=== PATIENT | male | born 1990 | race Caucasian/White ===

== ENCOUNTER → 2016-10-31 | Outpatient (CLI) | payer BC ==
--- NOTE | 2016-10-31 17:02 | US ---
EXAMINATION TYPE: US venous doppler duplex LE RT DATE OF EXAM: 10/31/2016 4:52 PM COMPARISON: NONE CLINICAL HISTORY: Right calf pain, no injury or trauma. Findings: There is normal compressibility and spontaneous flow. No DVT as visualized. IMPRESSION: 1. No evidence of DVT
== END | disposition home or self-care (01) ==
LOC: RADUSWWP 16:30
PROVIDERS: ATTEND Family Medicine
DX: M79.661 Pain in right lower leg (principal)

== ENCOUNTER 2017-04-30 13:42 | Emergency (ER) | payer BC ==
[2017-04-30] MEDS ORDERED: SODIUM CHLORIDE 0.9% 1,000 ML IV STA (13:53)
[2017-04-30] MEDS ORDERED: ACETAMINOPHEN TAB 500 MG TAB PO STA (13:54)
--- NOTE | 2017-04-30 13:56 | ED ---
General Adult HPI - General Stated complaint: Seizure Time Seen by Provider: 04/30/17 13:45 Source: RN notes reviewed - History of Present Illness Initial comments: This is a 26-year-old male who [place] was feeling mildly nauseous and very lightheaded and eventually sat down and according to family sees for approximately 3 minutes. Patient eventually came around and is now back to his baseline. Patient states she's very thirsty and does have a headache. Patient states she has not had any recent fever or chills. Patient denies any recent nausea vomiting or diarrhea. Patient states he was not drinking he did not have any illegal drugs that he was taking. Patient denies any difficulty breathing or shortness of breath patient denies any chest pain or palpitations. Patient denies any areas of numbness or weakness. Patient denies any previous history of seizures. Patient states he is on Adderall has been for years - Related Data Home Medications Medication Instructions Recorded Confirmed Dextroamphetamine/Amphetamine 30 mg PO QAM 04/30/17 04/30/17 [Adderall Xr] Ibuprofen [Motrin] 800 mg PO Q8H PRN 04/30/17 04/30/17 OXcarbazepine [Trileptal] 300 mg PO DAILY 04/30/17 04/30/17 Sertraline [Zoloft] 50 mg PO DAILY 04/30/17 04/30/17 Previous Rx's Medication Instructions Recorded Cephalexin [Keflex] 500 mg PO Q6HR #28 cap 04/30/17 Allergies Allergy/AdvReac Type Severity Reaction Status Date / Time No Known Allergies Allergy Verified 04/30/17 14:57 Review of Systems ROS Statement: Those systems with pertinent positive or pertinent negative responses have been documented in the HPI. ROS Other: All systems not noted in ROS Statement are negative. General Exam - General Exam Comments Initial Comments: GENERAL: Patient is well-developed and well-nourished. Patient is nontoxic and well- hydrated and is in mild distress. ENT: Neck is soft and supple. No significant lymphadenopathy is noted. Oropharynx is clear. Moist mucous membranes. Neck has full range of motion without eliciting any pain. EYES: The sclera were anicteric and conjunctiva were pink and moist. Extraocular movements were intact and pupils were equal round and reactive to light. Eyelids were unremarkable. PULMONARY: Unlabored respirations. Good breath sounds bilaterally. No audible rales rhonchi or wheezing was noted. CARDIOVASCULAR: There is a regular rate and rhythm without any murmurs gallops or rubs. Femoral pulses are equal bilaterally ABDOMEN: Soft and nontender with normal bowel sounds. No palpable organomegaly was noted. There is no palpable pulsatile mass. SKIN: Skin is clear with no lesions or rashes and otherwise unremarkable. NEUROLOGIC: Patient is alert and oriented x3. Cranial nerves II through XII are grossly intact. Motor and sensory are also intact. Normal speech, volume and content. Symmetrical smile. MUSCULOSKELETAL: Normal extremities with adequate strength and full range of motion. No lower extremity swelling or edema. No calf tenderness. LYMPHATICS: No significant lymphadenopathy is noted PSYCHIATRIC: Normal psychiatric evaluation. Normal interpersonal interactions appears functionally intact in deals appropriately with others. No signs of depression. No signs of anxiety. Course Vital Signs 04/30/17 04/30/17 13:55 14:45 Temperature 98.1 F Pulse Rate 98 95 Respiratory 18 18 Rate Blood Pressure 146/96 137/83 O2 Sat by Pulse 99 100 Oximetry Medical Decision Making - Medical Decision Making EKG shows normal sinus rhythm at 92 bpm NH interval is 134 QRS is 94 QT interval 390 QTC is 482. Patient's EKG shows no ST segment elevation or depression or T-wave inversion noted CT of the brain shows no acute abnormality. Chest x-ray shows no acute abnormality. - Lab Data Result diagrams: 04/30/17 13:54 04/30/17 14:51 Lab Results 04/30/17 04/30/17 04/30/17 Range/Units 13:54 14:16 14:51 WBC 7.1 (3.8-10.6) k/uL RBC 5.25 (4.30-5.90) m/uL Hgb 16.8 (13.0-17.5) gm/dL Hct 47.7 (39.0-53.0) % MCV 90.7 D (80.0-100.0) fL MCH 31.9 (25.0-35.0) pg MCHC 35.2 (31.0-37.0) g/dL RDW 12.7 (11.5-15.5) % Plt Count 130 L (150-450) k/uL Neutrophils % 72 % Lymphocytes % 16 % Monocytes % 6 % Eosinophils % 3 % Basophils % 0 % Neutrophils # 5.1 (1.3-7.7) k/uL Lymphocytes # 1.1 (1.0-4.8) k/uL Monocytes # 0.5 (0-1.0) k/uL Eosinophils # 0.2 (0-0.7) k/uL Basophils # 0.0 (0-0.2) k/uL PT 9.7 (9.0-12.0) sec INR 0.9 (<1.1) APTT 22.9 (22.0-30.0) sec Sodium (137-145) mmol/L Potassium (3.5-5.1) mmol/L Chloride (98-107) mmol/L Carbon Dioxide (22-30) mmol/L Anion Gap mmol/L BUN (9-20) mg/dL Creatinine (0.66-1.25) mg/dL Est GFR (MDRD) Af Amer (>60 ml/min/1.73 sqM) Est GFR (MDRD) Non-Af (>60 ml/min/1.73 sqM) Glucose (74-99) mg/dL Calcium (8.4-10.2) mg/dL Magnesium (1.6-2.3) mg/dL Total Bilirubin (0.2-1.3) mg/dL AST (17-59) U/L ALT (21-72) U/L Alkaline Phosphatase (38-126) U/L Total Creatine Kinase (55-170) U/L CK-MB (CK-2) (0.0-2.4) ng/mL CK-MB (CK-2) Rel Index Troponin I (0.000-0.034) ng/mL Total Protein (6.3-8.2) g/dL Albumin (3.5-5.0) g/dL Urine Opiates Screen Not Detected (NotDetected) Ur Oxycodone Screen Not Detected (NotDetected) Urine Methadone Screen Not Detected (NotDetected) Ur Propoxyphene Screen Not Detected (NotDetected) Ur Barbiturates Screen Not Detected (NotDetected) U Tricyclic Antidepress Not Detected (NotDetected) Ur Phencyclidine Scrn Not Detected (NotDetected) Ur Amphetamines Screen Detected H (NotDetected) U Methamphetamines Scrn Not Detected (NotDetected) U Benzodiazepines Scrn Not Detected (NotDetected) Urine Cocaine Screen Not Detected (NotDetected) U Marijuana (THC) Screen Detected H (NotDetected) 04/30/17 04/30/17 Range/Units 14:51 14:51 WBC (3.8-10.6) k/uL RBC (4.30-5.90) m/uL Hgb (13.0-17.5) gm/dL Hct (39.0-53.0) % MCV (80.0-100.0) fL MCH (25.0-35.0) pg MCHC (31.0-37.0) g/dL RDW (11.5-15.5) % Plt Count (150-450) k/uL Neutrophils % % Lymphocytes % % Monocytes % % Eosinophils % % Basophils % % Neutrophils # (1.3-7.7) k/uL Lymphocytes # (1.0-4.8) k/uL Monocytes # (0-1.0) k/uL Eosinophils # (0-0.7) k/uL Basophils # (0-0.2) k/uL PT (9.0-12.0) sec INR (<1.1) APTT (22.0-30.0) sec Sodium 140 (137-145) mmol/L Potassium 3.9 (3.5-5.1) mmol/L Chloride 110 H (98-107) mmol/L Carbon Dioxide 22 (22-30) mmol/L Anion Gap 8 mmol/L BUN 10 (9-20) mg/dL Creatinine 0.69 (0.66-1.25) mg/dL Est GFR (MDRD) Af Amer >60 (>60 ml/min/1.73 sqM) Est GFR (MDRD) Non-Af >60 (>60 ml/min/1.73 sqM) Glucose 104 H (74-99) mg/dL Calcium 8.7 (8.4-10.2) mg/dL Magnesium 2.4 H (1.6-2.3) mg/dL Total Bilirubin 0.7 (0.2-1.3) mg/dL AST 42 (17-59) U/L ALT 55 (21-72) U/L Alkaline Phosphatase 82 (38-126) U/L Total Creatine Kinase 167 (55-170) U/L CK-MB (CK-2) 0.9 (0.0-2.4) ng/mL CK-MB (CK-2) Rel Index 0.5 Troponin I <0.012 (0.000-0.034) ng/mL Total Protein 6.9 (6.3-8.2) g/dL Albumin 4.4 (3.5-5.0) g/dL Urine Opiates Screen (NotDetected) Ur Oxycodone Screen (NotDetected) Urine Methadone Screen (NotDetected) Ur Propoxyphene Screen (NotDetected) Ur Barbiturates Screen (NotDetected) U Tricyclic Antidepress (NotDetected) Ur Phencyclidine Scrn (NotDetected) Ur Amphetamines Screen (NotDetected) U Methamphetamines Scrn (NotDetected) U Benzodiazepines Scrn (NotDetected) Urine Cocaine Screen (NotDetected) U Marijuana (THC) Screen (NotDetected) Disposition Clinical Impression: New onset seizure, Abscess of left ear canal Disposition: HOME SELF-CARE Condition: Good Instructions: New-Onset Seizure in Adults (ED) Additional Instructions: Patient cannot drive until cleared by neurologist. Patient follow-up with a neurologist as soon as possible. Prescriptions: Cephalexin [Keflex] 500 mg PO Q6HR #28 cap Referrals: Danis Thomason MD [Primary Care Provider] - 1-2 days
[2017-04-30 13:58] VITALS: RESP 18
[2017-04-30 14:10] LABS: Basophils % (A) 0 %; CH 31.2; CHCM 34.4; Eosinophils # (A) 0.2 k/uL (0-0.7); Eosinophils % (A) 3 %; HCT 47.7 % (39.0-53.0); HDW 2.28; HGB 16.8 gm/dL (13.0-17.5); Luc # (Auto) 0.16; Luc % (Auto) 2; Lymphocytes # (A) 1.1 k/uL (1.0-4.8); Lymphocytes % (A) 16 %; MCH 31.9 pg (25.0-35.0); MCHC 35.2 g/dL (31.0-37.0); Mean Platelet Volume 8.2; Monocytes # (A) 0.5 k/uL (0-1.0); Monocytes % (A) 6 %; Neutrophils # (A) 5.1 k/uL (1.3-7.7); Neutrophils % (A) 72 %; RBC 5.25 m/uL (4.30-5.90); RDW 12.7 % (11.5-15.5); WBC 7.1 k/uL (3.8-10.6); WBC (Perox) 7.13
[2017-04-30 14:20] LABS: MCV 90.7 fL (80.0-100.0)
--- NOTE | 2017-04-30 14:36 | CT ---
EXAMINATION TYPE: CT brain wo con DATE OF EXAM: 04/30/2017 COMPARISON: NONE HISTORY: New onset seizure today CT DLP: 1012.7 mGycm. Automated Exposure Control for Dose Reduction was Utilized. TECHNIQUE: CT scan of the head is performed without contrast. FINDINGS: Ventricles of normal size. There is no mass effect nor midline shift. There is no sign of i ntracranial hemorrhage. The calvarium is intact. There is mucosal thickening in the ethmoid and front al sinuses. CONCLUSION: Negative CT scan of the brain. Ethmoid and frontal sinusitis.
--- NOTE | 2017-04-30 14:40 | XR ---
EXAMINATION TYPE: XR chest 2V DATE OF EXAM: 04/30/2017 COMPARISON: NONE HISTORY: Seizure. Chest pain TECHNIQUE: Frontal and lateral views of the chest are obtained. FINDINGS: Heart and mediastinum are normal. Lungs are clear. Diaphragm is normal. There are chest le ads. Point thorax appears normal. IMPRESSION: Normal chest
[2017-04-30 15:10] LABS: INR 0.9 (<1.1); Partial Thromboplastin Time 22.9 sec (22.0-30.0); Prothrombin Time 9.7 sec (9.0-12.0)
[2017-04-30 15:12] LABS: ALT 55 U/L (21-72); AST 42 U/L (17-59); Alkaline Phosphatase 82 U/L (38-126); Anion Gap 8 mmol/L; Blood Urea Nitrogen 10 mg/dL (9-20); Calcium 8.7 mg/dL (8.4-10.2); Carbon Dioxide 22 mmol/L (22-30); Chloride 110 mmol/L (98-107); Glucose 104 mg/dL (74-99); Magnesium 2.4 mg/dL (1.6-2.3); Non-African American GFR(MDRD) >60 (>60 ml/min/1.73 sqM); Potassium 3.9 mmol/L (3.5-5.1); Sodium 140 mmol/L (137-145); Total Bilirubin 0.7 mg/dL (0.2-1.3); Total Protein 6.9 g/dL (6.3-8.2)
[2017-04-30 15:24] LABS: Creatine Kinase 167 U/L (55-170)
[2017-04-30 15:37] LABS: Creatine Kinase MB 0.9 ng/mL (0.0-2.4); Troponin I <0.012 ng/mL (0.000-0.034)
[2017-04-30 16:03] VITALS: BP 126/82; PULSE 83; TEMP 98.4
== END 2017-04-30 16:03 | disposition home or self-care (01) ==
LOC: EC 13:42
DX: R56.9 Unspecified convulsions (principal); H60.02 Abscess of left external ear; R51 Headache; R11.0 Nausea; R42 Dizziness and giddiness; Z79.899 Other long term (current) drug therapy
CPT/HCPCS: 36415; 70450; 71020; 80053; 80306; 82550; 82553; 83735; 84484; 85025; 85610; 85730; 93005; 96360; 99285

== ENCOUNTER → 2017-06-20 | Outpatient (CLI) | payer BC ==
--- NOTE | 2017-06-20 12:35 | MR ---
EXAMINATION TYPE: MR brain wo/w con DATE OF EXAM: 06/20/2017 COMPARISON: NONE HISTORY: Seizure, Horners Syndrome TECHNIQUE: Multiplanar, multisequence images of the brain and brainstem is performed without and with IV contras t, utilizing 15 mL intravenous MultiHance . FINDINGS: Diffusion weighted images demonstrate no evidence of a recent infarct or other diffusion ab normality. There is no extra-axial fluid collection or significant white matter signal abnormality. Changes of chronic sinusitis are noted. Midline structures demonstrate normal morphology. The craniocervical junction appears within normal limits. Post contrast images demonstrate no abnormal enhancement. The dural venous sinuses appear pa tent. The visualized sinuses are clear and the globes are intact. IMPRESSION: 1. Chronic sinusitis with no evidence of intracranial mass.
== END ==
LOC: RADMRIMAIN 11:02
PROVIDERS: ATTEND Psychiatry & Neurology Neurology
DX: G90.2 Horner's syndrome (principal); R56.9 Unspecified convulsions
CPT/HCPCS: 70553; A9577

== ENCOUNTER 2018-04-23 12:43 | Observation (INO) | payer BC, OTHER ==
--- NOTE | 2018-04-23 13:23 | ED ---
Fall HPI <Jerson Barth - Last Filed: 04/23/18 14:55> - General Source: patient, RN notes reviewed Mode of arrival: ambulatory <Aracely Silva - Last Filed: 04/23/18 17:56> - General Chief Complaint: Fall Stated Complaint: Fall-Rib Pain Time Seen by Provider: 04/23/18 12:50 - History of Present Illness Initial Comments: This is a 27-year-old male who presents to the emergency department with chief complaint of fall injury. Patient states that last evening at approximately 6 or 7 PM he fell down 6 steps. He states that he landed on his left side. He states that he instantly he had a lot of left-sided rib pain but thought that he could ride it out. He states that today he has developed some difficulty breathing and pain with deep breathing. He states that he has also felt nauseous. Denies fevers or chills, chest pain, abdominal pain, vomiting, dizziness or headache. He denies any other injuries or trauma. (Aracely Silva) - Related Data Home Medications Medication Instructions Recorded Confirmed Ibuprofen [Advil] 600 mg PO Q6HR PRN 04/23/18 04/23/18 Allergies Allergy/AdvReac Type Severity Reaction Status Date / Time No Known Allergies Allergy Verified 04/23/18 13:11 Review of Systems ROS Other: All systems not noted in ROS Statement are negative. <Jerson Barth - Last Filed: 04/23/18 14:55> ROS Other: All systems not noted in ROS Statement are negative. <Aracely Silva - Last Filed: 04/23/18 17:56> ROS Statement: Those systems with pertinent positive or pertinent negative responses have been documented in the HPI. Past Medical History Past Medical History: No Reported History History of Any Multi-Drug Resistant Organisms: None Reported Past Surgical History: No Surgical Hx Reported Past Psychological History: No Psychological Hx Reported Smoking Status: Current every day smoker Past Alcohol Use History: Occasional Past Drug Use History: Marijuana <Aracely Silva - Last Filed: 04/23/18 17:56> General Exam <Jerson Barth - Last Filed: 04/23/18 14:55> Limitations: no limitations (Initial vital signs: Temperature 98.6, pulse 102, respirations 20, blood pressure 155/85, pulse ox 96% on room air) <Aracely Silva - Last Filed: 04/23/18 17:56> - General Exam Comments Initial Comments: General: Awake and alert, well-developed; in no apparent distress. Patient is pale, diaphoretic and shaking. HEENT: Head atraumatic, normocephalic. Pupils are equal, round and reactive to light. Extraocular movements intact. Oropharynx moist without erythema or exudate. Neck: Supple. Normal ROM. Cardiovascular: Regular rate and rhythm. No murmurs, rubs or gallops. Chest symmetrical. Respiratory: Shallow breathing. Decreased breath sounds left lung. Right is clear to auscultation. No wheezes or rales. There is subcutaneous emphysema palpated left posterior thoracic region. Abdomen: Soft, non-tender, non-distended. No rigidity, rebound or guarding. Normal bowel sounds in all 4 quadrants. Ecchymosis noted to the left flank. Musculoskeletal: Normal ROM, no tenderness bilateral upper and lower extremities. Skin: [place], warm and dry without rashes. Neurological: Alert and oriented x3. CN II-XII grossly intact. Speech is fluent and answers are appropriate. No focal neuro deficits. Psychiatric: Normal mood and affect. No overt signs of depression or anxiety noted. (Aracely Silva) Course <Jerson Barth B - Last Filed: 04/23/18 14:55> <Aracely Silva - Last Filed: 04/23/18 17:56> Vital Signs 04/23/18 04/23/18 04/23/18 12:50 13:17 13:19 Temperature 98.6 F Pulse Rate 102 H 110 H Respiratory 20 28 H 26 H Rate Blood Pressure 155/85 162/108 O2 Sat by Pulse 96 97 Oximetry 04/23/18 04/23/18 04/23/18 14:02 14:36 16:27 Temperature Pulse Rate 100 114 H 95 Respiratory 22 20 18 Rate Blood Pressure 145/104 155/99 156/98 O2 Sat by Pulse 99 99 99 Oximetry - Reevaluation(s) Reevaluation #1: Spoke with Dr. Law, radiologist. He reports flail chest with rib fractures 9 through 12. 25% pneumothorax with small hemothorax left lung. No solid visceral organ damage. I also spoke with Dr. Kahn prior to this about patient' s chest x-ray. He reported an approximately 10% pneumothorax. 04/23/18 14:05 (Aracely Silva) Medical Decision Making - Lab Data Result diagrams: 04/23/18 13:56 04/23/18 13:56 <Jerson Barth - Last Filed: 04/23/18 14:55> - Lab Data Result diagrams: 04/23/18 13:56 04/23/18 13:56 - Radiology Data Radiology results: report reviewed, image reviewed <Aracely Silva - Last Filed: 04/23/18 17:56> - Medical Decision Making This is a 27-year-old male who presents to the emergency department with chief complaint of left rib pain following a fall yesterday. Patient reported difficulty breathing and pain with breathing. On physical examination, subcutaneous emphysema was palpated to the left posterior chest wall, easily movable left posterior rib, suspicious for flail chest. Decreased breath sounds left lung. Ecchymosis noted to the left flank. This case was discussed with both attending physicians, Dr. Barth and Dr. Alejandro. After radiology studies have resulted, case was signed over to Dr. Barth. Patient admitted to the hospital for further evaluation and treatment. Patient in no acute distress. (Aracely Silva) - Lab Data Lab Results 04/23/18 04/23/18 Range/Units 13:56 13:56 WBC 11.7 H (3.8-10.6) k/uL RBC 4.81 (4.30-5.90) m/uL Hgb 15.5 (13.0-17.5) gm/dL Hct 45.1 (39.0-53.0) % MCV 93.7 (80.0-100.0) fL MCH 32.1 (25.0-35.0) pg MCHC 34.3 (31.0-37.0) g/dL RDW 13.1 (11.5-15.5) % Plt Count 217 (150-450) k/uL Neutrophils % 84 % Lymphocytes % 8 % Monocytes % 7 % Eosinophils % 0 % Basophils % 0 % Neutrophils # 9.8 H (1.3-7.7) k/uL Lymphocytes # 0.9 L (1.0-4.8) k/uL Monocytes # 0.8 (0-1.0) k/uL Eosinophils # 0.0 (0-0.7) k/uL Basophils # 0.0 (0-0.2) k/uL Sodium 135 L (137-145) mmol/L Potassium 4.8 (3.5-5.1) mmol/L Chloride 94 L (98-107) mmol/L Carbon Dioxide 15 L (22-30) mmol/L Anion Gap 26 mmol/L BUN 13 (9-20) mg/dL Creatinine 0.71 (0.66-1.25) mg/dL Est GFR (CKD-EPI)AfAm >90 (>60 ml/min/1.73 sqM) Est GFR (CKD-EPI)NonAf >90 (>60 ml/min/1.73 sqM) Glucose 114 H (74-99) mg/dL Calcium 9.4 (8.4-10.2) mg/dL Total Bilirubin 0.9 (0.2-1.3) mg/dL AST 90 H (17-59) U/L ALT 110 H (21-72) U/L Alkaline Phosphatase 78 (38-126) U/L Total Protein 7.5 (6.3-8.2) g/dL Albumin 5.1 H (3.5-5.0) g/dL - Radiology Data Chest CT impression: Small left apical pneumothorax estimated 10%. Patchy bibasilar atelectasis and/or infiltrates. No definitive displaced rib fractures. Consider CT follow-up. (Aracely Silva) Disposition Is patient prescribed a controlled substance at d/c from ED?: No <Jerson Barth - Last Filed: 04/23/18 14:55> <Aracely Silva - Last Filed: 04/23/18 17:56> Clinical Impression: Fall, Multiple rib fractures, Pneumothorax, left Disposition: ADMITTED IP TO THIS HOSP Condition: Good
--- NOTE | 2018-04-23 13:35 | XR ---
EXAMINATION TYPE: XR chest 1V portable DATE OF EXAM: 04/23/2018 COMPARISON: Chest x-ray April 30, 2017 HISTORY: Left-sided pain after fall injury last night. TECHNIQUE: Single AP portable frontal upright view of the chest is obtained. FINDINGS: There is bibasilar opacity consistent with atelectasis and/or infiltrate. There is small l eft-sided pneumothorax estimated 10%. The cardiac silhouette size is within normal limits. The osse ous structures are intact on plain films. IMPRESSION: Small left apical pneumothorax estimated 10%. Patchy bibasilar atelectasis and/or infilt rates. No definitive displaced rib fractures. Consider CT follow-up. Critical results of pneumothorax called to emergency room physician social service assistant via telephone at time o f dictation.
[2018-04-23] MEDS: MORPHINE SULFATE 2 MG/ML SYRINGE IVP STA ×2 (14:01→14:30)
--- NOTE | 2018-04-23 14:04 | CT ---
EXAMINATION TYPE: CT ChestAbdPelvis w con DATE OF EXAM: 04/23/2018 COMPARISON: NONE HISTORY: Fall-Rib pain CT DLP: 868.30 mGycm CONTRAST: CT scan of the chest, abdomen and pelvis is performed with Oral Contrast and with IV Contrast, patien t injected with 100 ml mL of Isovue 300. CT Chest: LUNGS: Left-sided pneumothorax identified estimated at 25%. Left basilar pneumothorax with the left l ower lobe atelectasis or pulmonary contusion. Atelectasis right lower lobe anteriorly. Left-sided sub cutaneous emphysema. MEDIASTINUM: Thoracic aorta is of normal caliber. The heart is not enlarged. No evidence for media stinal mass or adenopathy. No mediastinal shift. HILAR STRUCTURES: No evidence for mass. No hilar adenopathy is appreciated. OTHER: Left sided segmental rib fractures of the 9 through 11. Fracture of left rib 12. Flail chest n ot excluded. CONTRAST CT ABDOMEN AND PELVIS FINDINGS: LIVER/GB: There is evidence of hepatic steatosis. No calcified gallstones. No space occupying hepat ic lesion. Biliary tree is of normal caliber. Fatty liver noted. PANCREAS: No inflammation. No distinct mass. SPLEEN: No splenic enlargement. No lesion seen. ADRENALS: No nodule. No thickening. KIDNEYS/BLADDER: No hydronephrosis. No nephrolithiasis. No disctinct renal mass. BOWEL: Normal appendix. Normal bowel caliber. No inflammation. GENITAL ORGANS: No gross abnormality. LYMPH NODES: No greater than 1cm abdominal or pelvic lymph nodes are appreciated. AORTA: No significant abnormality. OSSEOUS STRUCTURES: No significant abnormality is seen. OTHER: No significant additional abnormality is seen. IMPRESSION: 1. Left-sided pneumothorax identified estimated at 25%. Left basilar pneumothorax with the left lower lobe atelectasis or pulmonary contusion. 2. Multiple left-sided rib fractures with segmental components. Findings suspicious for flail chest.
[2018-04-23] MEDS ORDERED: LORazepam 2 MG/ML INJ IV STA (14:31)
[2018-04-23] MEDS ORDERED: KETOROLAC 30 MG/ML 1 ML VIAL IVP STA (14:31)
[2018-04-23 14:35] LABS: Basophils % (A) 0 %; Eosinophils % (A) 0 %; HCT 45.1 % (39.0-53.0); HGB 15.5 gm/dL (13.0-17.5); Lymphocytes # (A) 0.9 k/uL (1.0-4.8); Lymphocytes % (A) 8 %; MCH 32.1 pg (25.0-35.0); MCHC 34.3 g/dL (31.0-37.0); MCV 93.7 fL (80.0-100.0); Mean Platelet Volume 7.6; Monocytes # (A) 0.8 k/uL (0-1.0); Monocytes % (A) 7 %; Neutrophils # (A) 9.8 k/uL (1.3-7.7); Neutrophils % (A) 84 %; Platelet Count 217 k/uL (150-450); RBC 4.81 m/uL (4.30-5.90); RDW 13.1 % (11.5-15.5); WBC 11.7 k/uL (3.8-10.6)
[2018-04-23 14:49] LABS: ALT 110 U/L (21-72); AST 90 U/L (17-59); Albumin 5.1 g/dL (3.5-5.0); Alkaline Phosphatase 78 U/L (38-126); Anion Gap 26 mmol/L; Blood Urea Nitrogen 13 mg/dL (9-20); Calcium 9.4 mg/dL (8.4-10.2); Carbon Dioxide 15 mmol/L (22-30); Chloride 94 mmol/L (98-107); Glucose 114 mg/dL (74-99); Potassium 4.8 mmol/L (3.5-5.1); Sodium 135 mmol/L (137-145); Total Bilirubin 0.9 mg/dL (0.2-1.3); Total Protein 7.5 g/dL (6.3-8.2)
[2018-04-23] MEDS ORDERED: SODIUM CHLORIDE 0.9% 1,000 ML IV ONE (14:56)
--- NOTE | 2018-04-23 15:06 | P.GSCN ---
<Regla Genao - Last Filed: 04/23/18 14:54> History of Present Illness Consult date: 04/23/18 Reason for Consult: Left pneumothorax, possible flail chest Requesting physician: Jerson Barth History of present illness: This is a 27-year-old gentleman who does not follow with a primary care physician on an outpatient basis. He has no significant previous medical history other than current pack-a-day smoker, occasional marijuana use, occasional alcohol use. Apparently he fell down 6 stairs last night after tripping over issue and immediately felt some left-sided chest pain but felt he could wait it out. This morning he woke up had increased pain and difficulty in breathing and felt he needed to come into the emergency room for evaluation. Chest x-ray completed in the emergency room demonstrated small left apical pneumothorax approximately 10%. Left-sided pneumothorax was identified on chest CT as well as rib fractures 9 through 11 and 12, flail chest could not be excluded. For this reason Dr. Guerra from cardiothoracic surgery was consulted for surgical recommendations. Review of Systems Review of systems was completed and was negative except as noted. - Cardiovascular Reports chest pain, Reports shortness of breath - Respiratory Reports pain Past Medical History Past Medical History: No Reported History Additional Past Medical History / Comment(s): Patient reports one seizure with no treatment or known cause History of Any Multi-Drug Resistant Organisms: None Reported Past Surgical History: No Surgical Hx Reported Past Psychological History: No Psychological Hx Reported Smoking Status: Current every day smoker Past Alcohol Use History: Occasional Past Drug Use History: Marijuana Medications and Allergies Home Medications Medication Instructions Recorded Confirmed Type Ibuprofen [Advil] 600 mg PO Q6HR PRN 04/23/18 04/23/18 History HYDROcodone/APAP 10-325MG [[place] 1 tab PO Q4HR PRN #30 tab 04/24/18 Rx 10-325] Ibuprofen 800 mg PO Q8HR #45 tablet 04/24/18 Rx Methocarbamol [Robaxin-750] 750 mg PO TID #30 tablet 04/24/18 Rx Allergies Allergy/AdvReac Type Severity Reaction Status Date / Time No Known Allergies Allergy Verified 04/23/18 13:11 Surgical - Exam Vital Signs Temp Pulse Resp BP Pulse Ox 98.6 F 102 H 20 155/85 96 04/23/18 12:50 04/23/18 12:50 04/23/18 12:50 04/23/18 12:50 04/23/18 12:50 - General well developed, well nourished, no distress - Eyes PERRL, normal ocular movement - ENT no hearing loss - Neck no masses, no bruits, trachea midline - Respiratory Lungs sounds diminished on the left. Respirations even, nonlabored. Currently on 2 L nasal cannula with oxygen saturation 99%. No paradoxical movement of the chest wall. - Cardiovascular S1, S2 present. Tachycardic but regular rate and rhythm, sinus tach on telemetry. Palpable peripheral pulses bilaterally. No edema present. No calf pain or tenderness noted. - Abdomen Abdomen: soft, non tender, bowel sounds - Genitourinary Deferred - Rectum Deferred - Integumentary no rash, no growths, no abnormal pigmentation - Neurologic normal coordination, normal sensation - Psychiatric oriented to time, oriented to person, oriented to place, speech is normal, memory intact Results - Labs 04/23/18 13:56 04/23/18 13:56 Abnormal Lab Results - Last 24 Hours (Table) 04/23/18 04/23/18 Range/Units 13:56 13:56 WBC 11.7 H (3.8-10.6) k/uL Neutrophils # 9.8 H (1.3-7.7) k/uL Lymphocytes # 0.9 L (1.0-4.8) k/uL Sodium 135 L (137-145) mmol/L Chloride 94 L (98-107) mmol/L Carbon Dioxide 15 L (22-30) mmol/L Glucose 114 H (74-99) mg/dL AST 90 H (17-59) U/L ALT 110 H (21-72) U/L Albumin 5.1 H (3.5-5.0) g/dL Diabetes panel 04/23/18 Range/Units 13:56 Sodium 135 L (137-145) mmol/L Potassium 4.8 (3.5-5.1) mmol/L Chloride 94 L (98-107) mmol/L Carbon Dioxide 15 L (22-30) mmol/L BUN 13 (9-20) mg/dL Creatinine 0.71 (0.66-1.25) mg/dL Glucose 114 H (74-99) mg/dL Calcium 9.4 (8.4-10.2) mg/dL AST 90 H (17-59) U/L ALT 110 H (21-72) U/L Alkaline Phosphatase 78 (38-126) U/L Total Protein 7.5 (6.3-8.2) g/dL Albumin 5.1 H (3.5-5.0) g/dL Calcium panel 04/23/18 Range/Units 13:56 Calcium 9.4 (8.4-10.2) mg/dL Albumin 5.1 H (3.5-5.0) g/dL Pituitary panel 04/23/18 Range/Units 13:56 Sodium 135 L (137-145) mmol/L Potassium 4.8 (3.5-5.1) mmol/L Chloride 94 L (98-107) mmol/L Carbon Dioxide 15 L (22-30) mmol/L BUN 13 (9-20) mg/dL Creatinine 0.71 (0.66-1.25) mg/dL Glucose 114 H (74-99) mg/dL Calcium 9.4 (8.4-10.2) mg/dL Adrenal panel 04/23/18 Range/Units 13:56 Sodium 135 L (137-145) mmol/L Potassium 4.8 (3.5-5.1) mmol/L Chloride 94 L (98-107) mmol/L Carbon Dioxide 15 L (22-30) mmol/L BUN 13 (9-20) mg/dL Creatinine 0.71 (0.66-1.25) mg/dL Glucose 114 H (74-99) mg/dL Calcium 9.4 (8.4-10.2) mg/dL Total Bilirubin 0.9 (0.2-1.3) mg/dL AST 90 H (17-59) U/L ALT 110 H (21-72) U/L Alkaline Phosphatase 78 (38-126) U/L Total Protein 7.5 (6.3-8.2) g/dL Albumin 5.1 H (3.5-5.0) g/dL - Imaging Chest x-ray: report reviewed, image reviewed CT scan - chest: report reviewed, image reviewed Assessment and Plan (1) Pneumothorax Status: Acute Code(s): J93.9 - PNEUMOTHORAX, UNSPECIFIED SNOMED Code(s): 16975635 (2) Rib fractures Status: Acute Code(s): S22.39XA - FRACTURE OF ONE RIB, UNSP SIDE, INIT FOR CLOS FX SNOMED Code(s): 26848027 (3) Tobacco dependence Status: Chronic Code(s): F17.200 - NICOTINE DEPENDENCE, UNSPECIFIED, UNCOMPLICATED SNOMED Code(s): 49310513 (4) Marijuana use Status: Chronic Code(s): F12.90 - CANNABIS USE, UNSPECIFIED, UNCOMPLICATED SNOMED Code(s): 069591708 (5) Fall from standing Status: Acute Code(s): W19.XXXA - UNSPECIFIED FALL, INITIAL ENCOUNTER SNOMED Code(s): 9847752 Plan: The patient was seen and examined in the emergency room. He is in no significant distress. Case discussed in detail with Dr. Guerra, he reviewed chest x-ray in CT films. At this time our recommendation is to place patient on oxygen via high flow nasal cannula, encourage incentive spirometry use, chest x-ray in the morning, pain control, and no surgical intervention at this point. We will check his x-ray results tomorrow morning and make further treatment recommendations at that time. Thank you for this consult. We look forward to working with you in the care of the patient. Time with Patient: Greater than 30 <Meet Guerra R - Last Filed: 04/25/18 12:04> Surgical - Exam Vital Signs Temp Pulse Resp BP Pulse Ox 98.6 F 102 H 20 155/85 96 04/23/18 12:50 04/23/18 12:50 04/23/18 12:50 04/23/18 12:50 04/23/18 12:50 Results - Labs 04/23/18 13:56 04/23/18 13:56 Assessment and Plan Assessment: Patient was seen and examined. Radiologic studies were reviewed. Case was discussed with nurse practitioner. I agree with the nurse practitioner assessment and evaluation as documented. Patient has a small pneumothorax which should be able to be managed conservatively. There is no significant fluid in the pleural space. There are 4 minimally to nondisplaced posterior rib fractures ribs and 08/07/2012. These also could be successfully and safely managed conservatively. We will keep the patient overnight and reevaluate chest x-ray in the morning.
[2018-04-23] MEDS ORDERED: METHOCARBAMOL 750 MG TAB PO PRN (16:37)
[2018-04-23] MEDS: MORPHINE SULFATE 2 MG/ML SYRINGE IVP PRN ×2 (16:49→22:19)
[2018-04-23] MEDS: KETOROLAC 30 MG/ML 1 ML VIAL IVP SCH ×2 (17:02→23:41)
--- NOTE | 2018-04-23 17:05 | P.GSHP ---
History of Present Illness H&P Date: 04/23/18 This is a 27-year-old male who fell down 6 stairs after tripping on a shoe last night. He was complaining of some back and chest pain last night however he thought that it would get better on its own when he woke up this morning the pain was still there and continued throughout the day so he presented to the emergency department. In the emergency department he was found have multiple rib fractures on the left side with a 25% pneumothorax on computed tomography scan. Patient denies any abdominal pain he denies hitting his head he denies any loss of consciousness. He has no significant past medical history. Past surgical history of a hydrocele and right shoulder surgery Past Medical History Past Medical History: No Reported History Additional Past Medical History / Comment(s): Patient reports one seizure with no treatment or known cause History of Any Multi-Drug Resistant Organisms: None Reported Past Surgical History: No Surgical Hx Reported Past Psychological History: No Psychological Hx Reported Smoking Status: Current every day smoker Past Alcohol Use History: Occasional Past Drug Use History: Marijuana Medications and Allergies Home Medications Medication Instructions Recorded Confirmed Type Ibuprofen [Advil] 600 mg PO Q6HR PRN 04/23/18 04/23/18 History Allergies Allergy/AdvReac Type Severity Reaction Status Date / Time No Known Allergies Allergy Verified 04/23/18 13:11 Surgical - Exam Osteopathic Statement: *. No significant issues noted on an osteopathic structural exam other than those noted in the History and Physical/Consult. Vital Signs Temp Pulse Resp BP Pulse Ox 98.6 F 102 H 20 155/85 96 04/23/18 12:50 04/23/18 12:50 04/23/18 12:50 04/23/18 12:50 04/23/18 12:50 Results - Labs 04/23/18 13:56 04/23/18 13:56 Abnormal Lab Results - Last 24 Hours (Table) 04/23/18 04/23/18 Range/Units 13:56 13:56 WBC 11.7 H (3.8-10.6) k/uL Neutrophils # 9.8 H (1.3-7.7) k/uL Lymphocytes # 0.9 L (1.0-4.8) k/uL Sodium 135 L (137-145) mmol/L Chloride 94 L (98-107) mmol/L Carbon Dioxide 15 L (22-30) mmol/L Glucose 114 H (74-99) mg/dL AST 90 H (17-59) U/L ALT 110 H (21-72) U/L Albumin 5.1 H (3.5-5.0) g/dL Diabetes panel 04/23/18 Range/Units 13:56 Sodium 135 L (137-145) mmol/L Potassium 4.8 (3.5-5.1) mmol/L Chloride 94 L (98-107) mmol/L Carbon Dioxide 15 L (22-30) mmol/L BUN 13 (9-20) mg/dL Creatinine 0.71 (0.66-1.25) mg/dL Glucose 114 H (74-99) mg/dL Calcium 9.4 (8.4-10.2) mg/dL AST 90 H (17-59) U/L ALT 110 H (21-72) U/L Alkaline Phosphatase 78 (38-126) U/L Total Protein 7.5 (6.3-8.2) g/dL Albumin 5.1 H (3.5-5.0) g/dL Calcium panel 04/23/18 Range/Units 13:56 Calcium 9.4 (8.4-10.2) mg/dL Albumin 5.1 H (3.5-5.0) g/dL Pituitary panel 04/23/18 Range/Units 13:56 Sodium 135 L (137-145) mmol/L Potassium 4.8 (3.5-5.1) mmol/L Chloride 94 L (98-107) mmol/L Carbon Dioxide 15 L (22-30) mmol/L BUN 13 (9-20) mg/dL Creatinine 0.71 (0.66-1.25) mg/dL Glucose 114 H (74-99) mg/dL Calcium 9.4 (8.4-10.2) mg/dL Adrenal panel 04/23/18 Range/Units 13:56 Sodium 135 L (137-145) mmol/L Potassium 4.8 (3.5-5.1) mmol/L Chloride 94 L (98-107) mmol/L Carbon Dioxide 15 L (22-30) mmol/L BUN 13 (9-20) mg/dL Creatinine 0.71 (0.66-1.25) mg/dL Glucose 114 H (74-99) mg/dL Calcium 9.4 (8.4-10.2) mg/dL Total Bilirubin 0.9 (0.2-1.3) mg/dL AST 90 H (17-59) U/L ALT 110 H (21-72) U/L Alkaline Phosphatase 78 (38-126) U/L Total Protein 7.5 (6.3-8.2) g/dL Albumin 5.1 H (3.5-5.0) g/dL Assessment and Plan Assessment: Multiple rib fx and pneumothorax s/p fall down 6 stairs Plan: Patient was seen by thoracic surgery in the emergency department. They did not recommend thora-Vent or chest tube placement at this time. Patient was started on oxygen via nasal cannula and will have a repeat chest x-ray in the morning. He'll be started on morphine, [place], Robaxin, and Toradol for pain control. The importance of incentive spirometry and deep breathing was discussed with the patient who stated he understood and would comply.
[2018-04-23 19:16] VITALS: RESP 18
[2018-04-23] MEDS: HYDROcodone/APAP 5-325MG 1 EACH TAB PO PRN (19:52)
[2018-04-23] MEDS ORDERED: ONDANSETRON 4 MG/2 ML VIAL IVP PRN (19:59)
[2018-04-24] MEDS: MORPHINE SULFATE 2 MG/ML SYRINGE IVP PRN ×3 (02:13→09:20)
[2018-04-24] MEDS: HYDROcodone/APAP 5-325MG 1 EACH TAB PO PRN ×2 (04:15→11:28)
[2018-04-24] MEDS: KETOROLAC 30 MG/ML 1 ML VIAL IVP SCH ×2 (05:57→11:29)
[2018-04-24 06:03] VITALS: BP 156/107; PULSE 83; TEMP 98
--- NOTE | 2018-04-24 07:42 | XR ---
EXAMINATION TYPE: XR chest 2V DATE OF EXAM: 04/24/2018 COMPARISON: 04/23/2018 HISTORY: Chest pain TECHNIQUE: Frontal and lateral views of the chest are obtained. FINDINGS: Left-sided pneumothorax is noted estimated at between 20 and 15%. Left basilar atelectasis or contusion with small hemothorax. The cardiac silhouette size is within normal limits. Left-sided rib fractures described on CT of the chest. IMPRESSION: 1. Left-sided pneumothorax is noted estimated at between 20 and 15%. Left basilar atelectasis or contusion with small hemothorax.
--- NOTE | 2018-04-24 10:17 | P.PN ---
Subjective Progress Note Date: 04/24/18 Principal diagnosis: Left pneumothorax. Previous medical history of tobacco dependence, occasional marijuana use, occasional alcohol use. Patient currently sitting up in bed in no acute distress. States pain is controlled on current medications. Denies shortness of breath. No new complaints. Objective - Vital Signs Vital signs: Vital Signs Temp 98.0 F 04/24/18 06:03 Pulse 83 04/24/18 06:03 Resp 18 04/24/18 06:03 BP 156/107 04/24/18 06:03 Pulse Ox 99 04/24/18 06:03 Intake & Output 04/23/18 04/24/18 04/24/18 18:59 06:59 18:59 Weight 83.915 kg Other: Voiding Method Toilet Urinal # Voids 0 1 - Constitutional General appearance: Present: cooperative, no acute distress - Respiratory Details: Lungs sounds diminished bilaterally, left greater than right. Respirations even , nonlabored. Currently on 8 L high flow nasal cannula with oxygen saturation 99%. - Cardiovascular Details: S1, S2 present. Regular rate and rhythm. Palpable peripheral pulses bilaterally. No edema present. No calf pain or tenderness noted. - Gastrointestinal Gastrointestinal Comment(s): Abdomen soft, nontender, nondistended. Active bowel sounds 4 quadrants. Tolerating diet - Genitourinary Genitourinary Comment(s): Voiding clear, yellow urine. - Integumentary Integumentary Comment(s): Skin is warm and dry with evidence of good perfusion. - Neurologic Neurologic: Present: CNII-XII intact - Musculoskeletal Musculoskeletal: Present: gait normal, strength equal bilaterally - Psychiatric Psychiatric: Present: A&O x's 3, appropriate affect, intact judgment & insight - Allied health notes Allied health notes reviewed: nursing - Labs CBC & Chem 7: 04/23/18 13:56 04/23/18 13:56 Labs: Abnormal Lab Results - Last 24 Hours (Table) 04/23/18 04/23/18 Range/Units 13:56 13:56 WBC 11.7 H (3.8-10.6) k/uL Neutrophils # 9.8 H (1.3-7.7) k/uL Lymphocytes # 0.9 L (1.0-4.8) k/uL Sodium 135 L (137-145) mmol/L Chloride 94 L (98-107) mmol/L Carbon Dioxide 15 L (22-30) mmol/L Glucose 114 H (74-99) mg/dL AST 90 H (17-59) U/L ALT 110 H (21-72) U/L Albumin 5.1 H (3.5-5.0) g/dL - Imaging and Cardiology Chest x-ray: report reviewed, image reviewed Assessment and Plan (1) Pneumothorax Current Visit: Yes Status: Acute Code(s): J93.9 - PNEUMOTHORAX, UNSPECIFIED SNOMED Code(s): 84343177 (2) Rib fractures Current Visit: Yes Status: Acute Code(s): S22.39XA - FRACTURE OF ONE RIB, UNSP SIDE, INIT FOR CLOS FX SNOMED Code(s): 77093465 (3) Tobacco dependence Current Visit: Yes Status: Chronic Code(s): F17.200 - NICOTINE DEPENDENCE, UNSPECIFIED, UNCOMPLICATED SNOMED Code(s): 65543412 (4) Marijuana use Current Visit: Yes Status: Chronic Code(s): F12.90 - CANNABIS USE, UNSPECIFIED, UNCOMPLICATED SNOMED Code(s): 599137057 (5) Fall from standing Current Visit: Yes Status: Acute Code(s): W19.XXXA - UNSPECIFIED FALL, INITIAL ENCOUNTER SNOMED Code(s): 2368120 Plan: 1. No surgical intervention warranted at this time. Patient may be discharged to home from our standpoint with follow-up appointments and x-ray in one week. 2. Encourage smoking cessation. 3. Encourage incentive spirometry use. 4. Pain management per primary care service. 5. Follow up appointment made, prescription for chest x-ray placed on patient' s chart. Time with Patient: Greater than 30
--- NOTE | 2018-04-24 11:40 | P.PN ---
Subjective Progress Note Date: 04/24/18 Patient doing well, pain better controlled today Objective - Vital Signs Vital signs: Vital Signs Temp 98.0 F 04/24/18 06:03 Pulse 83 04/24/18 06:03 Resp 18 04/24/18 08:00 BP 156/107 04/24/18 06:03 Pulse Ox 99 04/24/18 06:03 Intake & Output 04/23/18 04/24/18 04/24/18 18:59 06:59 18:59 Output Total 500 Balance -500 Weight 83.915 kg Output: Urine 500 Other: Voiding Method Toilet Urinal # Voids 0 1 - Constitutional General appearance: Present: cooperative - Respiratory Details: nonlabored - Cardiovascular Rhythm: regular - Labs CBC & Chem 7: 04/23/18 13:56 04/23/18 13:56 Labs: Abnormal Lab Results - Last 24 Hours (Table) 04/23/18 04/23/18 Range/Units 13:56 13:56 WBC 11.7 H (3.8-10.6) k/uL Neutrophils # 9.8 H (1.3-7.7) k/uL Lymphocytes # 0.9 L (1.0-4.8) k/uL Sodium 135 L (137-145) mmol/L Chloride 94 L (98-107) mmol/L Carbon Dioxide 15 L (22-30) mmol/L Glucose 114 H (74-99) mg/dL AST 90 H (17-59) U/L ALT 110 H (21-72) U/L Albumin 5.1 H (3.5-5.0) g/dL Assessment and Plan Assessment: Multiple rib fx and pneumothorax s/p fall down 6 stairs Plan: Pneumothorax stable and patient cleared for DC per CT surg. He will follow up with CT surg and is scheduled for outpatient CXR. instructed to return to ED if he has SOB or worsening Chest pain
--- NOTE | 2018-04-28 11:45 | CDI ---
Outpatient Documentation Clarification Form Date: 04-28-18 CDS/Habilitation Worker Name: FIFI ASKEW Phone: If you have question, contact Kinza Garcia, [facility] at [phone] M-F 8:30 am to 6pm. Patient Name: BRINA RAYGOZA Admit Date: 04-23-18 Discharge Date: 04-24-18 ATTENTION: The Clinical Documentation Specialists (CDI) and [facility] Coding Staff appreciate your assistance in clarifying documentation. Please respond to the clarification below the line at the bottom and electronically sign. The CDI & [facility] Coding staff will review the response and follow-up if needed. Please note: Queries are made part of the Legal Health Record. If you have any questions, please contact the author of this message via ITS or call the [facility]. Dr. Tyson, Please confirm if patient ruled in for "flail chest". Please add below the line: -"Flail Chest" or -'suspected flail chest" Thank you for your time, Fifi Askew no clinical sign of flail chest MTDD
== END 2018-04-24 13:08 | disposition home or self-care (01) ==
LOC: EC 12:43 → 4MS4W 14:56
PROVIDERS: ADMIT Student in an Organized Health Care Education/Training Program; ATTEND Student in an Organized Health Care Education/Training Program
DX: S27.0XXA Traumatic pneumothorax, initial encounter (principal); S22.42XA Multiple fractures of ribs, left side, initial encounter for closed fracture; T79.7XXA Traumatic subcutaneous emphysema, initial encounter; W10.9XXA Fall (on) (from) unspecified stairs and steps, initial encounter; F17.210 Nicotine dependence, cigarettes, uncomplicated; Z79.1 Long term (current) use of non-steroidal anti-inflammatories (NSAID); Z79.899 Other long term (current) drug therapy
CPT/HCPCS: 99285; 96374 ×2; 96376 ×4; 96375 ×4; 96361 ×5; 36415; 80053; 85025; 71045; 71046; 71260; 74177; G0378 ×2; J2060; J2405; J1885 ×2; J2270 ×2; Q9967

== ENCOUNTER → 2018-05-08 | Outpatient (CLI) | payer SELFPAY ==
--- NOTE | 2018-05-08 10:28 | XR ---
EXAMINATION TYPE: XR chest 2V DATE OF EXAM: 05/08/2018 COMPARISON: Chest x-ray April 24, [address] chest abdomen and pelvis April 23, 2018. HISTORY: Fall injury with left-sided rib fractures and pneumothorax TECHNIQUE: Frontal and lateral views of the chest are obtained. FINDINGS: There is persistent small left apical pneumothorax diminished in size from prior. There is persistent small left pleural fluid collection and associated left basilar atelectasis. Right lung i s clear on current study with resolution of basilar atelectasis no mediastinal shift is present. The cardiac silhouette size is within normal limits. Left-sided rib fractures are less well seen on plain films versus CT. IMPRESSION: Persistent but improving small left apical pneumothorax. Interval resolution of right ba silar atelectasis. Persistent stable small left pleural fluid collection and associated left basilar atelectasis.
== END | disposition home or self-care (01) ==
LOC: RADXRMAIN 10:01
PROVIDERS: ATTEND Nurse Practitioner Acute Care
DX: J93.9 Pneumothorax, unspecified (principal); J98.11 Atelectasis; J90 Pleural effusion, not elsewhere classified
CPT/HCPCS: 71046

== ENCOUNTER 2018-06-02 14:13 | Inpatient (IN) | payer OTHER ==
[2018-06-02] MEDS ORDERED: LIDOCAINE 1% INJ 10MG/ML (20 ML MDV) SQ ONE (14:45)
[2018-06-02] MEDS ORDERED: KETOROLAC 30 MG/ML 1 ML VIAL IVP STA (14:48)
--- NOTE | 2018-06-02 14:55 | ED ---
General Adult HPI - General Chief complaint: Shortness of Breath Stated complaint: collapsed lung/rib pain Time Seen by Provider: 06/02/18 14:37 Source: patient, RN notes reviewed, old records reviewed Mode of arrival: ambulatory Limitations: no limitations - History of Present Illness Initial comments: 27-year-old male presents with chief complaint of left-sided chest pain and dyspnea. Patient is a very poor historian and appears clinically intoxicated. Best I can determine patient had a pneumothorax within the past several months and states he has recurrent pneumothorax and was scheduled for chest tube placement as an outpatient. He describes sharp left-sided chest pain worse with deep inspiration. Denies any recent trauma. - Related Data Home Medications Medication Instructions Recorded Confirmed No Known Home Medications 06/02/18 06/02/18 Allergies Allergy/AdvReac Type Severity Reaction Status Date / Time No Known Allergies Allergy Verified 06/02/18 15:48 Review of Systems ROS Statement: Those systems with pertinent positive or pertinent negative responses have been documented in the HPI. ROS Other: All systems not noted in ROS Statement are negative. Past Medical History Past Medical History: No Reported History Additional Past Medical History / Comment(s): Patient reports one seizure with no treatment or known cause History of Any Multi-Drug Resistant Organisms: None Reported Past Surgical History: No Surgical Hx Reported Additional Past Surgical History / Comment(s): hydrocele, rt shoulder sx, inguinal hernia repair as infant(not sure which side) Past Anesthesia/Blood Transfusion Reactions: No Reported Reaction Past Psychological History: No Psychological Hx Reported Smoking Status: Current every day smoker Past Alcohol Use History: Occasional Past Drug Use History: Marijuana - Past Family History Mother Family Medical History: No Reported History Father Family Medical History: Cancer, Prostate Disorder Additional Family Medical History / Comment(s): prostate cancer General Exam Limitations: no limitations General appearance: alert, in no apparent distress Head exam: Present: atraumatic, normocephalic Eye exam: Present: normal appearance, PERRL ENT exam: Present: normal exam Neck exam: Present: normal inspection. Absent: tenderness, meningismus Respiratory exam: Present: decreased breath sounds (Decreased breath sounds on the left). Absent: respiratory distress Cardiovascular Exam: Present: normal rhythm, tachycardia GI/Abdominal exam: Present: soft. Absent: distended, tenderness, guarding Extremities exam: Present: normal inspection, normal capillary refill. Absent: pedal edema Back exam: Present: normal inspection, full ROM Neurological exam: Present: alert, oriented X3, CN II-XII intact. Absent: motor sensory deficit Psychiatric exam: Present: normal affect, normal mood Skin exam: Present: warm, dry, intact. Absent: cyanosis, diaphoretic Course Vital Signs 06/02/18 06/02/18 14:31 15:25 Temperature 97.8 F Pulse Rate 109 H 97 Respiratory 24 16 Rate Blood Pressure 139/91 133/98 O2 Sat by Pulse 97 95 Oximetry EKG Findings - EKG Comments: EKG Findings:: EKG: Sinus tachycardia, rate of 103, ID interval 126, QRS duration 90, QTC 484 no signs of acute ischemia Procedures - Chest Tube Insertion Consent Obtained: verbal consent Time Out Performed: Yes Side of Procedure: right Indication: Pneumothorax Placed on monitor/pulse oximetry: Yes Site Prep: Chloroprep Local Anesthesia: Lidocaine 1% Insertion Site: Other (Second intercostal space, mid axillary line) Scalpel: #11 Open into Pleural Space Using: Hemostats Tube Size (Georgian): Other (Thoravent) Returns: Air Sutured in Place: No Attached to Suction: No Repeat X-ray Results: Lung Inflated Patient Tolerated Procedure: well Medical Decision Making - Medical Decision Making 27-year-old male presenting with suspected collapsed lung. Exam patient is poor air entry on the left. Stat 1 view chest is obtained, shows of pneumothorax, this is interpreted as proximally 35%. No effusion or suspicion for hemorrhage. Chest tube was placed with near complete inflation of lung. Patient is a very poor historian and clinically intoxicated. His alcohol level was quite high. I'm certain the patient cannot understand the care for his chest tube. He is stating that he is ready to go swimming. He is somewhat incoherent. He will be placed in observation, awaiting sobriety. Cardiothoracic surgery who may have a relationship with this patient as he was scheduled on an outpatient setting will be placed on consult. Patient noted to internal medicine. - Lab Data Result diagrams: 06/02/18 14:49 06/02/18 14:49 Lab Results 06/02/18 06/02/18 06/02/18 Range/Units 14:49 14:49 14:49 WBC 7.5 (3.8-10.6) k/uL RBC 5.17 (4.30-5.90) m/uL Hgb 16.1 (13.0-17.5) gm/dL Hct 46.6 (39.0-53.0) % MCV 90.3 (80.0-100.0) fL MCH 31.1 (25.0-35.0) pg MCHC 34.5 (31.0-37.0) g/dL RDW 13.2 (11.5-15.5) % Plt Count 291 (150-450) k/uL Neutrophils % 45 % Lymphocytes % 40 % Monocytes % 5 % Eosinophils % 6 % Basophils % 1 % Neutrophils # 3.3 (1.3-7.7) k/uL Lymphocytes # 3.0 (1.0-4.8) k/uL Monocytes # 0.4 (0-1.0) k/uL Eosinophils # 0.5 (0-0.7) k/uL Basophils # 0.0 (0-0.2) k/uL PT 9.9 (9.0-12.0) sec INR 1.0 (<1.2) APTT 22.4 (22.0-30.0) sec Sodium 145 (137-145) mmol/L Potassium 4.5 (3.5-5.1) mmol/L Chloride 107 (98-107) mmol/L Carbon Dioxide 21 L (22-30) mmol/L Anion Gap 17 mmol/L BUN 9 (9-20) mg/dL Creatinine 0.75 (0.66-1.25) mg/dL Est GFR (CKD-EPI)AfAm >90 (>60 ml/min/1.73 sqM) Est GFR (CKD-EPI)NonAf >90 (>60 ml/min/1.73 sqM) Glucose 98 (74-99) mg/dL Calcium 9.6 (8.4-10.2) mg/dL Total Bilirubin 0.6 (0.2-1.3) mg/dL AST 54 (17-59) U/L ALT 49 (21-72) U/L Alkaline Phosphatase 87 (38-126) U/L Total Protein 7.6 (6.3-8.2) g/dL Albumin 5.0 (3.5-5.0) g/dL Serum Alcohol 373 mg/dL Disposition Clinical Impression: Pneumothorax, left Disposition: ADMITTED IP TO THIS HOSP Condition: Stable Is patient prescribed a controlled substance at d/c from ED?: No Referrals: Sarah Guadarrama MD [Primary Care Provider] - 1-2 days Decision to Admit Reason: Admit from EC Decision Date: 06/02/18 Decision Time: 16:16
[2018-06-02 14:59] LABS: Basophils % (A) 1 %; Eosinophils # (A) 0.5 k/uL (0-0.7); Eosinophils % (A) 6 %; HCT 46.6 % (39.0-53.0); HGB 16.1 gm/dL (13.0-17.5); Lymphocytes % (A) 40 %; MCH 31.1 pg (25.0-35.0); MCHC 34.5 g/dL (31.0-37.0); MCV 90.3 fL (80.0-100.0); Mean Platelet Volume 7.2; Monocytes # (A) 0.4 k/uL (0-1.0); Monocytes % (A) 5 %; Neutrophils # (A) 3.3 k/uL (1.3-7.7); Neutrophils % (A) 45 %; Platelet Count 291 k/uL (150-450); RBC 5.17 m/uL (4.30-5.90); RDW 13.2 % (11.5-15.5); WBC 7.5 k/uL (3.8-10.6)
--- NOTE | 2018-06-02 14:59 | XR ---
EXAMINATION TYPE: XR chest 1V portable DATE OF EXAM: 06/02/2018 Comparison: 05/08/2018 Clinical History: 27-year-old male with shortness of breath and chest pain Findings: Heart normal size. Aorta within normal limits. There is enlarging left apical pneumothorax as compare d to prior exam. This now extends to the peripheral left base. The apical component measures up to 4. 0 cm versus 1.5 cm, previously. The mid lateral component is new measuring 1 cm and the lateral basil ar component is also new at 4 mm. Some hazy left basilar density probably represents atelectasis. Impression: Enlarging left-sided pneumothorax, now moderate in size extending down to the left base estimated at 35%.
[2018-06-02 15:09] LABS: ALT 49 U/L (21-72); AST 54 U/L (17-59); Alkaline Phosphatase 87 U/L (38-126); Anion Gap 17 mmol/L; Blood Urea Nitrogen 9 mg/dL (9-20); Calcium 9.6 mg/dL (8.4-10.2); Carbon Dioxide 21 mmol/L (22-30); Chloride 107 mmol/L (98-107); Glucose 98 mg/dL (74-99); Potassium 4.5 mmol/L (3.5-5.1); Sodium 145 mmol/L (137-145); Total Bilirubin 0.6 mg/dL (0.2-1.3); Total Protein 7.6 g/dL (6.3-8.2)
[2018-06-02] MEDS ORDERED: MORPHINE SULFATE 4 MG/ML SYRINGE IVP STA (15:16)
[2018-06-02] MEDS ORDERED: SODIUM CHLORIDE 0.9% 1,000 ML IV ONE (15:17)
[2018-06-02 15:18] LABS: Alcohol 373 mg/dL
[2018-06-02 15:20] LABS: Partial Thromboplastin Time 22.4 sec (22.0-30.0); Prothrombin Time 9.9 sec (9.0-12.0)
--- NOTE | 2018-06-02 16:03 | XR ---
EXAMINATION TYPE: XR chest 2V DATE OF EXAM: 06/02/2018 COMPARISON: Prior chest x-ray 06/02/2018 HISTORY: Status post chest tube placement TECHNIQUE: Frontal and lateral views of the chest are obtained. FINDINGS: Interval placement of a pleural drainage catheter on the left courses laterally. There is i nterval reduction in patient's pneumothorax. Some minimal atelectatic change is present. No evident p leural effusion. IMPRESSION: Interval chest tube placement and near complete resolution of left pneumothorax.
[2018-06-02] MEDS ORDERED: NALOXONE 0.4 MG/ML 1 ML VIAL IV PRN (16:10)
[2018-06-02] MEDS ORDERED: ACETAMINOPHEN TAB 325 MG TAB PO PRN (16:10)
--- NOTE | 2018-06-02 16:57 | P.HPIM ---
History of Present Illness Chief Complaint: Shortness of breath 27 yo male no significant PMHx admitted for management of left sided pneumothorax. Current history is limited as the patient is intoxicated. Approximately 2-3 weeks ago he sustained a fall. Not sure if he was drunk then. Denied any LOC at that time. In ED diagnosed with pneumothorax and after given option of chest tube or watchful waiting he opted to proceed without CP. Over the last few days he developed SOB and left sided CP with pleuritic features. Since it was worsening he came back to ED. CXR showed left sided pneumothorac about 35%. ED physician placed chest tube. Repeat CXR showed near complete resolution of pnumothorax. Pt states pain and SOB better. His NINFA was 373. He is awake but not providing much history about alcohol intake. Review of Systems Constitutional: Denies anorexia, Denies chills, Denies chronic pain, Denies fatigue, Denies fever, Denies lethargy Ears, nose, mouth and throat: Denies dysphagia, Denies headache Cardiovascular: Reports chest pain, Reports dyspnea on exertion, Reports shortness of breath, Denies edema, Denies lightheadedness, Denies orthopnea, Denies palpitations Gastrointestinal: Denies abdominal pain, Denies bloating, Denies change in bowel habits, Denies diarrhea, Denies heartburn, Denies jaundice Genitourinary: Denies discharge, Denies dysuria, Denies flank pain Musculoskeletal: Denies arm numbness/tingling, Denies frequent falls, Denies gait dysfunction, Denies hot joints, Denies leg numbness/tingling, Denies limitation of motion, Denies low back pain, Denies shooting arm pain, Denies shooting leg pain Integumentary: Denies pruritus, Denies rash, Denies sores, Denies unusual bruising Neurological: Denies balance difficulties, Denies burning pain, Denies confusion , Denies double vision, Denies head injury, Denies headaches, Denies syncope Psychiatric: Denies anxiety, Denies depression Endocrine: Denies cold intolerance, Denies heat intolerance Past Medical History Past Medical History: No Reported History Additional Past Medical History / Comment(s): Patient reports one seizure with no treatment or known cause History of Any Multi-Drug Resistant Organisms: None Reported Past Surgical History: No Surgical Hx Reported Additional Past Surgical History / Comment(s): hydrocele, rt shoulder sx, inguinal hernia repair as infant(not sure which side) Past Anesthesia/Blood Transfusion Reactions: No Reported Reaction Past Psychological History: No Psychological Hx Reported Smoking Status: Current every day smoker Past Alcohol Use History: Occasional Past Drug Use History: Marijuana - Past Family History Mother Family Medical History: No Reported History Father Family Medical History: Cancer, Prostate Disorder Additional Family Medical History / Comment(s): prostate cancer Medications and Allergies Home Medications Medication Instructions Recorded Confirmed Type No Known Home Medications 06/02/18 06/02/18 History Allergies Allergy/AdvReac Type Severity Reaction Status Date / Time No Known Allergies Allergy Verified 06/02/18 15:48 Physical Exam Vitals: Vital Signs Temp Pulse Resp BP Pulse Ox 06/02/18 16:00 86 16 136/91 98 06/02/18 15:25 97 16 133/98 95 06/02/18 14:31 97.8 F 109 H 24 139/91 97 Intake and Output 06/02/18 06/02/18 06/02/18 06:59 14:59 22:59 Other: Weight 81.647 kg - Constitutional General appearance: average body habitus, cooperative, no acute distress - EENT Eyes: anicteric sclerae, EOMI, PERRLA, normal appearance - Neck Neck: no lymphadenopathy, normal ROM, no rigidity, no stridor, no thyromegaly - Respiratory Respiratory: bilateral: CTA, negative: diminished, dullness, rales, rhonchi, wheezing - Cardiovascular Rhythm: regular Heart sounds: normal: S1, S2 - Gastrointestinal General gastrointestinal: no distended, normal bowel sounds, no organomegaly, no rigid, soft, no tenderness - Integumentary Integumentary: no cyanotic, normal - Neurologic Neurologic: CNII-XII intact - Psychiatric Psychiatric: A&O x's 3 Results CBC & Chem 7: 06/02/18 14:49 06/02/18 14:49 Labs: Abnormal Lab Results - Last 24 Hours (Table) 06/02/18 Range/Units 14:49 Carbon Dioxide 21 L (22-30) mmol/L Chest x-ray: image reviewed Thrombosis Risk Factor Assmnt - DVT/VTE Prophylaxis DVT/VTE Prophylaxis: Mechanical Prophylaxis ordered Assessment and Plan Plan: 1. Left sided pnumothorax s/p chest tube pain ontrol CTS consult 2. Acute alcohol intoxication denies alcohol abuse rehydrate monitor and discharge planning when clinically sober
[2018-06-02] MEDS: HYDROcodone/APAP 5-325MG 1 EACH TAB PO PRN ×2 (18:37→22:34)
[2018-06-02] MEDS: IBUPROFEN 400 MG TAB PO PRN (20:15)
[2018-06-03] MEDS: HYDROcodone/APAP 5-325MG 1 EACH TAB PO PRN ×5 (04:51→22:45)
[2018-06-03] MEDS: ONDANSETRON 4 MG/2 ML VIAL IVP PRN ×2 (08:58→18:43)
[2018-06-03] MEDS: IBUPROFEN 400 MG TAB PO PRN (11:40)
--- NOTE | 2018-06-03 12:45 | P.GSCN ---
History of Present Illness Consult date: 06/03/18 Reason for Consult: Left-sided pneumothorax, status post thoravent placement, management. Requesting physician: Herve Morris History of present illness: This is an 27-year-old gentleman well-known to our service. He follows on an outpatient basis with Dr. Guadarrama. He has a previous medical history of pack a day tobacco dependence, marijuana use, and alcohol use. We saw him back in March when he presented to [facility] emergency room with complaints of shortness of breath and left-sided chest pain, which was increased with deep inspiration after a fall down the stairs. At that time he was diagnosed with a 20% left-sided pneumothorax and left-sided rib fractures. He was stable and conservative treatment was prescribed including high flow oxygen but no chest tube placement. He was discharged to home. He returned to see Dr. Guerra on May 08 as scheduled in the office with a pre-visit chest x-ray demonstrating continued resolution but not yet complete resolution of his left-sided pneumothorax, approximately 10%. At that time he was requesting more pain medication and was given prescription strength Motrin. He was to follow with Dr. Guerra in the office again with a previsit chest x-ray last , May 29 but the patient did not show. When asked why he was not at his office visit he stated he did not feel well. He presented to [facility] emergency room yesterday with complaints of increased shortness of breath and left-sided chest pain. This time he was inebriated with an alcohol level 373. Chest x-ray was completed which did demonstrate left-sided pneumothorax increased from his previous visit, thoravent was placed by the emergency room physicians with almost complete resolution of his left-sided pneumothorax. Consult was placed for Dr. Guerra for management of the thoravent and continued left-sided pneumothorax. Review of Systems Review of systems was completed and was negative except as noted. - Respiratory Reports dyspnea, Reports pain, Reports pain on inspiration Past Medical History Past Medical History: No Reported History Additional Past Medical History / Comment(s): Patient reports one seizure with no treatment or known cause, 04-23-2018 fx ribs 9-12 on let/pneumo -no chest tube required at time of admit. History of Any Multi-Drug Resistant Organisms: None Reported Past Surgical History: No Surgical Hx Reported Additional Past Surgical History / Comment(s): chest tube placed 06-02-18 for pneumothorax. hydrocele, rt shoulder sx, inguinal hernia repair as infant(not sure which side) Past Anesthesia/Blood Transfusion Reactions: No Reported Reaction Past Psychological History: No Psychological Hx Reported Smoking Status: Current every day smoker Past Alcohol Use History: Occasional Past Drug Use History: Marijuana - Past Family History Mother Family Medical History: No Reported History Father Family Medical History: Cancer, Prostate Disorder Additional Family Medical History / Comment(s): prostate cancer Medications and Allergies Home Medications Medication Instructions Recorded Confirmed Type No Known Home Medications 06/02/18 06/02/18 History Allergies Allergy/AdvReac Type Severity Reaction Status Date / Time No Known Allergies Allergy Verified 06/02/18 15:48 Surgical - Exam Vital Signs Temp Pulse Resp BP Pulse Ox 97.8 F 109 H 24 139/91 97 06/02/18 14:31 06/02/18 14:31 06/02/18 14:31 06/02/18 14:31 06/02/18 14:31 - General well developed, well nourished, no distress, moderate pain - Eyes PERRL, normal ocular movement - ENT no hearing loss - Neck no masses, no bruits, trachea midline - Respiratory Lungs sounds diminished bilaterally. Respirations even, nonlabored. Currently on room air infection saturation 96%. Left-sided thoravent present, there is upper fluctuation of the right diaphragm with coughing but no fluctuation or movement of the internal membrane. - Cardiovascular S1, S2 present. Regular rate and rhythm. Palpable peripheral pulses bilaterally. No edema present. No calf pain or tenderness noted. - Abdomen Abdomen: soft, non tender, bowel sounds - Genitourinary Deferred - Rectum Deferred - Integumentary no rash, no growths - Neurologic normal coordination, normal sensation - Musculoskeletal normal gait - Psychiatric oriented to time, oriented to person, oriented to place, speech is normal, memory intact Results - Labs 06/02/18 14:49 06/02/18 14:49 Abnormal Lab Results - Last 24 Hours (Table) 06/02/18 Range/Units 14:49 Carbon Dioxide 21 L (22-30) mmol/L Diabetes panel 06/02/18 Range/Units 14:49 Sodium 145 (137-145) mmol/L Potassium 4.5 (3.5-5.1) mmol/L Chloride 107 (98-107) mmol/L Carbon Dioxide 21 L (22-30) mmol/L BUN 9 (9-20) mg/dL Creatinine 0.75 (0.66-1.25) mg/dL Glucose 98 (74-99) mg/dL Calcium 9.6 (8.4-10.2) mg/dL AST 54 (17-59) U/L ALT 49 (21-72) U/L Alkaline Phosphatase 87 (38-126) U/L Total Protein 7.6 (6.3-8.2) g/dL Albumin 5.0 (3.5-5.0) g/dL Calcium panel 06/02/18 Range/Units 14:49 Calcium 9.6 (8.4-10.2) mg/dL Albumin 5.0 (3.5-5.0) g/dL Pituitary panel 06/02/18 Range/Units 14:49 Sodium 145 (137-145) mmol/L Potassium 4.5 (3.5-5.1) mmol/L Chloride 107 (98-107) mmol/L Carbon Dioxide 21 L (22-30) mmol/L BUN 9 (9-20) mg/dL Creatinine 0.75 (0.66-1.25) mg/dL Glucose 98 (74-99) mg/dL Calcium 9.6 (8.4-10.2) mg/dL Adrenal panel 06/02/18 Range/Units 14:49 Sodium 145 (137-145) mmol/L Potassium 4.5 (3.5-5.1) mmol/L Chloride 107 (98-107) mmol/L Carbon Dioxide 21 L (22-30) mmol/L BUN 9 (9-20) mg/dL Creatinine 0.75 (0.66-1.25) mg/dL Glucose 98 (74-99) mg/dL Calcium 9.6 (8.4-10.2) mg/dL Total Bilirubin 0.6 (0.2-1.3) mg/dL AST 54 (17-59) U/L ALT 49 (21-72) U/L Alkaline Phosphatase 87 (38-126) U/L Total Protein 7.6 (6.3-8.2) g/dL Albumin 5.0 (3.5-5.0) g/dL - Imaging Chest x-ray: report reviewed, image reviewed Assessment and Plan (1) Alcohol use Current Visit: Yes Status: Chronic Code(s): Z78.9 - OTHER SPECIFIED HEALTH STATUS SNOMED Code(s): 820009960 (2) Pneumothorax, left Current Visit: Yes Status: Chronic Code(s): J93.9 - PNEUMOTHORAX, UNSPECIFIED SNOMED Code(s): 980267531 (3) Smoker Current Visit: Yes Status: Chronic Code(s): F17.200 - NICOTINE DEPENDENCE, UNSPECIFIED, UNCOMPLICATED SNOMED Code(s): 24673030 (4) Marijuana use Current Visit: Yes Status: Chronic Code(s): F12.90 - CANNABIS USE, UNSPECIFIED, UNCOMPLICATED SNOMED Code(s): 443134135 Plan: The patient was seen and examined at the bedside. Chart/diagnostics were reviewed. Will discuss the case in detail with Dr. Gordon who is here today from cardiothoracic surgery. At this time we will continue to monitor the thoravent for complete resolution of his pneumothorax and no air leak. We will remove the thoravent when able. Incentive spirometry ordered, patient should be encouraged to use it 10 times every hour while awake. Smoking cessation strongly encouraged. Pain control per primary care service. More recommendations to follow. Thank you for this consult. We look for to working with you in the care of your patient. Time with Patient: Greater than 30
--- NOTE | 2018-06-03 13:54 | XR ---
EXAMINATION TYPE: XR chest 2V DATE OF EXAM: 06/03/2018 COMPARISON: Prior chest x-ray 06/02/2018 HISTORY: Chest tube TECHNIQUE: Frontal and lateral views of the chest are obtained. FINDINGS: No significant change. IMPRESSION: Indwelling chest tube is stable, no sizable pneumothorax. Suspect some minimal basilar a telectasis.
[2018-06-03] MEDS: KETOROLAC 30 MG/ML 1 ML VIAL IVP SCH (17:21)
[2018-06-04] MEDS: KETOROLAC 30 MG/ML 1 ML VIAL IVP SCH ×3 (00:09→11:39)
[2018-06-04] MEDS: HYDROcodone/APAP 5-325MG 1 EACH TAB PO PRN ×3 (06:36→15:48)
--- NOTE | 2018-06-04 07:51 | XR ---
EXAMINATION TYPE: XR chest 2V DATE OF EXAM: 06/04/2018 COMPARISON: 06/03/2018 HISTORY: 27-year-old male follow-up pneumothorax TECHNIQUE: Frontal and lateral views FINDINGS: The cardiomediastinal silhouette, aorta, and pulmonary vasculature are within normal limits. Left-man ed Thoravent device redemonstrated. The catheter appears to enter the anterior first intercostal spac e. No appreciable pneumothorax. Some minimal strandy atelectasis at the left base. No pleural effusio n. IMPRESSION: Left-sided pleural catheter remains in place. No appreciable pneumothorax.
--- NOTE | 2018-06-04 10:51 | P.PN ---
Subjective Progress Note Date: 06/04/18 Principal diagnosis: Left-sided pneumothorax, status post Thora-Vent placement. Previous medical history of pack-a-day smoking dependence, marijuana use, alcohol use. The patient's currently sitting up in bed in no acute distress. Does complain of continued left chest wall discomfort. Denies shortness of breath. He did get sleep last night, no new concerns. Objective - Vital Signs Vital signs: Vital Signs Temp 97.4 F L 06/04/18 06:24 Pulse 75 06/04/18 06:24 Resp 18 06/04/18 07:21 BP 142/98 06/04/18 06:24 Pulse Ox 98 06/04/18 06:24 Intake & Output 06/03/18 06/04/18 06/04/18 18:59 06:59 18:59 Intake Total 600 Balance 600 Intake: Oral 600 Other: Voiding Method Toilet # Voids 2 2 - Constitutional General appearance: Present: cooperative, no acute distress - Respiratory Details: Lungs sounds clear bilaterally. Respirations even, nonlabored. Currently on room air with oxygen saturation 98%. Able to achieve 3500 mL on his incentive spirometry. Left-sided thoravent present, no fluctuation in the right diaphragm or the membrane with coughing. - Cardiovascular Details: S1, S2 present. Regular rate and rhythm. Palpable peripheral pulses bilaterally. No edema present. No calf pain or tenderness noted. - Gastrointestinal Gastrointestinal Comment(s): Abdomen soft, nontender, nondistended. Active bowel sounds 4 quadrants. Tolerating diet. - Genitourinary Genitourinary Comment(s): Continues to void clear, yellow urine. - Integumentary Integumentary Comment(s): Skin is warm and dry with evidence of good perfusion. - Neurologic Neurologic: Present: CNII-XII intact - Musculoskeletal Musculoskeletal: Present: gait normal, strength equal bilaterally - Psychiatric Psychiatric: Present: A&O x's 3, appropriate affect, intact judgment & insight - Allied health notes Allied health notes reviewed: nursing - Labs CBC & Chem 7: 06/02/18 14:49 06/02/18 14:49 - Imaging and Cardiology Chest x-ray: report reviewed, image reviewed Assessment and Plan (1) Alcohol use Current Visit: Yes Status: Chronic Code(s): Z78.9 - OTHER SPECIFIED HEALTH STATUS SNOMED Code(s): 309555853 (2) Pneumothorax, left Current Visit: Yes Status: Chronic Code(s): J93.9 - PNEUMOTHORAX, UNSPECIFIED SNOMED Code(s): 090999924 (3) Smoker Current Visit: Yes Status: Chronic Code(s): F17.200 - NICOTINE DEPENDENCE, UNSPECIFIED, UNCOMPLICATED SNOMED Code(s): 46703850 (4) Marijuana use Current Visit: Yes Status: Chronic Code(s): F12.90 - CANNABIS USE, UNSPECIFIED, UNCOMPLICATED SNOMED Code(s): 108107867 Plan: 1. No pneumothorax evident on this morning's chest x-ray. No air leak present in thoravent. Occlusive cap applied to thoravent. 2. Will repeat chest x-ray later this afternoon. 3. Pain management per primary care service. 4. Encourage incentive spirometry 10 times every hour while awake. 5. Encourage smoking cessation. 6. More recommendations to follow. Time with Patient: Greater than 30
--- NOTE | 2018-06-04 14:36 | XR ---
EXAMINATION TYPE: XR chest 2V DATE OF EXAM: 06/04/2018 COMPARISON: 06/04/2018 earlier exam INDICATION: Pneumothorax TECHNIQUE: Frontal and lateral views of the chest are obtained. FINDINGS: The heart size is normal. The pulmonary vasculature is normal. The lungs are clear. No pneumothorax is evident. Left-sided chest tube is present. IMPRESSION: 1. No residual or recurrent pneumothorax. Left-sided chest tube remains in position.
[2018-06-04] MEDS: IBUPROFEN 400 MG TAB PO PRN (15:02)
--- NOTE | 2018-06-04 15:09 | P.PN ---
Subjective Feeling better. No SOB, pain better. No new complaints. CXR reviewed Objective - Vital Signs Vital signs: Vital Signs Temp 97 F L 06/03/18 15:30 Pulse 74 06/03/18 15:30 Resp 16 06/03/18 15:30 BP 136/94 06/03/18 15:30 Pulse Ox 97 06/03/18 15:30 Intake & Output 06/02/18 06/03/18 06/03/18 18:59 06:59 18:59 Intake Total 600 Balance 600 Weight 81.647 kg Intake: Oral 600 Other: # Voids 1 2 # Bowel Movements 0 - Constitutional General appearance: Present: cooperative. Absent: no acute distress - EENT Eyes: Present: PERRLA. Absent: anicteric sclerae, EOMI - Respiratory Respiratory: bilateral: CTA - Cardiovascular Rhythm: regular Heart sounds: normal: S1, S2 - Gastrointestinal General gastrointestinal: Present: normal bowel sounds, soft. Absent: organomegaly, tenderness - Psychiatric Psychiatric: Present: A&O x's 3 - Labs CBC & Chem 7: 06/02/18 14:49 06/02/18 14:49 Assessment and Plan Plan: 1. Left sided pneumothorax s/p thoravent tube CTS following paincontrol 2. Acute alcohol intoxication resolved no signes of withdrawals for now
--- NOTE | 2018-06-04 15:11 | P.PN ---
Subjective nonew events. Some discomfort over toravent tube but tolerable per patient. No SOB. No signs of withdrawalls, diaphoresis, nausea vomiting Objective - Vital Signs Vital signs: Vital Signs Temp 97.4 F L 06/04/18 06:24 Pulse 75 06/04/18 06:24 Resp 18 06/04/18 07:21 BP 142/98 06/04/18 06:24 Pulse Ox 98 06/04/18 06:24 Intake & Output 06/03/18 06/04/18 06/04/18 18:59 06:59 18:59 Intake Total 600 Balance 600 Intake: Oral 600 Other: Voiding Method Toilet # Voids 2 2 - Constitutional General appearance: Present: cooperative, no acute distress - EENT Eyes: Present: EOMI, PERRLA - Respiratory Respiratory: bilateral: CTA - Cardiovascular Rhythm: regular Heart sounds: normal: S1, S2 - Gastrointestinal General gastrointestinal: Present: normal bowel sounds, soft. Absent: tenderness - Labs CBC & Chem 7: 06/02/18 14:49 06/02/18 14:49 Assessment and Plan Plan: 1. Left sided pneumothorax s/p thoravent tube CTS following paincontrol 2. Acute alcohol intoxication resolved no signes of withdrawals for now Dc home once cleard by CTS
[2018-06-04 15:17] VITALS: BP 116/77; PULSE 72; RESP 16; TEMP 96.7
--- NOTE | 2018-06-04 16:03 | P.DS ---
Providers Date of admission: 06/02/18 16:10 Attending physician: Ezekiel Liu MD Consults: 06/02/18 16:10 Consult Physician Routine Consulting Provider: Meet Guerra Consult Reason/Comments: Pneumothorax Do you want consulting provider notified?: Yes Primary care physician: Sarah Guadarrama MD - Discharge Diagnosis(es) (1) Pneumothorax, left Patient presented with worsening shortness and left-sided chest pain. Chest x- ray confirmed left-sided pneumothorax 35%. He underwent torment chest tube insertion emergency department. He was then admitted with pain control and with consultation per cardiothoracic surgery. Cardiothoracic surgery evaluated the patient. Once it was determined that he is condition is stable to pneumothorax resolved on chest x-ray torment to was and patient observed clinically. He continued to be stable without any significant shortness of breath or chest. Follow-up chest x-ray was then obtained showing no pneumothorax. Thyroid chest tube was discontinued the patient found to be stable for discharge by thoracic surgery. He is just instructed to follow-up with cardiothoracic surgery in the office on 06/19/2018 and to obtain chest x-ray prior this visit. Current Visit: Yes Status: Acute Priority: High (2) Alcohol use Patient presented with acute alcohol intoxication and alcohol level of 350. Subsequently he did well without any signs of withdrawal. was advised to avoid alcohol Current Visit: Yes Status: Chronic Priority: Medium Hospital Course: Reason for admission left-sided chest pain shortness of breath Admission diagnosis left-sided pneumothorax Discharge diagnosis left-sided pneumothorax status post toravent tube. Pertinent Studies: Chest x-ray initially admission showing left-sided pneumothorax 35% Chest x-ray post tube insertion showing resolution pneumothorax Chest x-ray post capping chest tube showing resolution of pneumothorax Procedures: Thoravent tube insertion for left side pneumothorax and removal Patient Condition at Discharge: Good Plan - Discharge Summary Discharge Rx Participant: No New Discharge Prescriptions: New Acetaminophen Tab [Tylenol] 650 mg PO Q6HR PRN tab PRN Reason: Mild Pain Or Fever > 100.5 Discharge Medication List Acetaminophen Tab [Tylenol] 650 mg PO Q6HR PRN tab 06/04/18 [Rx] Ambulatory/Diagnostic Orders: XR chest 2V [RAD.AMB] Time Frame: 06/19/18, Facility: [facility], Location: [facility] Activity/Diet/Wound Care/Special Instructions: Please have chest xray completed at the hospital before your appointment with Dr. Guerra Discharge Disposition: HOME SELF-CARE
== END 2018-06-04 16:26 | disposition home or self-care (01) | DRG 200 ==
LOC: EC 14:13 → 4MS4W 16:10
PROVIDERS: ADMIT Hospitalist; ATTEND Hospitalist
PROC: 0W9B30Z Drainage of Left Pleural Cavity with Drainage Device, Percutaneous Approach (ICD-10-PCS; principal; 2018-06-02)
DX: J93.9 Pneumothorax, unspecified (principal); S22.42XA Multiple fractures of ribs, left side, initial encounter for closed fracture; F10.129 Alcohol abuse with intoxication, unspecified; Y90.8 Blood alcohol level of 240 mg/100 ml or more; F17.200 Nicotine dependence, unspecified, uncomplicated; Z71.6 Tobacco abuse counseling; Z86.69 Personal history of other diseases of the nervous system and sense organs; Z80.42 Family history of malignant neoplasm of prostate
CPT/HCPCS: 32551; 36415; 71045; 71046; 80053; 80320; 85025; 85610; 85730; 93005; 96361; 96374; 96375; 99285

== ENCOUNTER 2018-06-14 16:04 | Inpatient (IN) | payer OTHER ==
--- NOTE | 2018-06-14 16:34 | XR ---
EXAMINATION TYPE: XR chest 2V DATE OF EXAM: 06/14/2018 COMPARISON: Difficulty breathing history of broken ribs several weeks ago requiring chest tube. HISTORY: Chest x-ray from 10 days ago TECHNIQUE: Frontal and lateral views of the chest are obtained. FINDINGS: There is recurrent fairly moderate to large size left-sided pneumothorax estimated 35-40%. Left hilar area and basilar opacity likely reflects associated atelectasis. There is small pleural fluid component in the left lung base. Right lung remains clear. No definitive mediastinal shift is n oted. The cardiac silhouette size is within normal limits. Left-sided rib fractures are not well seen on plain films versus recent CT. IMPRESSION: Recurrent moderate to large size left-sided pneumothorax without distinct mediastinal sh ift. Small basilar pleural fluid or possible hemothorax. Results communicated to ordering ER physician via telephone at time of dictation.
[2018-06-14] MEDS ORDERED: LIDOCAINE 1%-EPI 1:100,000 30 ML VIAL SQ STA (16:40)
[2018-06-14] MEDS ORDERED: MORPHINE SULFATE 4 MG/ML SYRINGE IM STA (16:45)
[2018-06-14] MEDS ORDERED: MORPHINE SULFATE 4 MG/ML SYRINGE IVP STA ×2 (16:46→17:52)
[2018-06-14] MEDS ORDERED: MIDAZOLAM 2 MG/2 ML VIAL IV ONE (17:22)
--- NOTE | 2018-06-14 17:55 | XR ---
EXAMINATION TYPE: XR chest w obliques DATE OF EXAM: 06/14/2018 COMPARISON: Chest x-ray earlier today. HISTORY: Chest tube placement for left-sided pneumothorax TECHNIQUE: AP portable frontal upright and oblique frontal views of the chest are obtained as request ed. FINDINGS: Overlying anterior chest tube is now identified extending superiorly. There is fairly stabl e moderate to large size pneumothorax despite chest tube placement. There is small left pleural fluid component or hemothorax redemonstrated. No mediastinal shift is seen. The cardiac silhouette size is within normal limits. Left-sided rib fractures are less well seen on plain films.. IMPRESSION: Fairly stable moderate to large size left pneumothorax despite chest tube placement.
--- NOTE | 2018-06-14 17:56 | XR ---
EXAMINATION TYPE: XR chest 2V DATE OF EXAM: 06/14/2018 COMPARISON: Chest x-rays earlier today. HISTORY: Chest tube placement. TECHNIQUE: Frontal and lateral views of the chest are obtained. FINDINGS: There is redemonstration of apical positioning left-sided anterior chest tube. Marked impr ovement in left-sided pneumothorax is noted. There is persistent small left pleural effusion or pneum othorax with associated left basilar atelectasis. Right lung remains clear. No mediastinal shift is seen. The cardiac silhouette size is within normal limits. The osseous structures are intact. IMPRESSION: Marked improvement in left-sided pneumothorax on current study. No residual apical or la teral pneumothorax identified.
[2018-06-14] MEDS ORDERED: NALOXONE 0.4 MG/ML 1 ML VIAL IV PRN (18:47)
--- NOTE | 2018-06-14 18:47 | ED ---
General Adult HPI - General Chief complaint: Shortness of Breath Stated complaint: LISETTE Time Seen by Provider: 06/14/18 16:37 Source: patient Mode of arrival: ambulatory Limitations: no limitations - History of Present Illness Initial comments: Dictation was produced using [id number] dictation software. please excuse any grammatical, word or spelling errors. Chief Complaint: 27-year-old male with past medical history of pneumothoraces presents with shortness of breath. History of Present Illness: Patient is a 27-year-old male presents with 4 days of shortness of breath. Last month he suffered a fall which medical record fractures and resultant back pneumothorax. Department place at that time. 4 days ago he had difficulty breathing. He is shortness breath has been increasingly worsening. Mother noted that he was in severe respiratory distress vital to the emergency department. Chart review shows that patient did have a dramatic pneumothorax last month. He was evaluated by cardiothoracic surgery. During that admission the remove the chest tube after resolution of pneumothorax. He was observed discharge. Patient has been relatively a symptomatically until about 4 days ago. States that he's been coughing more than usual recently. The ROS documented in this emergency department record has been reviewed and confirmed by me. Those systems with pertinent positive or negative responses have been documented in the HPI. All other systems are other negative and/or noncontributory. - Related Data Home Medications Medication Instructions Recorded Confirmed No Known Home Medications 06/14/18 06/14/18 Allergies Allergy/AdvReac Type Severity Reaction Status Date / Time No Known Allergies Allergy Verified 06/14/18 16:52 Review of Systems ROS Statement: Those systems with pertinent positive or pertinent negative responses have been documented in the HPI. ROS Other: All systems not noted in ROS Statement are negative. Past Medical History Past Medical History: No Reported History Additional Past Medical History / Comment(s): Patient reports one seizure with no treatment or known cause, 04-23-2018 fx ribs 9-12 on let/pneumo -no chest tube required at time of admit. History of Any Multi-Drug Resistant Organisms: None Reported Past Surgical History: No Surgical Hx Reported Additional Past Surgical History / Comment(s): chest tube placed 06-02-18 for pneumothorax. hydrocele, rt shoulder sx, inguinal hernia repair as (not sure which side) Past Anesthesia/Blood Transfusion Reactions: No Reported Reaction Past Psychological History: No Psychological Hx Reported Smoking Status: Current every day smoker Past Alcohol Use History: Occasional Past Drug Use History: Marijuana - Past Family History Mother Family Medical History: No Reported History Father Family Medical History: Cancer, Prostate Disorder Additional Family Medical History / Comment(s): prostate cancer General Exam - General Exam Comments Initial Comments: PHYSICAL EXAM: General Impression: Alert and oriented x3, acute respiratory distress HEENT: Normocephalic atraumatic, extra-ocular movements intact, pupils equal and reactive to light bilaterally, mucous membranes moist. Cardiovascular: Heart regular rate and rhythm, S1&S2 audible, no murmurs, rubs or gallops Chest: Diminished lung sounds on the left Abdomen: Bowel sounds present, abdomen soft, non-tender, non-distended, no organomegaly Musculoskeletal: Pulses present and equal in all extremities, no peripheral edema Motor: Power 5/5 bilaterally, no focal deficits noted Neurological: CN II-XII grossly intact, no focal motor or sensory deficits noted Skin: Intact with no visualized rashes Psych: Normal affect and mood Limitations: no limitations Course Vital Signs 06/14/18 06/14/18 16:05 17:38 Temperature 98.2 F Pulse Rate 100 93 Respiratory 20 18 Rate Blood Pressure 136/57 135/90 O2 Sat by Pulse 98 100 Oximetry Medical Decision Making - Medical Decision Making ED course: 27-year-old male presents with recurrent pneumothoraces. Vital signs upon arrival shows findings within acceptable limits. However he is found to have labored breathing. Initial x-ray was ordered by self ER physician showing large left-sided pneumothorax. Patient in eat immediately placed on nonrebreather. Consent was obtained for thoravent placement. Post procedure x-ray was obtained. Patient connected to [place] apparatus on 20 suction. Repeat chest x-ray shows improvement of pneumothoraces. Patient found to be in stable condition. Patient to be admitted to [facility] with cardiothoracic surgery on consult. See maintain on -20 suction for the time being. Disposition Clinical Impression: Pneumothorax Disposition: ADMITTED IP TO THIS HOSP Referrals: Sarah Guadarrama MD [Primary Care Provider] - 1-2 days Time of Disposition: 18:47
[2018-06-14] MEDS ORDERED: ACETAMINOPHEN TAB 325 MG TAB PO PRN (20:50)
[2018-06-14] MEDS: DOCUSATE 100 MG CAP PO PRN (21:00)
[2018-06-14] MEDS: HYDROcodone/APAP 5-325MG 1 EACH TAB PO PRN (21:00)
--- NOTE | 2018-06-14 21:17 | P.HPIM ---
History of Present Illness Chief Complaint: Left chest pain shortness of breath left-sided pneumothorax This is a 27-year-old male known to our service from previous admission. He was admitted due to left-sided recurrent pneumothorax. About a month ago prior to this admission patient sustained a fall suspected in the alcoholic state. Subsequently he developed some chest pain on the left side shortness of breath and was initially diagnosed with left-sided pneumothorax was offered chest tube versus conservative management and he opts for conservative management and to follow-up in cardiothoracic surgery office. Apparently he never followed up and subsequently started developing more chest pain or shortness of breath and was admitted to our service recently with 35% pneumothorax. At that time he had thoravent chest tube placed with complete resolution of pneumothorax. At that time cardiothoracic surgery was following and after successful removal of the chest tube he was discharged home in stable condition. He was supposed to follow-up after that with cardiothoracic surgery in the office which apparently he never did. Over the last few days he starts developing more left-sided chest pain and shortness of breath. This time pain was more severe than usual with a previous episode and was also at the level of his diaphragm. Him to emergency department he was found to have quite a large pneumothorax on the left side at least much larger than the last. Chest tube was inserted little bit higher and had to be repositioned and connected to suction. Subsequently repeat chest x-ray show resolution of his pneumothorax. He currently has some mild pain and discomfort in the left side but much better and there is no any shortness of breath cough or expectoration. On the last admission his alcohol level was elevated. No blood work was done current admission. He states that he might have had a few beers today. He does not appear clinically intoxicated during the interview and he provides clear answers. Review of Systems REVIEW OF SYSTEMS: CONSTITUTIONAL: No fever or chills HEENT: No changes in vision or voice CARDIOVASCULAR: Pleuritic chest pain as described in HPI, no abnormal heart beats, or any swelling in ankles or feet. RESPIRATORY: Per HPI GASTROINTESTINAL: No abdominal pain, no nausea no vomiting no constipation or diarrhea GENITOURINARY: no any urinary urgency, frequency or burning, and there has been no blood in her urine. no flank pain. MUSCULOSKELETAL: She notes full range of motion of all her joints without pain or swelling. NEUROLOGICAL: , no headache. no vision changes, or fainting. No numbness or tingling. Past Medical History Past Medical History: No Reported History Additional Past Medical History / Comment(s): Patient reports one seizure with no treatment or known cause, 04-23-2018 fx ribs 9-12 on let/pneumo -no chest tube required at time of admit. History of Any Multi-Drug Resistant Organisms: None Reported Past Surgical History: No Surgical Hx Reported Additional Past Surgical History / Comment(s): chest tube placed 06-02-18 for pneumothorax. hydrocele, rt shoulder sx, inguinal hernia repair as infant(not sure which side) Past Anesthesia/Blood Transfusion Reactions: No Reported Reaction Past Psychological History: No Psychological Hx Reported Additional Psychological History / Comment(s): lives with his mom, not curently working. Smoking Status: Current every day smoker Past Alcohol Use History: Occasional Additional Past Alcohol Use History / Comment(s): started smoking at age 12 smokes <1 ppd. stated occ alcohol use- stated drank 3 mixed drinks w/vodka today. Past Drug Use History: Marijuana Additional Drug Use History / Comment(s): occ use of marijuana-used last approx 2 weeks ago - Past Family History Mother Family Medical History: No Reported History Father Family Medical History: Cancer, Prostate Disorder Additional Family Medical History / Comment(s): prostate cancer Medications and Allergies Home Medications Medication Instructions Recorded Confirmed Type No Known Home Medications 06/14/18 06/14/18 History Allergies Allergy/AdvReac Type Severity Reaction Status Date / Time No Known Allergies Allergy Verified 06/14/18 16:52 Physical Exam Vitals: Vital Signs Temp Pulse Pulse Resp BP BP Pulse Ox 06/14/18 20:00 87 20 06/14/18 19:44 98.8 F 78 20 145/93 100 06/14/18 19:18 97.8 F 90 22 128/78 99 06/14/18 17:38 93 18 135/90 100 06/14/18 16:05 98.2 F 100 20 136/57 98 Intake and Output 06/14/18 06/14/18 06/14/18 06:59 14:59 22:59 Intake Total 480 Balance 480 Intake: Oral 480 Other: Voiding Method Urinal # Voids 0 Weight 83.915 kg Vital Signs: I have reviewed the vital signs. GENERAL: Well-nourished, Well-developed , no apparent distress, cooperative Eyes: PERRL, extraoculry movements intact, clear conjunctiva Head: : Atraumatic external nose and ears, oropharyngeal mucosa is moist without lesions or exudates Neck: Symmetric, trachea midline, No thyromegaly, no masses or neck vain pulsation, no neck rigidity CVS: +S1/S2, No murmurs or gallops. Peripheral pulses 2+ and equal in all extremities. RESP: Unlabored respiratory effort. On the left side breath sounds symptoms diminished but again due to pain he's not able to take deep breaths. In the right side breath sounds are more apparent but again his deep breaths are quite limited Abdomen: Bowel sounds present in all 4 quadrants, Soft to palpation, Nontender/ Nondistended, No hepatosplenomegaly, no hernias or masses, no CVA tnderness Musculoskeletal: Extremities w/o deformity, No cyanosis or clubbing, no joint swelling Skin: Warm, Dry. No rashes or lesions Neuro: director of neurology II-XII grossly intact, motor strenght 5/5 i upper and lower extremities, no clonus, patellar DTRs 2+ and sympetrical Psych: Awake, Alert, & Oriented (AAO) x3 Appropriate mood and affect Results Abdominal x-ray: report reviewed Thrombosis Risk Factor Assmnt - Choose All That Apply Any of the Below Risk Factors Present?: No Assessment and Plan Plan: This is a 27-year-old male who presents with recurrent left-sided pneumothorax status post chest tube insertion emergency department. Continue supplemental oxygen Chest tube management as suction Pain control Cardiothoracic surgery consulted, patient might need pleurodesis and VATS Basic blood work and HIV testing He is a full code His mother is a surrogate decision maker 2 or more midnights stay is expected Time with Patient: Greater than 30
[2018-06-14] MEDS: MORPHINE SULFATE 4 MG/ML SYRINGE IV PRN (21:52)
[2018-06-15] MEDS: IBUPROFEN 400 MG TAB PO PRN ×2 (00:43→19:39)
[2018-06-15] MEDS: HYDROcodone/APAP 5-325MG 1 EACH TAB PO PRN ×4 (00:43→19:40)
[2018-06-15] MEDS: ONDANSETRON 4 MG/2 ML VIAL IVP PRN ×3 (00:44→16:52)
[2018-06-15] MEDS: MORPHINE SULFATE 4 MG/ML SYRINGE IV PRN ×4 (05:57→21:07)
--- NOTE | 2018-06-15 11:06 | P.GSCN ---
History of Present Illness Consult date: 06/15/18 Reason for Consult: Left pneumothorax Requesting physician: Enio Siddiqui History of present illness: This is a 27-year-old gentleman who is followed by Dr. Sarah Guadarrama on an outpatient basis. He is a past medical history significant for nicotine dependence, occasional marijuana use and alcohol use. In March 2018 the patient presented to the hospital here at [facility] after falling down 6 stairs landing on his left chest. He presented to the hospital at that time with complaints of pain and shortness of breath. A chest x-ray was completed during his hospital visit which demonstrated a small left apical pneumothorax of around 10%. Subsequently a computed tomography scan of his chest was completed which demonstrated rib fractures 9 through 11 and 12. He was subsequently discharged home with conservative treatment and monitoring. On 03/2018 the patient presented back to the emergency department here at [facility] with complaints of left-sided chest pain and dyspnea. Apparently on presentation he was clinically intoxicated and had an alcohol level of 373 mg/dL. Subsequently a chest x-ray was completed which showed a left-sided pneumothorax estimated around 35%. Subsequently a left-sided Thoravent was placed in the emergency department. The pneumothorax did resolve and the Thoravent was discontinued and he was discharged home. Yesterday 2017 the patient presented to the emergency department here at [facility] with complaints of shortness of breath which he states has been present for about 4-5 days. He is also complaining of left sided chest pain rating his pain 10 out of 10 on the pain scale. He denies any fever, syncope, or change in bowel or bladder function. He does report he did have an episode of nausea and vomiting 1 yesterday. Reports that his mother pressured him into coming into the emergency department due to his progressive respiratory distress and complaints of pain. A chest x-ray was completed in the emergency department which demonstrated a recurrent moderate to large size left pleural effusion of about 35-40%. A left chest Thoravent was placed in the emergency department and was placed to low continuous wall suction. Due to the patient's recurrent left pneumothorax a consult was placed to cardiothoracic surgery for further evaluation and treatment recommendations. Review of Systems A 14 point review of systems was completed and was negative except as mentioned in the HPI. Past Medical History Past Medical History: No Reported History Additional Past Medical History / Comment(s): Patient reports one seizure with no treatment or known cause, 04-23-2018 fx ribs 9-12 on let/pneumo -left chest Thoravent placed on 06/02/2018. History of Any Multi-Drug Resistant Organisms: None Reported Past Surgical History: No Surgical Hx Reported Additional Past Surgical History / Comment(s): Thoravent placed 06-02-18 for pneumothorax. hydrocele, rt shoulder sx, inguinal hernia repair as infant(not sure which side) Past Anesthesia/Blood Transfusion Reactions: No Reported Reaction Past Psychological History: No Psychological Hx Reported Additional Psychological History / Comment(s): lives with his mom, not curently working. Smoking Status: Current every day smoker Past Alcohol Use History: Occasional Additional Past Alcohol Use History / Comment(s): started smoking at age 12 smokes <1 ppd. stated occ alcohol use- states that he drinks vodka. Past Drug Use History: Marijuana Additional Drug Use History / Comment(s): Occasional use of marijuana - Past Family History Mother Family Medical History: No Reported History Father Family Medical History: Cancer, Prostate Disorder Additional Family Medical History / Comment(s): prostate cancer Medications and Allergies Home Medications Medication Instructions Recorded Confirmed Type No Known Home Medications 06/14/18 06/14/18 History Allergies Allergy/AdvReac Type Severity Reaction Status Date / Time No Known Allergies Allergy Verified 06/14/18 16:52 Surgical - Exam Vital Signs Temp Pulse Resp BP Pulse Ox 98.2 F 100 20 136/57 98 06/14/18 16:05 06/14/18 16:05 06/14/18 16:05 06/14/18 16:05 06/14/18 16:05 - General well developed, well nourished, no distress, moderate pain - Eyes PERRL, normal ocular movement - ENT normal pinna, normal nares, normal mucosa, no hearing loss, no congestion - Neck No lymphadenopathy, neck is supple. no masses, no bruits, trachea midline, no venous distension - Respiratory Lung sounds are essentially clear throughout, diminished to his left lower lobe. Respirations are symmetrical and nonlabored. No wheezes, rales or rhonchi. Left anterior chest Thoravent tube in place, no air leak present. Thoravent remains to low continuous wall suction -20 cm H2O. No drainage present. - Cardiovascular Regular rhythm and rate. S1 and S2 present, negative for history, gallop or murmur. Remote telemetry showing normal sinus rhythm heart rate 66. No edema present. - Abdomen Abdomen is soft, nontender nondistended. Active bowel sounds all 4 abdominal quadrants. No guarding or rigidity. No organomegaly. - Genitourinary Deferred - Rectum Deferred - Integumentary no rash, no growths, no abnormal pigmentation - Neurologic normal coordination, normal sensation - Musculoskeletal normal gait, normal posture - Psychiatric oriented to time, oriented to person, oriented to place, speech is normal, memory intact Results - Imaging Chest x-ray: report reviewed, image reviewed Assessment and Plan (1) Pneumothorax, left Current Visit: Yes Status: Acute Code(s): J93.9 - PNEUMOTHORAX, UNSPECIFIED SNOMED Code(s): 638959112 (2) Alcohol use Current Visit: No Status: Chronic Priority: Medium Code(s): Z78.9 - OTHER SPECIFIED HEALTH STATUS SNOMED Code(s): 872712377 (3) Marijuana use Current Visit: No Status: Chronic Code(s): F12.90 - CANNABIS USE, UNSPECIFIED, UNCOMPLICATED SNOMED Code(s): 344915000 (4) Tobacco dependence Current Visit: No Status: Chronic Code(s): F17.200 - NICOTINE DEPENDENCE, UNSPECIFIED, UNCOMPLICATED SNOMED Code(s): 46061710 Plan: Patient was seen and examined. Chart diagnostics were reviewed. His case was discussed with Dr. Duran from cardiothoracic surgery. We will leave his left Thoravent to low continuous wall suction for another 24 hours. If no air leak is present we will place his Thoravent to waterseal. Pain management per current when necessary orders. We will order incentive spirometry and encouraged to use every hour while awake. DVT and GI prophylaxis. Discussed the importance of smoking cessation. Thank you for this consult and we look for to working with you in the care of your patient. Time with Patient: Greater than 30
[2018-06-15 12:03] LABS: Basophils # (A) 0.1 k/uL (0-0.2); Basophils % (A) 1 %; Eosinophils # (A) 0.7 k/uL (0-0.7); Eosinophils % (A) 9 %; HCT 42.1 % (39.0-53.0); HGB 13.8 gm/dL (13.0-17.5); Lymphocytes # (A) 2.1 k/uL (1.0-4.8); Lymphocytes % (A) 24 %; MCH 29.7 pg (25.0-35.0); MCHC 32.8 g/dL (31.0-37.0); MCV 90.6 fL (80.0-100.0); Mean Platelet Volume 7.3; Monocytes # (A) 0.7 k/uL (0-1.0); Monocytes % (A) 8 %; Neutrophils % (A) 58 %; Platelet Count 298 k/uL (150-450); RBC 4.65 m/uL (4.30-5.90); WBC 8.7 k/uL (3.8-10.6)
[2018-06-15 12:12] LABS: Anion Gap 4 mmol/L; Blood Urea Nitrogen 15 mg/dL (9-20); Calcium 9.6 mg/dL (8.4-10.2); Carbon Dioxide 32 mmol/L (22-30); Chloride 102 mmol/L (98-107); Glucose 91 mg/dL (74-99); Potassium 4.5 mmol/L (3.5-5.1); Sodium 138 mmol/L (137-145)
--- NOTE | 2018-06-15 14:40 | P.PN ---
Subjective Progress Note Date: 06/15/18 Patient reports that his pain is controlled with the current management and his breathing is better as compared to when he came to the emergency department. Patient has THORAVAC placed in the emergency department and this is the second incidence of left pneumothorax in the past few weeks. Patient reported that the assistance of the thoracic surgeon was in the room with the patient earlier today and stated that he is going to discuss with the thoracic surgeon and came up with the plan of care for the patient. Patient denies chest pain or palpitation, dizziness, lightheadedness, diaphoresis, fever, chills, nausea, vomiting, diarrhea and denies rest of the review system. Objective - Vital Signs Vital signs: Vital Signs Temp 97.0 F L 06/15/18 08:00 Pulse 79 06/15/18 08:00 Resp 20 06/15/18 04:00 BP 134/81 06/15/18 08:00 Pulse Ox 96 06/15/18 08:00 Intake & Output 06/14/18 06/15/18 06/15/18 18:59 06:59 18:59 Intake Total 1440 360 Output Total 600 Balance 840 360 Weight 83.915 kg 83.9 kg Intake: Oral 1440 360 Output: Urine 600 Other: Voiding Method Urinal # Voids 0 - Constitutional General appearance: Present: average body habitus, cooperative, no acute distress - EENT Eyes: Present: EOMI, normal appearance - Neck Neck: Present: normal ROM. Absent: lymphadenopathy - Respiratory Details: Thoravac placed left anterior chest wall. Respiratory: bilateral: CTA, negative: rales, rhonchi, wheezing - Cardiovascular Rhythm: regular Heart sounds: normal: S1, S2 Abnormal Heart Sounds: Absent: systolic murmur, diastolic murmur, rub, S3 Gallop , S4 Gallop, click - Gastrointestinal General gastrointestinal: Present: normal bowel sounds, soft. Absent: distended , organomegaly, tenderness - Neurologic Neurologic: Present: CNII-XII intact, focal deficits - Psychiatric Psychiatric: Present: A&O x's 3, appropriate affect, intact judgment & insight - Labs CBC & Chem 7: 06/15/18 11:33 06/15/18 11:33 Labs: Abnormal Lab Results - Last 24 Hours (Table) 06/15/18 Range/Units 11:33 Carbon Dioxide 32 H (22-30) mmol/L - Imaging and Cardiology Chest x-ray: report reviewed Assessment and Plan (1) Pneumothorax, left Narrative/Plan: Thoracic surgery is on case and await their recommendation, possible surgical intervention is needed at this of the second episode within a month of a spontaneous pneumothorax. Patient will be continued on negative pressure waterseal system until final recommendation from thoracic surgery and their management. Continue pain control with current management. Current Visit: Yes Status: Acute Code(s): J93.9 - PNEUMOTHORAX, UNSPECIFIED SNOMED Code(s): 837687864 (2) Alcohol use Narrative/Plan: Counseling done to the patient was well understood by him and agree with quitting alcohol altogether. Current Visit: Yes Status: Chronic Priority: Low Code(s): Z78.9 - OTHER SPECIFIED HEALTH STATUS SNOMED Code(s): 960883455 (3) Tobacco dependence Narrative/Plan: Patient was given counseling regarding quitting smoking, he stated that he smokes a few cigarettes a day but is exposed to passive smoking too. After counseling patient agreed that he needed to quit active as well as passive smoking exposure for his better health. He stated that he already started using nicotine gum and is helping him while in the hospital and would like to continue once he is discharged. Current Visit: Yes Status: Chronic Priority: High Code(s): F17.200 - NICOTINE DEPENDENCE, UNSPECIFIED, UNCOMPLICATED SNOMED Code(s): 07615362 Plan: Continue present management, negative pressure waterseal THORAVAC system and will wait for final recommendation from thoracic surgery. Time with Patient: Less than 30
[2018-06-15] MEDS: HEPARIN SODIUM,PORCINE 5,000 UNIT/ML 1 ML VIAL SQ SCH (16:52)
[2018-06-15] MEDS: DOCUSATE 100 MG CAP PO PRN (19:39)
[2018-06-16] MEDS: HYDROcodone/APAP 5-325MG 1 EACH TAB PO PRN ×4 (00:14→20:41)
[2018-06-16] MEDS: HEPARIN SODIUM,PORCINE 5,000 UNIT/ML 1 ML VIAL SQ SCH ×4 (00:15→23:46)
[2018-06-16] MEDS: MORPHINE SULFATE 4 MG/ML SYRINGE IV PRN ×5 (01:39→20:42)
[2018-06-16] MEDS: ONDANSETRON 4 MG/2 ML VIAL IVP PRN ×3 (01:39→20:40)
--- NOTE | 2018-06-16 06:32 | XR ---
EXAMINATION TYPE: XR chest 2V DATE OF EXAM: 06/16/2018 COMPARISON: Chest x-ray from 2 days ago. HISTORY: Left-sided pneumothorax progress study. TECHNIQUE: Frontal and lateral views of the chest are obtained. FINDINGS: There is redemonstration of stable Thoravent catheter without sizable pneumothorax. There is persistent small left pleural fluid component or hemothorax. There is associated left basilar atel ectasis and/or infiltrate. Right lung remains clear. Cardiac silhouette size is within normal limits. Osseous structures are intact. IMPRESSION: No sizable pneumothorax with chest tube in place. Persistent small left pleural fluid co llection and associated left basilar atelectasis and/or infiltrate.
[2018-06-16] MEDS ORDERED: PANTOPRAZOLE 40 MG TABLET PO SCH (07:30)
--- NOTE | 2018-06-16 10:06 | P.PN ---
Subjective Progress Note Date: 06/16/18 Principal diagnosis: Shortness of breath Patient is a 27-year-old male with a past medical history of recent rib fracture and pneumothorax, one prior seizure, and tobacco abuse who presented to the emergency department with complaints of shortness of breath. He had recently been hospitalized here twice with left-sided pneumothorax that initially occurred after falling down 6 stairs and landing on his left chest wall. In the ER he underwent an extensive evaluation. Chest x-ray it was completed which showed a recurrent moderate to large sized left pneumothorax. A left-sided thoravent was inserted and placed to sucction. Cardiothoracic surgery was consulted and the patient was admitted for further recommendations. Patient seen and examined at bedside. He complains of left-sided chest pain. No shortness of breath is resolved. He denies any nausea or vomiting. He is upset that he initially fell down the stairs. He denies any anxiety or hallucinations. Objective - Vital Signs Vital signs: Vital Signs Temp 98.0 F 06/16/18 08:00 Pulse 66 06/16/18 08:00 Resp 16 06/16/18 04:00 BP 140/91 06/16/18 08:00 Pulse Ox 96 06/16/18 08:00 Intake & Output 06/15/18 06/16/18 06/16/18 18:59 06:59 18:59 Intake Total 360 480 180 Output Total 550 0 Balance -190 480 180 Weight 84.1 kg Intake: Oral 360 480 180 Output: Urine 550 0 Other: Voiding Method Urinal # Voids 650 - Exam General: non toxic, no distress, appears at stated age Derm: warm, dry Head: atraumatic, normocephalic, symmetric Eyes: EOMI, no lid lag, anicteric sclera Mouth: no lip lesion, mucus membranes moist Cardiovascular: S1S2 reg, no murmur, positive posterior tibial pulse bilateral, Lungs: Decreased breath sounds left base, no rhonchi, no rales , no accessory muscle use Abdominal: soft, nontender to palpation, no guarding, no appreciable organomegaly Ext: no gross muscle atrophy, no edema, no contractures Neuro: CN II-XI grossly intact, no focal neuro deficits Psych: Alert, oriented, appropriate affect - Labs CBC & Chem 7: 06/15/18 11:33 06/15/18 11:33 Labs: Abnormal Lab Results - Last 24 Hours (Table) 06/15/18 Range/Units 11:33 Carbon Dioxide 32 H (22-30) mmol/L Assessment and Plan Assessment: Recurrent left-sided pneumothorax -Chest tube management as per cardiothoracic surgery-may need surgery with history of recurrent effusions -CT chest results pending at time of evaluation -Pain control Tobacco abuse -Cessation -Nicotine replacement DVT prophylaxis: Heparin subcutaneous Discussed with: Patient, nursing, [facility] [employer]ER Anticipated discharge: Undetermined as unsure if we'll need surgery or not Anticipated discharge place: Home A total of 20 minutes was spent on the care of this complex patient more than 50 % of the time was spent in counseling and care coordination.
--- NOTE | 2018-06-16 10:21 | P.PN ---
Subjective Progress Note Date: 06/16/18 Principal diagnosis: Recurrent left-sided spontaneous pneumothorax, discharged from this facility 05/2018 after previous left-sided spontaneous pneumothorax.. Medical history positive for current tobacco dependence, occasional marijuana use, and alcohol use. Patient is currently sitting up in bed in no acute distress. States pain is controlled on current medication regimen. Thoravent placed to waterseal this morning, no air leak present. Objective - Vital Signs Vital signs: Vital Signs Temp 98.0 F 06/16/18 08:00 Pulse 66 06/16/18 08:00 Resp 16 06/16/18 04:00 BP 140/91 06/16/18 08:00 Pulse Ox 96 06/16/18 08:00 Intake & Output 06/15/18 06/16/18 06/16/18 18:59 06:59 18:59 Intake Total 360 480 180 Output Total 550 0 Balance -190 480 180 Weight 84.1 kg Intake: Oral 360 480 180 Output: Urine 550 0 Other: Voiding Method Urinal # Voids 650 - Constitutional General appearance: Present: cooperative, no acute distress - Respiratory Details: Lungs sounds clear bilaterally. Respirations even, nonlabored. Currently on room air with oxygen saturation 100%. Able to achieve 2500 mL on his incentive spirometry. Left-sided thoravent in place, capped, no air leak present. - Cardiovascular Details: S1, S2 present. Regular rate and rhythm, sinus rhythm on telemetry. Palpable peripheral pulses bilaterally. No edema present. No calf pain or tenderness noted. - Gastrointestinal Gastrointestinal Comment(s): Abdomen soft, nontender, nondistended. Active bowel sounds 4 quadrants. Tolerating diet. - Genitourinary Genitourinary Comment(s): Continues to void clear, yellow urine. - Integumentary Integumentary Comment(s): Skin is warm and dry with evidence of good perfusion. - Neurologic Neurologic: Present: CNII-XII intact - Musculoskeletal Musculoskeletal: Present: gait normal, strength equal bilaterally - Psychiatric Psychiatric: Present: A&O x's 3, appropriate affect, intact judgment & insight - Allied health notes Allied health notes reviewed: nursing - Labs CBC & Chem 7: 06/15/18 11:33 06/15/18 11:33 Labs: Abnormal Lab Results - Last 24 Hours (Table) 06/15/18 Range/Units 11:33 Carbon Dioxide 32 H (22-30) mmol/L - Imaging and Cardiology Chest x-ray: report reviewed, image reviewed Assessment and Plan (1) Pneumothorax, left Current Visit: Yes Status: Acute Code(s): J93.9 - PNEUMOTHORAX, UNSPECIFIED SNOMED Code(s): 398457399 (2) Alcohol use Current Visit: Yes Status: Chronic Priority: Low Code(s): Z78.9 - OTHER SPECIFIED HEALTH STATUS SNOMED Code(s): 450096783 (3) Tobacco dependence Current Visit: Yes Status: Chronic Priority: High Code(s): F17.200 - NICOTINE DEPENDENCE, UNSPECIFIED, UNCOMPLICATED SNOMED Code(s): 66936419 (4) Marijuana use Current Visit: Yes Status: Chronic Code(s): F12.90 - CANNABIS USE, UNSPECIFIED, UNCOMPLICATED SNOMED Code(s): 626184806 Plan: 1. Thoravent placed to waterseal. CT of the chest without contrast ordered to evaluate pneumothorax. 2. Pain control is current medication regimen. 3. Encourage incentive spirometry use it 10 times every hour. 4. Patient again counseled regarding the importance of tobacco cessation. 5. Increase activity, ambulate in hallway. 6. GI/DVT prophylaxis. 7. Medical management per primary care service. 8. More recommendations to follow. Patient does have a follow-up appointment made with Dr. Guerra this June 19 at 12:45. Time with Patient: Greater than 30
--- NOTE | 2018-06-16 10:31 | CT ---
EXAMINATION TYPE: CT chest wo con DATE OF EXAM: 06/16/2018 COMPARISON: 04/23/2018, 06/16/2018 chest x-ray HISTORY: left sided pneumothorax CT DLP: 527 mGycm, Automated exposure control for dose reduction was used. CONTRAST: Performed injected with 0 mL of Isovue 300. TECHNIQUE: Axial images were obtained at 5 mm thick sections. Reconstructed images are reviewed on [employer] computer in the coronal plane. FINDINGS: Portion of the thyroid visualized is normal. No suspicious lung nodules or focal infiltrates are present. Small left pleural effusion is present. Chest tube is present on the left. No pneumothorax is evident. Some intimal streak atelectasis is wit hin the lingula left lower lobe adjacent to the base. Some streak atelectasis is likely present at th e right posterior lung base. No enlarged mediastinal or hilar adenopathy is evident. The ascending aorta diameter at the level o f the main pulmonary artery is 3.4 cm. The main pulmonary artery diameter at the bifurcation is 2.[address] sections are obtained through the upper abdomen. Abdomen is essentially unremarkable. IMPRESSIONS: 1. No pneumothorax. Left-sided chest tube is present. 2. Small left pleural fluid collection. 3. Bibasilar streak opacities, likely atelectasis
[2018-06-16] MEDS ORDERED: CALCIUM CARBONATE 500 MG CHEWABLE PO PRN (13:25)
[2018-06-16] MEDS: PANTOPRAZOLE 40 MG TABLET PO SCH (17:11)
[2018-06-16] MEDS: IBUPROFEN 400 MG TAB PO PRN (23:47)
[2018-06-17] MEDS: HYDROcodone/APAP 5-325MG 1 EACH TAB PO PRN ×5 (01:20→20:42)
[2018-06-17] MEDS: MORPHINE SULFATE 4 MG/ML SYRINGE IV PRN ×6 (01:21→23:36)
[2018-06-17] MEDS: PANTOPRAZOLE 40 MG TABLET PO SCH ×2 (06:13→16:26)
[2018-06-17] MEDS: HEPARIN SODIUM,PORCINE 5,000 UNIT/ML 1 ML VIAL SQ SCH ×3 (08:40→23:37)
[2018-06-17] MEDS: ONDANSETRON 4 MG/2 ML VIAL IVP PRN (08:40)
--- NOTE | 2018-06-17 13:08 | P.PN ---
Subjective Progress Note Date: 06/17/18 Principal diagnosis: Recurrent left-sided spontaneous pneumothorax, discharged from this facility 05/2018 after previous left-sided spontaneous pneumothorax.. Medical history positive for current tobacco dependence, occasional marijuana use, and alcohol use. POD #3 placement of left-sided thoravent by the ER physicians. Patient is currently sitting up in bed in no acute distress. States pain is controlled on current medication regimen. Thoravent currently on waterseal, no air leak present. Patient is frustrated with recurrent pneumothoraces, would like surgical intervention to "fix the problem". Objective - Vital Signs Vital signs: Vital Signs Temp 97.2 F L 06/17/18 12:00 Pulse 70 06/17/18 12:00 Resp 16 06/17/18 12:00 BP 124/79 06/17/18 12:00 Pulse Ox 98 06/17/18 12:00 Intake & Output 06/16/18 06/17/18 06/17/18 18:59 06:59 18:59 Intake Total 724 960 Balance 724 960 Weight 84.1 kg Intake: Oral 724 960 Other: Voiding Method Urinal # Voids 1 1 - Constitutional General appearance: Present: cooperative, no acute distress - Respiratory Details: Lungs sounds clear bilaterally. Respirations even, nonlabored. Currently on room air with oxygen saturation 98%. Able to achieve 3500 mL on his incentive spirometry. Left-sided thoravent in place, capped, no air leak present. - Cardiovascular Details: S1, S2 present. Regular rate and rhythm, sinus rhythm on telemetry. Palpable peripheral pulses bilaterally. No edema present. No calf pain or tenderness noted. - Gastrointestinal Gastrointestinal Comment(s): Abdomen soft, nontender, nondistended. Active bowel sounds 4 quadrants. Tolerating diet. - Genitourinary Genitourinary Comment(s): Continues to void clear, yellow urine. - Integumentary Integumentary Comment(s): Skin is warm and dry with evidence of good perfusion. - Neurologic Neurologic: Present: CNII-XII intact - Musculoskeletal Musculoskeletal: Present: gait normal, strength equal bilaterally - Psychiatric Psychiatric: Present: A&O x's 3, appropriate affect, intact judgment & insight - Allied health notes Allied health notes reviewed: nursing - Labs CBC & Chem 7: 06/15/18 11:33 06/15/18 11:33 - Imaging and Cardiology CT scan - chest: report reviewed, image reviewed Assessment and Plan (1) Pneumothorax, left Current Visit: Yes Status: Acute Code(s): J93.9 - PNEUMOTHORAX, UNSPECIFIED SNOMED Code(s): 970757718 (2) Alcohol use Current Visit: Yes Status: Chronic Priority: Low Code(s): Z78.9 - OTHER SPECIFIED HEALTH STATUS SNOMED Code(s): 126824921 (3) Tobacco dependence Current Visit: Yes Status: Chronic Priority: High Code(s): F17.200 - NICOTINE DEPENDENCE, UNSPECIFIED, UNCOMPLICATED SNOMED Code(s): 75016022 (4) Marijuana use Current Visit: Yes Status: Chronic Code(s): F12.90 - CANNABIS USE, UNSPECIFIED, UNCOMPLICATED SNOMED Code(s): 735486952 Plan: 1. Thoravent continues to waterseal. CT of the chest reviewed. 2. Pain control is current medication regimen. 3. Encourage incentive spirometry use it 10 times every hour. 4. Patient again counseled regarding the importance of tobacco cessation. 5. Increase activity, ambulate in hallway. 6. GI/DVT prophylaxis. 7. Medical management per primary care service. 8. Plan is for left video-assisted thoracoscopy with stapling of blebs on , 06/19/2018. Patient will be nothing by mouth after midnight on that day. This was patient's choice as he was given the option of conservative treatment versus surgical intervention. Risks and benefits were reviewed with the patient and he consented to surgery. This was discussed with the patient's grandmother who was also at the bedside. Time with Patient: Greater than 30
--- NOTE | 2018-06-17 13:34 | P.PN ---
Subjective Progress Note Date: 06/17/18 Principal diagnosis: Left pneumothorax Doing well, asking for pain medicine. No sob. Objective - Vital Signs Vital signs: Vital Signs Temp 97.2 F L 06/17/18 12:00 Pulse 70 06/17/18 12:00 Resp 16 06/17/18 12:00 BP 124/79 06/17/18 12:00 Pulse Ox 98 06/17/18 12:00 Intake & Output 06/16/18 06/17/18 06/17/18 18:59 06:59 18:59 Intake Total 724 960 Balance 724 960 Weight 84.1 kg Intake: Oral 724 960 Other: Voiding Method Urinal # Voids 1 1 - Exam General: non toxic, no distress, appears at stated age Derm: warm, dry Head: atraumatic, normocephalic, symmetric Eyes: EOMI, no lid lag, anicteric sclera Mouth: no lip lesion, mucus membranes moist Cardiovascular: S1S2 reg, no murmur, positive posterior tibial pulse bilateral, Lungs: Decreased breath sounds left base, no rhonchi, no rales , no accessory muscle use Abdominal: soft, nontender to palpation, no guarding, no appreciable organomegaly Ext: no gross muscle atrophy, no edema, no contractures Neuro: CN II-XI grossly intact, no focal neuro deficits Psych: Alert, oriented, appropriate affect - Labs CBC & Chem 7: 06/15/18 11:33 06/15/18 11:33 Assessment and Plan Plan: Recurrent left-sided pneumothorax -Chest tube management as per cardiothoracic surgery -Plan for left video-assisted thoracoscopy with stapling of blebs on , 06/19/2018 -CT chest report reviewed. -Pain control Tobacco abuse -Cessation -Nicotine replacement DVT prophylaxis: Heparin subcutaneous Discussed with: Patient, nursing Anticipated discharge: 06/[address]: Home A total of 20 minutes was spent on the care of this complex patient more than 50 % of the time was spent in counseling and care coordination.
[2018-06-17] MEDS: IBUPROFEN 400 MG TAB PO PRN (23:37)
[2018-06-18] MEDS: HYDROcodone/APAP 5-325MG 1 EACH TAB PO PRN ×3 (00:53→20:22)
[2018-06-18] MEDS: PANTOPRAZOLE 40 MG TABLET PO SCH ×3 (06:39→21:59)
--- NOTE | 2018-06-18 08:33 | XR ---
EXAMINATION TYPE: XR chest 1V portable DATE OF EXAM: 06/18/2018 COMPARISON: Prior chest 06/16/2018 HISTORY: Pneumothorax, chest tube TECHNIQUE: Single frontal view of the chest is obtained. FINDINGS: Left-sided thoracic vent is again noted, catheter coursing over the apical region. No siza ble pneumothorax. Minimal patchy basilar density is again noted, there is retrocardiac density presen t. Some minimal blunting the left costophrenic angle persists. Cardiomediastinal silhouette, pulmonar y vascularity and ana are within normal limits. IMPRESSION: Essentially stable findings. Probable left lower lobe atelectasis and associated effusio n.
[2018-06-18] MEDS: HEPARIN SODIUM,PORCINE 5,000 UNIT/ML 1 ML VIAL SQ SCH ×3 (09:20→20:24)
--- NOTE | 2018-06-18 11:57 | P.PN ---
<Pasha Landry - Last Filed: 06/18/18 11:49> Subjective Progress Note Date: 06/18/18 Principal diagnosis: Recurrent left-sided spontaneous pneumothorax, discharged from this facility 05/2018 after previous left-sided spontaneous pneumothorax. Medical history positive for current tobacco dependence, occasional marijuana use, and alcohol use. POD #4 placement of left-sided Thoravent by the ER physicians. The patient is currently laying in bed in no acute distress. He denies any complaints of shortness of breath although rates his pain 8 out of 10 on the pain scale to his left chest. Left chest Thoravent remains in place no airleak present. He reports that he has been out of bed ambulating in the hallway without difficulty. Objective - Vital Signs Vital signs: Vital Signs Temp 97.2 F L 06/18/18 08:03 Pulse 71 06/18/18 08:03 Resp 16 06/18/18 08:03 BP 137/94 06/18/18 08:03 Pulse Ox 97 06/18/18 08:03 Intake & Output 06/17/18 06/18/18 06/18/18 18:59 06:59 18:59 Intake Total 1440 240 Balance 1440 240 Weight 85.1 kg Intake: Oral 1440 240 Other: Voiding Method Urinal # Voids 2 2 - Constitutional General appearance: Present: cooperative, no acute distress - Respiratory Details: Lung sounds are essentially clear throughout. Respirations are symmetrical and nonlabored. Oxygen saturation are 97% on room air. He is achieving 3500 mL on his incentive spirometry. Left anterior chest Thoravent in place and capped. No air leak is present. - Cardiovascular Details: Regular rhythm and rate. S1 and S2 present, negative for S3, gallop or murmur. No edema present. Peripheral pulses palpable bilaterally. - Gastrointestinal Gastrointestinal Comment(s): Abdomen is soft, nontender and nondistended. Active bowel sounds all 4 abdominal quadrants. Tolerating oral intake. - Genitourinary Genitourinary Comment(s): Voiding clear yellow urine. - Integumentary Integumentary Comment(s): Skin is warm and dry. No clubbing or cyanosis present. No rash or abnormal pigmentation present. - Neurologic Neurologic: Present: CNII-XII intact - Musculoskeletal Musculoskeletal: Present: gait normal, strength equal bilaterally - Psychiatric Psychiatric: Present: A&O x's 3, appropriate affect, intact judgment & insight - Allied health notes Allied health notes reviewed: nursing - Labs CBC & Chem 7: 06/15/18 11:33 06/15/18 11:33 - Imaging and Cardiology Chest x-ray: report reviewed, image reviewed Assessment and Plan (1) Pneumothorax, left Current Visit: Yes Status: Acute Code(s): J93.9 - PNEUMOTHORAX, UNSPECIFIED SNOMED Code(s): 720615921 (2) Alcohol use Current Visit: Yes Status: Chronic Priority: Low Code(s): Z78.9 - OTHER SPECIFIED HEALTH STATUS SNOMED Code(s): 704578949 (3) Marijuana use Current Visit: Yes Status: Chronic Code(s): F12.90 - CANNABIS USE, UNSPECIFIED, UNCOMPLICATED SNOMED Code(s): 248873894 (4) Tobacco dependence Current Visit: Yes Status: Chronic Priority: High Code(s): F17.200 - NICOTINE DEPENDENCE, UNSPECIFIED, UNCOMPLICATED SNOMED Code(s): 82912476 Plan: 1. Thoravent to remain capped. 2. Pain control is current medication regimen. 3. Encourage incentive spirometry use it 10 times every hour. 4. Discussion and reinforcement of the importance of tobacco cessation reviewed with the patient. 5. Increase activity, ambulate in hallway. 6. GI/DVT prophylaxis. 7. Medical management per primary care service. 8. Plan is for left video-assisted thoracoscopy with stapling of blebs tomorrow , 06/19/2018 to be performed by Dr. Meet Guerra. 9. Nothing by mouth after midnight. 10. More recommendations to follow based on patient's clinical course. Time with Patient: Greater than 30 <Ender Ahn - Last Filed: 06/18/18 15:11> Objective - Vital Signs Vital signs: Vital Signs Temp 97.2 F L 06/18/18 08:03 Pulse 71 06/18/18 08:03 Resp 16 06/18/18 08:03 BP 137/94 06/18/18 08:03 Pulse Ox 97 06/18/18 08:03 Intake & Output 06/17/18 06/18/18 06/18/18 18:59 06:59 18:59 Intake Total 1440 720 Balance 1440 720 Weight 85.1 kg Intake: Oral 1440 720 Other: Voiding Method Urinal # Voids 2 2 1 - Labs CBC & Chem 7: 06/15/18 11:33 06/15/18 11:33 Assessment and Plan Plan: I saw the patient and agree with the plan as outlined. Second occurance of pneumothorax, VATS pleurodesis indicated. Discussed with patient and answered all questions. Plan VATS tomorrow with Dr. Guerra.
--- NOTE | 2018-06-18 12:13 | P.PN ---
Subjective Progress Note Date: 06/18/18 Principal diagnosis: Left pneumothorax Patient doing well, complaining that he could not sleep much last night. Still having some left sided chest pain, no shortness of breath Objective - Vital Signs Vital signs: Vital Signs Temp 97.2 F L 06/18/18 08:03 Pulse 71 06/18/18 08:03 Resp 16 06/18/18 08:03 BP 137/94 06/18/18 08:03 Pulse Ox 97 06/18/18 08:03 Intake & Output 06/17/18 06/18/18 06/18/18 18:59 06:59 18:59 Intake Total 1440 240 Balance 1440 240 Weight 85.1 kg Intake: Oral 1440 240 Other: Voiding Method Urinal # Voids 2 2 - Exam General: non toxic, no distress, appears at stated age Derm: warm, dry Head: atraumatic, normocephalic, symmetric Eyes: EOMI, no lid lag, anicteric sclera Mouth: no lip lesion, mucus membranes moist Cardiovascular: S1S2 reg, no murmur, positive posterior tibial pulse bilateral, Lungs: Decreased breath sounds left base, no rhonchi, no rales , no accessory muscle use Abdominal: soft, nontender to palpation, no guarding, no appreciable organomegaly Ext: no gross muscle atrophy, no edema, no contractures Neuro: CN II-XI grossly intact, no focal neuro deficits Psych: Alert, oriented, appropriate affect - Labs CBC & Chem 7: 06/15/18 11:33 06/15/18 11:33 Assessment and Plan Plan: Recurrent left-sided pneumothorax -Chest tube management as per cardiothoracic surgery -Plan for left video-assisted thoracoscopy with stapling of blebs on , 06/19/2018--nothing by mouth after midnight -CT chest report reviewed. -Pain control Insomnia Ambien Tobacco abuse -Cessation -Nicotine replacement DVT prophylaxis: Heparin subcutaneous Discussed with: Patient, nursing Anticipated discharge: 06/[address]: Home A total of 20 minutes was spent on the care of this complex patient more than 50 % of the time was spent in counseling and care coordination.
[2018-06-18] MEDS: MORPHINE SULFATE 4 MG/ML SYRINGE IV PRN ×3 (12:16→21:08)
[2018-06-18] MEDS: IBUPROFEN 400 MG TAB PO PRN ×2 (12:32→21:08)
[2018-06-18] MEDS: ONDANSETRON 4 MG/2 ML VIAL IVP PRN (20:26)
[2018-06-18] MEDS ORDERED: ZOLPIDEM 5 MG TAB PO SCH (21:00)
[2018-06-19] MEDS: HYDROcodone/APAP 5-325MG 1 EACH TAB PO PRN ×4 (00:13→20:01)
[2018-06-19] MEDS ORDERED: ONDANSETRON 4 MG/2 ML VIAL IVP ONE (00:30)
[2018-06-19] MEDS ORDERED: DEXAMETHASONE SOD PHOSPHATE 10 MG/ML 1 ML VIAL IV ONE (00:30)
[2018-06-19] MEDS ORDERED: LACTATED RINGERS 1,000 ML IV SCH (00:30)
[2018-06-19] MEDS: MORPHINE SULFATE 4 MG/ML SYRINGE IV PRN ×2 (00:52→05:40)
[2018-06-19 06:56] LABS: Basophils # (A) 0.1 k/uL (0-0.2); Basophils % (A) 1 %; Eosinophils # (A) 0.4 k/uL (0-0.7); Eosinophils % (A) 6 %; HCT 41.1 % (39.0-53.0); HGB 13.6 gm/dL (13.0-17.5); Lymphocytes # (A) 2.3 k/uL (1.0-4.8); Lymphocytes % (A) 32 %; MCH 31.1 pg (25.0-35.0); MCHC 33.2 g/dL (31.0-37.0); MCV 93.7 fL (80.0-100.0); Mean Platelet Volume 7.6; Monocytes # (A) 0.6 k/uL (0-1.0); Monocytes % (A) 8 %; Neutrophils # (A) 3.8 k/uL (1.3-7.7); Neutrophils % (A) 52 %; Platelet Count 283 k/uL (150-450); RBC 4.38 m/uL (4.30-5.90); RDW 13.3 % (11.5-15.5); WBC 7.3 k/uL (3.8-10.6)
[2018-06-19 07:12] LABS: Anion Gap 4 mmol/L; Blood Urea Nitrogen 18 mg/dL (9-20); Calcium 9.5 mg/dL (8.4-10.2); Carbon Dioxide 31 mmol/L (22-30); Chloride 104 mmol/L (98-107); Glucose 83 mg/dL (74-99); Potassium 4.6 mmol/L (3.5-5.1); Sodium 139 mmol/L (137-145)
[2018-06-19] MEDS: HEPARIN SODIUM,PORCINE 5,000 UNIT/ML 1 ML VIAL SQ SCH ×3 (07:53→23:57)
[2018-06-19] MEDS: ONDANSETRON 4 MG/2 ML VIAL IVP PRN (07:53)
[2018-06-19] MEDS ORDERED: MIDAZOLAM 2 MG/2 ML VIAL ONE (08:29)
[2018-06-19] MEDS ORDERED: SUCCINYLCHOLINE CHLORIDE 100 MG/5 ML SYR IV ONE (08:29)
[2018-06-19] MEDS ORDERED: PROPOFOL 10 MG/ML 20 ML VIAL IV ONE (08:29)
[2018-06-19] MEDS ORDERED: LIDOCAINE 1% INJ 10MG/ML (20 ML MDV) ONE (08:29)
[2018-06-19] MEDS ORDERED: ROCURONIUM BROMIDE 10 MG/ML 10 ML VIAL IV ONE (08:29)
[2018-06-19] MEDS ORDERED: fentaNYL (PF) 50 MCG/ML 2 ML AMP ONE (08:29)
[2018-06-19] MEDS ORDERED: MORPHINE SULFATE 10 MG/ML SYRINGE ONE (08:29)
[2018-06-19] MEDS ORDERED: ceFAZolin IN SWFI 2 GM/20 ML SYRINGE IVP ONE (08:30)
[2018-06-19] MEDS ORDERED: ceFAZolin 2,000 MG in DEXTROSE/WATER 1 50ML.BAG IVPB ONE (08:30)
[2018-06-19] MEDS ORDERED: SODIUM CHLORIDE 0.9% 50 ML with ceFAZolin 2,000 MG IV ONE ×2 (08:55)
[2018-06-19] MEDS ORDERED: LIDOCAINE 1% INJ 10MG/ML (20 ML MDV) SQ ONE (09:14)
[2018-06-19] MEDS ORDERED: ROPIVACAINE 5 MG/ML 30 ML VIAL MISCELLANE ONE ×2 (09:28)
--- NOTE | 2018-06-19 10:10 | P.PN ---
Subjective Progress Note Date: 06/19/18 Principal diagnosis: Left pneumothorax Patient will undergo video-assisted thoracoscopy today Objective - Vital Signs Vital signs: Vital Signs Temp 97.0 F L 06/19/18 07:29 Pulse 60 06/19/18 07:29 Resp 16 06/19/18 07:29 BP 132/89 06/19/18 07:29 Pulse Ox 98 06/19/18 07:29 Intake & Output 06/18/18 06/19/18 06/19/18 18:59 06:59 18:59 Intake Total 1200 20 750 Output Total 50 Balance 1200 20 700 Intake: IV 20 750 0.9 20 Oral 1200 Output: Estimated Blood Loss 50 Other: # Voids 1 - Exam General: non toxic, no distress, appears at stated age Derm: warm, dry Head: atraumatic, normocephalic, symmetric Eyes: EOMI, no lid lag, anicteric sclera Mouth: no lip lesion, mucus membranes moist Cardiovascular: S1S2 reg, no murmur, positive posterior tibial pulse bilateral, Lungs: Decreased breath sounds left base, no rhonchi, no rales , no accessory muscle use Abdominal: soft, nontender to palpation, no guarding, no appreciable organomegaly Ext: no gross muscle atrophy, no edema, no contractures Neuro: CN II-XI grossly intact, no focal neuro deficits Psych: Alert, oriented, appropriate affect - Labs CBC & Chem 7: 06/19/18 06:09 06/19/18 06:09 Labs: Abnormal Lab Results - Last 24 Hours (Table) 06/19/18 Range/Units 06:09 Carbon Dioxide 31 H (22-30) mmol/L Assessment and Plan Plan: Recurrent left-sided pneumothorax -Chest tube management as per cardiothoracic surgery -Plan for left video-assisted thoracoscopy with stapling of blebs today -Pain control Insomnia Ambien Tobacco abuse -Cessation -Nicotine replacement DVT prophylaxis: Heparin subcutaneous Discussed with: Patient, nursing Anticipated discharge: 06/[address]: Home A total of 20 minutes was spent on the care of this complex patient more than 50 % of the time was spent in counseling and care coordination.
[2018-06-19] MEDS ORDERED: DEXTROSE 5%-0.45% NACL 1,000 ML IV SCH (10:22)
[2018-06-19] MEDS: HYDROmorphone 1 MG/ML 1 ML SYRINGE IVP PRN ×2 (10:31→10:41)
--- NOTE | 2018-06-19 10:44 | XR ---
EXAMINATION TYPE: XR chest 1V DATE OF EXAM: 06/19/2018 COMPARISON: 06/18/2018 INDICATION: Pneumothorax, post VATS TECHNIQUE: Single frontal view of the chest is obtained. FINDINGS: The heart size is normal. The pulmonary vasculature is normal. Minimal infiltrate is along the right diaphragm may be some atelectasis There is a left-sided chest tube present. No pneumothorax is evident. Subcutaneous air is near the in sertion site. IMPRESSION: 1. Left-sided chest tube. No pneumothorax is evident. 2. Mild atelectasis right lung base
[2018-06-19] MEDS: ACETAMINOPHEN IV (For NPO) 1,000 MG in EMPTY BAG 1 BAG IVPB SCH ×4 (10:55→23:47)
[2018-06-19] MEDS: KETOROLAC 30 MG/ML 1 ML VIAL IVP SCH ×3 (11:09→23:48)
[2018-06-19] MEDS: ceFAZolin IN SWFI 2 GM/20 ML SYRINGE IVP SCH ×2 (15:18→23:57)
[2018-06-19] MEDS: traMADol 50 MG TAB PO SCH ×2 (15:59→20:58)
--- NOTE | 2018-06-19 16:08 | P.OP ---
Date of Procedure: 06/19/18 Preoperative Diagnosis: Recurrent spontaneous pneumothorax on the left Postoperative Diagnosis: Same Procedure(s) Performed: Left thoracoscopy with staple of apical blebs and mechanical pleurodesis Anesthesia: VINNY Surgeon: Meet Guerra Estimated Blood Loss (ml): 50 IV fluids (ml): 300 Urine output (ml): 0 Pathology: other (Left upper lobe apical blebs) Condition: stable Disposition: PACU Indications for Procedure: 27-year-old male who returns to the emergency room with recurrent pneumothorax. Thora vent was placed with good expansion. The patient was offered removal of the Thora vent or surgical repair and opted for the latter. Operative Findings: Multiple small blebs at the apex of the left upper lobe Description of Procedure: The patient was brought to the operating room, placed supine on the operating table, anesthetized and intubated. Double lumen endotracheal tube was placed in position with fiberoptic bronchoscopy. Patient was turned in the right lateral decubitus position and the left chest sterilely prepped and draped. 3 one-inch incisions were made in the left chest and carried down into the chest cavity using electrocautery. The lung was deflated. Chest cavity was explored. There were some soft adhesions in the apex which were taken down easily. Blebs in the apex were clearly identified. Multiple firings of Endo ANGELLA medium thick stapler were used to resect the blebs in the apex. 2 separate specimens were obtained. Each contained blebs from separate areas. On completion of the resection, the remainder the lung was carefully examined and no other blebs were noted. Mechanical pleurodesis was performed throughout the chest using tonsil sponges. A 28-Bel[place]ian chest tube was placed through separate stab incision and positioned posterior apically. It was secured with an 0 Ethibond suture. The lung was reinflated under thoracoscopic visualization and noted to inflate well. Rib blocks were performed with long acting local anesthetic at the level of the incisions. The incisions were closed with layers of Vicryl suture. There were dressed with skin glue. Chest tube dressing was placed around the chest tube and it was connected to a Pleur-evac. Patient was turned supine and extubated and transferred to recovery room in stable condition.
[2018-06-19] MEDS: PANTOPRAZOLE 40 MG TABLET PO SCH (17:38)
--- NOTE | 2018-06-19 19:06 | XR ---
EXAMINATION: XR chest 1V DATE AND TIME: 06/19/2018 6:24 PM CLINICAL INDICATION: suspected emphysema to (L) upper chest TECHNIQUE: PA and lateral COMPARISON: 06/19/2018 at 10:30 AM FINDINGS: Left chest tube remains in place. Tiny apical pneumothorax noted. The lungs are clear. The pleural spaces are otherwise negative. The cardiac silhouette is not enlarged. The remainder of the mediastinal silhouette is unremarkable. The skeletal structures and soft tissues are negative for acute findings. IMPRESSION: Tiny left pneumothorax.
[2018-06-20] MEDS: HYDROcodone/APAP 5-325MG 1 EACH TAB PO PRN ×4 (01:03→22:39)
[2018-06-20] MEDS: KETOROLAC 30 MG/ML 1 ML VIAL IVP SCH ×3 (06:25→18:07)
[2018-06-20] MEDS: PANTOPRAZOLE 40 MG TABLET PO SCH ×2 (06:27→17:05)
[2018-06-20 07:01] LABS: Basophils % (A) 0 %; Eosinophils # (A) 0.1 k/uL (0-0.7); Eosinophils % (A) 1 %; HCT 35.9 % (39.0-53.0); HGB 12.1 gm/dL (13.0-17.5); Lymphocytes % (A) 17 %; MCH 30.9 pg (25.0-35.0); MCHC 33.6 g/dL (31.0-37.0); MCV 92.2 fL (80.0-100.0); Mean Platelet Volume 9.1; Monocytes # (A) 0.8 k/uL (0-1.0); Monocytes % (A) 7 %; Neutrophils % (A) 74 %; Platelet Count 279 k/uL (150-450); RDW 13.2 % (11.5-15.5); WBC 12.2 k/uL (3.8-10.6)
[2018-06-20 07:13] LABS: Anion Gap 9 mmol/L; Blood Urea Nitrogen 13 mg/dL (9-20); Calcium 9.3 mg/dL (8.4-10.2); Carbon Dioxide 25 mmol/L (22-30); Chloride 103 mmol/L (98-107); Glucose 118 mg/dL (74-99); Sodium 137 mmol/L (137-145)
[2018-06-20 08:08] VITALS: BMI 24.7
--- NOTE | 2018-06-20 08:15 | XR ---
EXAMINATION TYPE: XR chest 1V DATE OF EXAM: 06/20/2018 COMPARISON: June 19, 2018 HISTORY: Postoperative left VATS TECHNIQUE: Single frontal view of the chest is obtained. FINDINGS: Left sided chest tube is in place. Tiny left apical pneumothorax persists. Small amount of subcutaneous air in the chest tube insertion site. There is no focal air space opacity, pleural effusion, or pneumothorax seen. The cardiac silhouette size is within normal limits. The osseous structures are intact. IMPRESSION: 1. No change in the appearance of the chest. Tiny left apical pneumothorax suspected.
[2018-06-20] MEDS: traMADol 50 MG TAB PO SCH ×3 (08:57→20:58)
[2018-06-20] MEDS: HEPARIN SODIUM,PORCINE 5,000 UNIT/ML 1 ML VIAL SQ SCH ×2 (08:58→15:17)
[2018-06-20] MEDS: ACETAMINOPHEN IV (For NPO) 1,000 MG in EMPTY BAG 1 BAG IVPB SCH (09:01)
[2018-06-20] MEDS ORDERED: HYDROmorphone 1 MG/ML 1 ML SYRINGE IVP STA (09:13)
--- NOTE | 2018-06-20 09:15 | P.PN ---
Subjective Progress Note Date: 06/20/18 Principal diagnosis: Left pneumothorax Patient stated that he is in a lot of pain, the pain is affecting his breathing. Pain is worse with deep breathing or any movement. Objective - Vital Signs Vital signs: Vital Signs Temp 96.3 F L 06/20/18 04:00 Pulse 104 H 06/20/18 04:00 Resp 20 06/20/18 04:00 BP 134/88 06/20/18 04:00 Pulse Ox 97 06/20/18 04:00 Intake & Output 06/19/18 06/20/18 06/20/18 18:59 06:59 18:59 Intake Total 1682 Output Total 593 1000 Balance 1089 -1000 Weight 85.1 kg Intake: IV 1200 Intake, IV Titration 260 Amount Dextrose 5%-0.45% NaCl 1, 200 000 ml @ 40 mls/hr IV . Q24H MARCELLA Rx#:[id number] Lactated Ringers 1,000 ml 60 @ 20 mls/hr IV .Q24H MARCELLA Rx#:[id number] Oral 222 Output: Chest Tube Drainage 43 Thora-Vent Left Upper 43 Anterior Chest Urine 500 1000 Estimated Blood Loss 50 Other: Voiding Method Urinal Urinal # Voids 1 - Exam General: non toxic, no distress, appears at stated age Derm: warm, dry Head: atraumatic, normocephalic, symmetric Eyes: EOMI, no lid lag, anicteric sclera Mouth: no lip lesion, mucus membranes moist Cardiovascular: S1S2 reg, no murmur, positive posterior tibial pulse bilateral, Lungs: Decreased breath sounds left base, no rhonchi, no rales , no accessory muscle use Abdominal: soft, nontender to palpation, no guarding, no appreciable organomegaly Ext: no gross muscle atrophy, no edema, no contractures Neuro: CN II-XI grossly intact, no focal neuro deficits Psych: Alert, oriented, appropriate affect - Labs CBC & Chem 7: 06/20/18 06:44 06/20/18 06:44 Labs: Abnormal Lab Results - Last 24 Hours (Table) 06/20/18 06/20/18 Range/Units 06:44 06:44 WBC 12.2 H (3.8-10.6) k/uL RBC 3.90 L (4.30-5.90) m/uL Hgb 12.1 L (13.0-17.5) gm/dL Hct 35.9 L (39.0-53.0) % Neutrophils # 9.0 H (1.3-7.7) k/uL Glucose 118 H (74-99) mg/dL Assessment and Plan Plan: Recurrent left-sided pneumothorax s/p left thoracoscopy with staple of apical blebs and mechanical pleurodesis -Discussed with cardiothoracic surgery service -Management per surgeon -Pain control, currently on Dougherty on tramadol, will give 1 dose of Dilaudid 0.5 mg IV now Insomnia Ambien Tobacco abuse -Cessation -Nicotine replacement DVT prophylaxis: Heparin subcutaneous Discussed with: Patient, nursing Anticipated discharge: 06/[address]: Home A total of 35 minutes was spent on the care of this complex patient more than 50 % of the time was spent in counseling and care coordination.
--- NOTE | 2018-06-20 11:05 | P.PN ---
<Regla Genao - Last Filed: 06/20/18 10:56> Subjective Progress Note Date: 06/20/18 Principal diagnosis: Recurrent left-sided spontaneous pneumothorax, discharged from this facility 05/2018 after previous left-sided spontaneous pneumothorax.. Medical history positive for current tobacco dependence, occasional marijuana use, and alcohol use. POD #6 placement of left-sided thoravent by the ER physicians. POD #1 left thoracoscopy with staple of apical blebs and mechanical pleurodesis Patient is currently laying in bed in no acute distress, was sleeping upon arrival to patient's room but when awake does complain of significant pain in his chest tube site and across to his left chest wall. There is edema along left chest wall extending laterally, patient states this has decreased since yesterday. Per nursing staff patient is refusing to use his incentive spirometry at this time. Objective - Vital Signs Vital signs: Vital Signs Temp 96.3 F L 06/20/18 04:00 Pulse 104 H 06/20/18 04:00 Resp 20 06/20/18 04:00 BP 134/88 06/20/18 04:00 Pulse Ox 97 06/20/18 04:00 Intake & Output 06/19/18 06/20/18 06/20/18 18:59 06:59 18:59 Intake Total 1682 Output Total 593 1000 Balance 1089 -1000 Weight 85.1 kg Intake: IV 1200 Intake, IV Titration 260 Amount Dextrose 5%-0.45% NaCl 1, 200 000 ml @ 40 mls/hr IV . Q24H MARCELLA Rx#:[id number] Lactated Ringers 1,000 ml 60 @ 20 mls/hr IV .Q24H MARCELLA Rx#:[id number] Oral 222 Output: Chest Tube Drainage 43 Thora-Vent Left Upper 43 Anterior Chest Urine 500 1000 Estimated Blood Loss 50 Other: Voiding Method Urinal Urinal # Voids 1 - Constitutional General appearance: Present: no acute distress - Respiratory Details: Lungs sounds diminished bilaterally. Respirations even, nonlabored. Currently on room air with oxygen saturation 97%. Patient is refusing to use incentive spirometer but does state that he gets to 2500 mL. Left pleural chest tube present to continuous wall suction, 43 mL serous drainage overnight, 160 mL since surgery, no air leak present. - Cardiovascular Details: S1, S2 present. Regular rate and rhythm. Palpable peripheral pulses bilaterally. No edema present. No calf pain or tenderness noted. - Gastrointestinal Gastrointestinal Comment(s): Abdomen soft, nontender, nondistended. Active bowel sounds 4 quadrants. Tolerating diet. - Genitourinary Genitourinary Comment(s): Continues to void clear, yellow urine. - Integumentary Integumentary Comment(s): Skin is warm and dry with evidence of good perfusion. Dressing over left pleural chest tube site with drainage present, outlined, no increase since outline. - Neurologic Neurologic: Present: CNII-XII intact - Musculoskeletal Musculoskeletal: Present: gait normal, strength equal bilaterally - Psychiatric Psychiatric: Present: A&O x's 3, appropriate affect, intact judgment & insight - Allied health notes Allied health notes reviewed: nursing - Labs CBC & Chem 7: 06/20/18 06:44 06/20/18 06:44 Labs: Abnormal Lab Results - Last 24 Hours (Table) 06/20/18 06/20/18 Range/Units 06:44 06:44 WBC 12.2 H (3.8-10.6) k/uL RBC 3.90 L (4.30-5.90) m/uL Hgb 12.1 L (13.0-17.5) gm/dL Hct 35.9 L (39.0-53.0) % Neutrophils # 9.0 H (1.3-7.7) k/uL Glucose 118 H (74-99) mg/dL - Imaging and Cardiology Chest x-ray: report reviewed, image reviewed Assessment and Plan (1) Pneumothorax, left Current Visit: Yes Status: Acute Code(s): J93.9 - PNEUMOTHORAX, UNSPECIFIED SNOMED Code(s): 913496608 (2) Alcohol use Current Visit: Yes Status: Chronic Priority: Low Code(s): Z78.9 - OTHER SPECIFIED HEALTH STATUS SNOMED Code(s): 921269547 (3) Tobacco dependence Current Visit: Yes Status: Chronic Priority: High Code(s): F17.200 - NICOTINE DEPENDENCE, UNSPECIFIED, UNCOMPLICATED SNOMED Code(s): 37923703 (4) Marijuana use Current Visit: Yes Status: Chronic Code(s): F12.90 - CANNABIS USE, UNSPECIFIED, UNCOMPLICATED SNOMED Code(s): 943754202 Plan: 1. Left pleural chest tube placed to waterseal. Will monitor for air leak. If no air leak present and no pneumothorax on chest x-ray tomorrow morning the likely will discontinue. 2. Chest x-ray in the morning. 3. Pain control with current medication regimen. Limit narcotic use. 4. Encourage incentive spirometry use it 10 times every hour. 5. Patient again counseled regarding the importance of tobacco cessation. 6. Increase activity, ambulate in hallway. 7. GI/DVT prophylaxis. 8. Medical management per primary care service. 9. More recommendations to follow. Time with Patient: Greater than 30 <Shailesh Torres - Last Filed: 06/20/18 14:01> Objective - Vital Signs Vital signs: Vital Signs Temp 97.5 F L 06/20/18 11:20 Pulse 107 H 06/20/18 11:20 Resp 18 06/20/18 11:20 BP 141/106 06/20/18 11:20 Pulse Ox 98 06/20/18 11:20 Intake & Output 06/19/18 06/20/18 06/20/18 18:59 06:59 18:59 Intake Total 1682 Output Total 593 1085 Balance 1089 -1085 Weight 85.1 kg Intake: IV 1200 Intake, IV Titration 260 Amount Dextrose 5%-0.45% NaCl 1, 200 000 ml @ 40 mls/hr IV . Q24H MARCELLA Rx#:[id number] Lactated Ringers 1,000 ml 60 @ 20 mls/hr IV .Q24H MARCELLA Rx#:[id number] Oral 222 Output: Chest Tube Drainage 43 85 Thora-Vent Left Upper 43 85 Anterior Chest Urine 500 1000 Estimated Blood Loss 50 Other: Voiding Method Urinal Urinal # Voids 1 - Labs CBC & Chem 7: 06/20/18 06:44 06/20/18 06:44 Labs: Abnormal Lab Results - Last 24 Hours (Table) 06/20/18 06/20/18 Range/Units 06:44 06:44 WBC 12.2 H (3.8-10.6) k/uL RBC 3.90 L (4.30-5.90) m/uL Hgb 12.1 L (13.0-17.5) gm/dL Hct 35.9 L (39.0-53.0) % Neutrophils # 9.0 H (1.3-7.7) k/uL Glucose 118 H (74-99) mg/dL Assessment and Plan Plan: The patient was seen and examined. I agree with the above assessment and plan. The patient's lung appears to be expanded on x-ray. There is no air leak from the chest tube. We will place it to waterseal today. He does have some swelling associated with the left chest. It does not feel like air to me. He may have an intramuscular hematoma. I would recommend ice compressions and observation for now.
[2018-06-20] MEDS: HYDROmorphone 1 MG/ML 1 ML SYRINGE IVP PRN ×3 (15:08→22:41)
[2018-06-21] MEDS: KETOROLAC 30 MG/ML 1 ML VIAL IVP SCH ×5 (00:17→23:39)
[2018-06-21] MEDS: HEPARIN SODIUM,PORCINE 5,000 UNIT/ML 1 ML VIAL SQ SCH ×4 (00:17→23:40)
[2018-06-21] MEDS: HYDROcodone/APAP 5-325MG 1 EACH TAB PO PRN ×5 (03:02→20:18)
[2018-06-21] MEDS: HYDROmorphone 1 MG/ML 1 ML SYRINGE IVP PRN ×5 (03:02→20:20)
--- NOTE | 2018-06-21 07:08 | XR ---
EXAMINATION TYPE: XR chest 2V DATE OF EXAM: 06/21/2018 HISTORY: pneumothorax. REFERENCE: Previous study dated 06/20/2018. FINDINGS: The left pleural drain remains in place. There continues to be approximately 5% left apical pneumothorax. This is a large slightly from previous. The right lung is clear. Heart size is normal. IMPRESSION: SMALL, PERSISTENT LEFT-SIDED PNEUMOTHORAX.
[2018-06-21] MEDS: traMADol 50 MG TAB PO SCH ×3 (08:38→22:00)
[2018-06-21] MEDS: PANTOPRAZOLE 40 MG TABLET PO SCH ×2 (08:39→18:44)
--- NOTE | 2018-06-21 09:43 | P.PN ---
Subjective Progress Note Date: 06/21/18 Principal diagnosis: Recurrent left-sided spontaneous pneumothorax, discharged from this facility 05/2018 after previous left-sided spontaneous pneumothorax.. Medical history positive for current tobacco dependence, occasional marijuana use, and alcohol use. POD #7 placement of left-sided thoravent by the ER physicians. POD #2 left thoracoscopy with staple of apical blebs and mechanical pleurodesis Patient is currently sitting up in bed in bed in no acute distress. He does state pain in his left chest wall is still present, he is getting a lot of narcotic pain medication. There is edema along left chest wall extending laterally has decreased since yesterday. Chest tube has been to waterseal for 24 hours. He has been ambulating in the hallway. Objective - Vital Signs Vital signs: Vital Signs Temp 97.6 F 06/21/18 05:45 Pulse 79 06/21/18 05:45 Resp 18 06/21/18 05:45 BP 117/74 06/21/18 05:45 Pulse Ox 98 06/21/18 05:45 Intake & Output 06/20/18 06/21/18 06/21/18 18:59 06:59 18:59 Intake Total 200 Output Total 1090 5 Balance -1090 195 Weight 85.1 kg 85 kg Intake: Oral 200 Output: Chest Tube Drainage 90 5 Thora-Vent Left Upper 90 5 Anterior Chest Urine 1000 Other: Voiding Method Urinal # Voids 1 - Constitutional General appearance: Present: cooperative, no acute distress - Respiratory Details: Lungs sounds diminished bilaterally. Respirations even, nonlabored. Currently on room air with oxygen saturation 98%. He is achieving 3250 mL on his incentive spirometry. Left pleural chest tube present to waterseal, 5 mL serous drainage overnight, 100 mL in the last 24 hours, no air leak present. - Cardiovascular Details: S1, S2 present. Regular rate and rhythm. Palpable peripheral pulses bilaterally. No edema present. No calf pain or tenderness noted. - Gastrointestinal Gastrointestinal Comment(s): Abdomen soft, nontender, nondistended. Active bowel sounds 4 quadrants. Tolerating diet. - Genitourinary Genitourinary Comment(s): Continues to void clear, yellow urine. - Integumentary Integumentary Comment(s): Skin is warm and dry with evidence of good perfusion. Dressing over left pleural chest tube site with drainage present, outlined, no increase since outline. - Neurologic Neurologic: Present: CNII-XII intact - Musculoskeletal Musculoskeletal: Present: gait normal, strength equal bilaterally - Psychiatric Psychiatric: Present: A&O x's 3, appropriate affect, intact judgment & insight - Allied health notes Allied health notes reviewed: nursing - Labs CBC & Chem 7: 06/20/18 06:44 06/20/18 06:44 - Imaging and Cardiology Chest x-ray: report reviewed, image reviewed Assessment and Plan (1) Pneumothorax, left Current Visit: Yes Status: Acute Code(s): J93.9 - PNEUMOTHORAX, UNSPECIFIED SNOMED Code(s): 570061430 (2) Alcohol use Current Visit: Yes Status: Chronic Priority: Low Code(s): Z78.9 - OTHER SPECIFIED HEALTH STATUS SNOMED Code(s): 714836723 (3) Tobacco dependence Current Visit: Yes Status: Chronic Priority: High Code(s): F17.200 - NICOTINE DEPENDENCE, UNSPECIFIED, UNCOMPLICATED SNOMED Code(s): 41953513 (4) Marijuana use Current Visit: Yes Status: Chronic Code(s): F12.90 - CANNABIS USE, UNSPECIFIED, UNCOMPLICATED SNOMED Code(s): 316912386 Plan: 1. Left pleural chest tube to waterseal for greater than 24 hours. No air leak present. Will discontinue chest tube. 2. Chest x-ray 2 hours after chest tube removal. 3. Pain control per primary care service. Would recommend limiting narcotic usage. 4. Encourage incentive spirometry use 10 times every hour. 5. Patient counseled regarding the importance of tobacco cessation. 6. Increase activity, ambulate in hallway. 7. GI/DVT prophylaxis. 8. Medical management per primary care service. 9. If repeat x-ray stable patient may be discharged home later today from our standpoint. Would discharge on alternating Tylenol and Motrin for pain control. If primary care service feels the patient does need narcotics would recommend 3 days of tramadol only. Time with Patient: Greater than 30
--- NOTE | 2018-06-21 10:36 | P.PN ---
Subjective Progress Note Date: 06/21/18 Principal diagnosis: Left pneumothorax Patient is still having pain in the left-sided of the chest. He stated if cleared for discharge today he prefers not to go home until he makes sure that everything will stay okay for him. Objective - Vital Signs Vital signs: Vital Signs Temp 97.6 F 06/21/18 05:45 Pulse 79 06/21/18 05:45 Resp 18 06/21/18 05:45 BP 117/74 06/21/18 05:45 Pulse Ox 98 06/21/18 05:45 Intake & Output 06/20/18 06/21/18 06/21/18 18:59 06:59 18:59 Intake Total 200 200 Output Total 1090 5 Balance -1090 195 200 Weight 85.1 kg 85 kg Intake: Oral 200 200 Output: Chest Tube Drainage 90 5 Thora-Vent Left Upper 90 5 Anterior Chest Urine 1000 Other: Voiding Method Urinal # Voids 1 - Exam General: non toxic, no distress, appears at stated age Derm: warm, dry Head: atraumatic, normocephalic, symmetric Eyes: EOMI, no lid lag, anicteric sclera Mouth: no lip lesion, mucus membranes moist Cardiovascular: S1S2 reg, no murmur, positive posterior tibial pulse bilateral, Lungs: Decreased breath sounds left base, no rhonchi, no rales , no accessory muscle use Abdominal: soft, nontender to palpation, no guarding, no appreciable organomegaly Ext: no gross muscle atrophy, no edema, no contractures Neuro: CN II-XI grossly intact, no focal neuro deficits Psych: Alert, oriented, appropriate affect - Labs CBC & Chem 7: 06/20/18 06:44 06/20/18 06:44 Assessment and Plan Plan: Recurrent left-sided pneumothorax s/p left thoracoscopy with staple of apical blebs and mechanical pleurodesis -Plan to discontinue chest tube today -Management per surgeon -Pain control, currently on toradol, norco, tramadol, as well as Dilaudid 0.5 mg IV prn. Insomnia Ambien Tobacco abuse -Cessation -Nicotine replacement DVT prophylaxis: Heparin subcutaneous Discussed with: Patient, nursing Anticipated discharge: 06/[address]: Home A total of 35 minutes was spent on the care of this complex patient more than 50 % of the time was spent in counseling and care coordination.
--- NOTE | 2018-06-21 16:25 | XR ---
EXAMINATION TYPE: XR chest 2V DATE OF EXAM: 06/21/2018 COMPARISON: Prior chest same date earlier time HISTORY: Post chest tube removal TECHNIQUE: Frontal and lateral views of the chest are obtained. FINDINGS: There is no focal air space opacity, pleural effusion, or pneumothorax seen. The cardiac silhouette size is within normal limits. The osseous structures are intact. Increased soft tissue d ensity over the left chest is again noted is indeterminate, correlate for hematoma, chest tube has be en removed in the interval, minimal subcutaneous emphysema. Lateral exam shows probable pseudotumor. IMPRESSION: No evident complication status post chest tube removal, additional findings above, follo w-up suggested.
[2018-06-22] MEDS: HYDROmorphone 1 MG/ML 1 ML SYRINGE IVP PRN ×2 (01:09→09:57)
[2018-06-22] MEDS: HYDROcodone/APAP 5-325MG 1 EACH TAB PO PRN (01:09)
[2018-06-22] MEDS: KETOROLAC 30 MG/ML 1 ML VIAL IVP SCH (06:16)
[2018-06-22 06:39] VITALS: BP 118/80; PULSE 79; RESP 20; TEMP 97.6
--- NOTE | 2018-06-22 09:42 | P.DS ---
Providers Date of admission: 06/14/18 18:47 Expected date of discharge: 06/22/18 Attending physician: Ezekiel Liu MD Consults: 06/14/18 18:39 Consult Physician Routine Consulting Provider: Thomas Gordon Consult Reason/Comments: pneumothorax Do you want consulting provider notified?: Yes Primary care physician: Sarah Guadarrama MD Hospital Course: 27-year-old male presented to the hospital 1 months ago with left-sided pneumothorax, that was treated conservatively. About a month ago patient sustained a fall suspected in the alcoholic state. Subsequently he developed some chest pain on the left side as well as shortness of breath. He was diagnosed with left-sided pneumothorax. At that time he had thoravent chest tube placed with complete resolution of pneumothorax. After successful removal of the chest tube he was discharged home in stable condition. He was supposed to follow-up after that with cardiothoracic surgery in the office which apparently he never did. Over the last few days he starts developing more left- sided chest pain and shortness of breath. This time pain was more severe than usual with a previous episode and was also at the level of his diaphragm. In the emergency department he was found to have quite a large pneumothorax on the left side at least much larger than the last. Chest tube was inserted little bit higher and had to be repositioned and connected to suction. Subsequently repeat chest x-ray show resolution of his pneumothorax. Patient continues to smoke and drink. He was evaluated by cardiothoracic surgery who did a left thoracoscopy with staple of apical blebs and mechanical pleurodesis. The chest tube was inserted after that. Later the chest tube was water sealed and there was no air leak, so the chest tube was taken out. Patient tolerated the procedure well. This pain was treated with narcotics and anti-inflammatory medications. When talking to patient today he is interested in quitting smoking, wanted to try Chantix for that. A prescription will be provided. Short-term treatment with [place] will be provided as well. Today he'll be discharged home in stable condition. He was instructed to follow-up with cardiothoracic surgery as well as his primary care physician in the office. Plan - Discharge Summary Discharge Rx Participant: No New Discharge Prescriptions: New HYDROcodone/APAP 5-325MG [[place] 5-325] 1 each PO Q4HR PRN #30 tab PRN Reason: Moderate Pain Varenicline Tartrate [Chantix Starter Pack] 0.5 mg PO DIRECTED #53 tab Discharge Medication List HYDROcodone/APAP 5-325MG [[place] 5-325] 1 each PO Q4HR PRN #30 tab 06/22/18 [Rx] Varenicline Tartrate [Chantix Starter Pack] 0.5 mg PO DIRECTED #53 tab [Rx] Follow up Appointment(s)/Referral(s): Sarah Guadarrama MD [Primary Care Provider] - 06/24/18 2:00 pm Meet Guerra MD [STAFF PHYSICIAN] - 2 Weeks Ambulatory/Diagnostic Orders: XR chest 2V [RAD.AMB] Facility: [facility], Location: Rad Xray [facility] Patient Instructions/Handouts: Spontaneous Pneumothorax (DC), How to Stop Smoking (DC) Activity/Diet/Wound Care/Special Instructions: Do not remove dressing from chest tube site for 48 hours (Saturday, June 23, 2018). After removal, may shower daily. No tub baths, hot tubs for 2 weeks. No heavy lifting for 2 weeks. Any fever over 101F call surgery office. Drainage from chest tube site is normal. Reinforce dressing for the first 48 hours then dressing change as needed as long as there is drainage. Patient to get chest xray at the hospital prior to appointment with Dr. Guerra.
[2018-06-22] MEDS: HEPARIN SODIUM,PORCINE 5,000 UNIT/ML 1 ML VIAL SQ SCH (09:56)
[2018-06-22] MEDS: traMADol 50 MG TAB PO SCH (09:56)
[2018-06-22] MEDS: PANTOPRAZOLE 40 MG TABLET PO SCH (09:56)
== END 2018-06-22 12:50 | disposition home or self-care (01) | DRG 164 ==
LOC: EC 16:04 → 6SEL 18:47 → 4MS4W 06-20 17:50
PROVIDERS: ADMIT Hospitalist; ATTEND Hospitalist
PROC: 0W9B30Z Drainage of Left Pleural Cavity with Drainage Device, Percutaneous Approach (ICD-10-PCS; principal; 2018-06-14)
PROC: 0BQG4ZZ Repair Left Upper Lung Lobe, Percutaneous Endoscopic Approach (ICD-10-PCS; 2018-06-19)
PROC: 0W9B40Z Drainage of Left Pleural Cavity with Drainage Device, Percutaneous Endoscopic Approach (ICD-10-PCS; 2018-06-19)
PROC: 0B5P4ZZ Destruction of Left Pleura, Percutaneous Endoscopic Approach (ICD-10-PCS; 2018-06-19)
DX: J93.83 Other pneumothorax (principal); J90 Pleural effusion, not elsewhere classified; F17.210 Nicotine dependence, cigarettes, uncomplicated; W10.9XXD Fall (on) (from) unspecified stairs and steps, subsequent encounter; Z80.42 Family history of malignant neoplasm of prostate; Z87.09 Personal history of other diseases of the respiratory system; Z56.0 Unemployment, unspecified; Z71.6 Tobacco abuse counseling; J43.8 Other emphysema
CPT/HCPCS: 32551; 71045; 71046; 71047; 71250; 80048; 85025; 88307; 96374; 96376; 99285

== ENCOUNTER 2018-07-04 17:42 | Emergency (ER) | payer OTHER ==
[2018-07-04] MEDS ORDERED: LIDOCAINE 1% INJ 10MG/ML (20 ML MDV) SQ ONE (18:10)
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
[2018-07-04] MEDS ORDERED: NICOTINE 21MG/24HR PATCH TRANSDERM STA (19:02)
--- NOTE | 2018-07-04 19:02 | XR ---
EXAMINATION TYPE: XR forearm LT DATE OF EXAM: 07/04/2018 COMPARISON: NONE HISTORY: Arm pain laceration TECHNIQUE: 2 views FINDINGS: Elbow joint and wrist joint appear intact. I see no fracture nor dislocation. Soft tissues show some deformity anteriorly in the mid forearm consistent with laceration. I see no definite forei gn body. IMPRESSION: No fracture. Mild soft tissue deformity.
[2018-07-04] MEDS ORDERED: IBUPROFEN 600 MG TAB PO STA (19:17)
[2018-07-04] MEDS ORDERED: ACETAMINOPHEN TAB 325 MG TAB PO STA (22:51)
[2018-07-05] MEDS ORDERED: IBUPROFEN 800 MG TAB PO STA (04:45)
[2018-07-05 04:53] LABS: Amphetamine Screen,Urine Not Detected (NotDetected); Barbiturate Screen,Urine Not Detected (NotDetected); Benzodiazepines Screen,Urine Not Detected (NotDetected); Cocaine Screen,Urine Not Detected (NotDetected); Methadone Screen, Urine Not Detected (NotDetected); Opiate Screen,Urine Not Detected (NotDetected); Oxycodone Screen, Urine Not Detected (NotDetected); Phencyclidine Screen,Urine Not Detected (NotDetected); Tricyclic Antidepressant,Urine Not Detected (NotDetected); Urn Cannabinoid Scrn Detected (NotDetected)
[2018-07-05] MEDS ORDERED: ACETAMINOPHEN TAB 325 MG TAB PO STA ×2 (06:34→17:36)
[2018-07-05] MEDS ORDERED: LORazepam 1 MG TAB PO STA (06:55)
[2018-07-05 07:14] LABS: Basophils # (A) 0.1 k/uL (0-0.2); Basophils % (A) 1 %; Eosinophils # (A) 0.8 k/uL (0-0.7); Eosinophils % (A) 7 %; HCT 37.2 % (39.0-53.0); HGB 12.5 gm/dL (13.0-17.5); Lymphocytes % (A) 18 %; MCH 30.5 pg (25.0-35.0); MCHC 33.5 g/dL (31.0-37.0); MCV 91.2 fL (80.0-100.0); Monocytes # (A) 0.9 k/uL (0-1.0); Monocytes % (A) 8 %; Neutrophils # (A) 7.6 k/uL (1.3-7.7); Neutrophils % (A) 66 %; Platelet Count 486 k/uL (150-450); RBC 4.08 m/uL (4.30-5.90); RDW 13.2 % (11.5-15.5); WBC 11.5 k/uL (3.8-10.6)
[2018-07-05 07:30] LABS: Anion Gap 10 mmol/L; Blood Urea Nitrogen 19 mg/dL (9-20); Calcium 9.5 mg/dL (8.4-10.2); Carbon Dioxide 27 mmol/L (22-30); Chloride 103 mmol/L (98-107); Glucose 99 mg/dL (74-99); Potassium 4.4 mmol/L (3.5-5.1); Sodium 140 mmol/L (137-145)
[2018-07-05] MEDS ORDERED: HYDROcodone/APAP 5-325MG 1 EACH TAB PO STA (07:42)
[2018-07-05 09:07] LABS: Appearance,Urine Cloudy (Clear); Bilirubin,Urine Negative (Negative); Blood,Urine Negative (Negative); Calcium Oxalate Crystals,Urine Few /hpf; Color,Urine Yellow; Glucose,Urine (UA) Negative (Negative); Ketones,Urine Trace (Negative); Leukocyte Esterase,Urine Negative (Negative); Mucus,Urine Many /hpf; Nitrite,Urine Negative (Negative); Protein,Urine 1+ (Negative); RBC,Urine 1 /hpf (0-5); Specific Gravity,Urine 1.027 (1.001-1.035); Urobilinogen,Urine <2.0 mg/dL (<2.0); WBC,Urine 4 /hpf (0-5)
[2018-07-05] MEDS: KETOROLAC 60 MG/2 ML VIAL IM STA (11:45)
[2018-07-05] MEDS ORDERED: KETOROLAC 30 MG/ML 1 ML VIAL IM STA (21:51)
[2018-07-06] MEDS ORDERED: KETOROLAC 60 MG/2 ML VIAL IM STA (11:25)
[2018-07-06] MEDS: ACETAMINOPHEN TAB 325 MG TAB PO PRN ×2 (14:15→20:52)
[2018-07-06] MEDS: KETOROLAC 60 MG/2 ML VIAL IM STA (17:52)
[2018-07-06] MEDS: KETOROLAC 30 MG/ML 1 ML VIAL IM PRN (22:44)
[2018-07-07 01:52] VITALS: RESP 16
[2018-07-07] MEDS: ACETAMINOPHEN TAB 325 MG TAB PO PRN ×2 (04:20→13:50)
[2018-07-07] MEDS: KETOROLAC 30 MG/ML 1 ML VIAL IM PRN (12:02)
[2018-07-07] MEDS ORDERED: ACETAMINOPHEN TAB 325 MG TAB PO PRN (14:42)
[2018-07-07] MEDS ORDERED: KETOROLAC 30 MG/ML 1 ML VIAL IM PRN (14:42)
[2018-07-07 16:09] VITALS: BP 129/72; PULSE 84; TEMP 97
== END 2018-07-07 18:32 ==
LOC: EC 17:42
DX: S51.812A Laceration without foreign body of left forearm, initial encounter (principal); F32.9 Major depressive disorder, single episode, unspecified; Z87.891 Personal history of nicotine dependence; X78.9XXA Intentional self-harm by unspecified sharp object, initial encounter
CPT/HCPCS: 12001; 36415; 80048; 80306; 81001; 82075; 85025; 96372; 99285

== ENCOUNTER → 2018-07-24 | Outpatient (CLI) | payer OTHER ==
--- NOTE | 2018-07-24 15:11 | XR ---
EXAMINATION TYPE: XR chest 2V DATE OF EXAM: 07/24/2018 COMPARISON: 06/21/2018 HISTORY: 27-year-old male with VATS surgery 3-4 weeks ago for pneumothorax. TECHNIQUE: Frontal and lateral views FINDINGS: Heart normal size. Aorta and pulmonary vasculature within normal limits. Strandy atelectasis at the r ight base. No consolidation. Trace pleural effusions are suggested on the lateral view. No pneumothor ax. IMPRESSION: Trace effusion suggested on the lateral view. Additional strandy atelectasis at the right base. No ap preciable pneumothorax.
== END | disposition home or self-care (01) ==
LOC: RADXRMAIN 09:43
PROVIDERS: ATTEND Thoracic Surgery (Cardiothoracic Vascular Surgery)
DX: J98.11 Atelectasis (principal)
CPT/HCPCS: 71046

== ENCOUNTER 2018-08-06 19:16 | Emergency (ER) | payer OTHER ==
--- NOTE | 2018-08-06 19:43 | ED ---
Psych HPI - General Chief Complaint: Psychiatric Symptoms Stated Complaint: Mental Health Time Seen by Provider: 08/06/18 19:32 Source: patient, family Mode of arrival: ambulatory - History of Present Illness Initial Comments: 27-year-old male patient presents to the emergency department today accompanied by mother for evaluation of increased depression and suicidal ideation. Patient is reluctant to speak and mother provides most of history. Mother reports that he has had increase in alcohol use. States that he has been increasingly depressed and today stated "I did ask the on this earth and I don' t know why I'm here". Parent states that he has history of suicide attempt including attempting to cut himself with a knife and shoot himself with a gun. Patient does admit to drinking alcohol today. He admits to marijuana use. Denies any current injuries or physical concerns. Patient denies any recent rash , fever, chills, shortness breath, chest pain, abdominal pain, nausea, vomiting , diarrhea, constipation, back pain, numbness, tingling, dizziness, weakness, hematuria, dysuria, urinary urgency, urinary frequency, headache, visual changes , or any other complaints. - Related Data Home Medications Medication Instructions Recorded Confirmed Disulfiram [Antabuse] 250 mg PO DAILY 08/06/18 08/06/18 Gabapentin [Neurontin] 300 mg PO TID 08/06/18 08/06/18 Ibuprofen [Motrin] 600 mg PO QID PRN 08/06/18 08/06/18 Methocarbamol [Robaxin-750] 750 mg PO QID PRN 08/06/18 08/06/18 QUEtiapine [SEROquel] 200 mg PO BID 08/06/18 08/06/18 traZODone HCL [Desyrel] 100 mg PO HS 08/06/18 08/06/18 Allergies Allergy/AdvReac Type Severity Reaction Status Date / Time No Known Allergies Allergy Verified 08/06/18 19:38 Review of Systems ROS Statement: Those systems with pertinent positive or pertinent negative responses have been documented in the HPI. ROS Other: All systems not noted in ROS Statement are negative. Past Medical History Past Medical History: No Reported History Additional Past Medical History / Comment(s): Patient reports one seizure with no treatment or known cause, 04-23-2018 fx ribs 9-12 on let/pneumo -left chest Thoravent placed on 06/02/2018. History of Any Multi-Drug Resistant Organisms: None Reported Past Surgical History: Hernia Repair Additional Past Surgical History / Comment(s): Thoravent placed 06-02-18 for pneumothorax. hydrocele, rt shoulder sx, inguinal hernia repair as (not sure which side) Past Anesthesia/Blood Transfusion Reactions: No Reported Reaction Past Psychological History: Bipolar, Depression Smoking Status: Former smoker Past Alcohol Use History: Abuse, Daily, Heavy Past Drug Use History: Marijuana - Past Family History Mother Family Medical History: No Reported History Father Family Medical History: Cancer, Prostate Disorder Additional Family Medical History / Comment(s): prostate cancer General Exam Limitations: no limitations General appearance: alert, in no apparent distress, other (This is a well- developed, well-nourished adult male patient in no acute distress. Vital signs upon presentation are temperature 97.6F, pulse 112, respirations 22, blood pressure 137/95, pulse ox 98% on room air.) Eye exam: Present: normal appearance, PERRL, EOMI. Absent: scleral icterus, conjunctival injection, periorbital swelling ENT exam: Present: normal exam, normal oropharynx, mucous membranes moist Respiratory exam: Present: normal lung sounds bilaterally. Absent: respiratory distress, wheezes, rales, rhonchi, stridor Cardiovascular Exam: Present: regular rate, normal rhythm, normal heart sounds. Absent: systolic murmur, diastolic murmur, rubs, gallop, clicks GI/Abdominal exam: Present: soft, normal bowel sounds. Absent: distended, tenderness, guarding, rebound, rigid Neurological exam: Present: alert, oriented X3, CN II-XII intact Psychiatric exam: Present: depressed, flat affect, suicidal ideation. Absent: homicidal ideation Skin exam: Present: warm, dry, intact, normal color. Absent: rash Course Vital Signs 08/06/18 08/07/18 19:24 00:23 Temperature 97.6 F 98.3 F Pulse Rate 112 H 82 Respiratory 22 16 Rate Blood Pressure 137/95 117/67 O2 Sat by Pulse 98 95 Oximetry Medical Decision Making - Medical Decision Making 27-year-old male patient presented to the emergency department today brought in by mother for evaluation of suicidal ideation. Patient had made statements which made her believed that he was suicidal. Patient was intoxicated. Once sober he was seen and evaluated by emergency psychiatric services. He denied any suicidal or homicidal ideation to them. She did speak to the psychiatrist and it is felt that he is not a risk to himself and does not meet inpatient criteria. He'll be discharged home at this time to follow-up outpatient with both mental health services and alcohol rehabilitative services. Return parameters were discussed in detail. He verbalized understanding and agreed with this plan. Disposition Clinical Impression: Depression, Alcohol abuse Disposition: HOME SELF-CARE Condition: Good Instructions: Depression (ED), Abuse of Alcohol (ED) Additional Instructions: Follow-up with outpatient mental health services. Follow-up with outpatient alcohol rehabilitative services. Return immediately for any new, worsening, or concerning symptoms. Is patient prescribed a controlled substance at d/c from ED?: No Referrals: Sarah Guadarrama MD [Primary Care Provider] - 1-2 days Time of Disposition: 02:17
[2018-08-07 02:46] VITALS: BP 118/74; PULSE 112; RESP 14; TEMP 97.8
== END 2018-08-07 02:40 | disposition home or self-care (01) ==
LOC: EC 19:16
DX: F31.30 Bipolar disorder, current episode depressed, mild or moderate severity, unspecified (principal); F10.129 Alcohol abuse with intoxication, unspecified; R45.851 Suicidal ideations; F12.90 Cannabis use, unspecified, uncomplicated; Z87.891 Personal history of nicotine dependence; Z79.899 Other long term (current) drug therapy; Z87.09 Personal history of other diseases of the respiratory system; Z99.11 Dependence on respirator [ventilator] status
CPT/HCPCS: 99285

== ENCOUNTER 2019-06-20 17:35 | Emergency (ER) | payer OTHER ==
[2019-06-20 17:41] VITALS: BP 159/91; PULSE 85; RESP 18; TEMP 97.5
--- NOTE | 2019-06-20 18:14 | XR ---
EXAMINATION TYPE: XR ribs RT w pa chest xray DATE OF EXAM: 06/20/2019 COMPARISON: Chest x-ray 07/24/2018 HISTORY: Rib pain. Coughing TECHNIQUE: 5 views FINDINGS: Heart and mediastinum are normal. Lungs are clear. The right ribs appear intact without sig n of pleural effusion or pneumothorax. I see no rib fracture. IMPRESSION: No active cardiopulmonary disease. Normal right ribs. No change.
[2019-06-20] MEDS ORDERED: ACET/COD 300 MG/30 MG STARTER PACK 6 TAB BTL PO STA (18:24)
--- NOTE | 2019-06-20 18:24 | ED ---
General Adult HPI - General Chief complaint: Recheck/Abnormal Lab/Rx Stated complaint: Rib Pain Time Seen by Provider: 06/20/19 17:45 Source: patient, RN notes reviewed Mode of arrival: ambulatory Limitations: no limitations - History of Present Illness Initial comments: 28-year-old male presents emergency Department with chief complaint of right- sided rib pain. Patient states that he has some discomfort states that he cough and a pop and severe pain on the right lateral anterior ribs. He has no abdominal complaints. He states he does not feel short of breath she just has pain with deep inspiration. Patient states he did fall approximately one year ago left-sided rib fractures and antacids tapering of his lung. Patient has no other history of lung disease. - Related Data Home Medications Medication Instructions Recorded Confirmed Disulfiram [Antabuse] 250 mg PO DAILY 08/06/18 08/06/18 Gabapentin [Neurontin] 300 mg PO TID 08/06/18 08/06/18 Ibuprofen [Motrin] 600 mg PO QID PRN 08/06/18 08/06/18 Methocarbamol [Robaxin-750] 750 mg PO QID PRN 08/06/18 08/06/18 QUEtiapine [SEROquel] 200 mg PO BID 08/06/18 08/06/18 traZODone HCL [Desyrel] 100 mg PO HS 08/06/18 08/06/18 Allergies Allergy/AdvReac Type Severity Reaction Status Date / Time No Known Allergies Allergy Verified 06/20/19 17:41 Review of Systems ROS Statement: Those systems with pertinent positive or pertinent negative responses have been documented in the HPI. ROS Other: All systems not noted in ROS Statement are negative. Past Medical History Past Medical History: No Reported History Additional Past Medical History / Comment(s): Patient reports one seizure 04/30/17 with no treatment or known cause, 04-23-2018 fx ribs 9-12 on let/pneumo -left chest Thoravent placed on 06/02/2018. History of Any Multi-Drug Resistant Organisms: None Reported Past Surgical History: Hernia Repair Additional Past Surgical History / Comment(s): Thoravent placed 06-02-18 for pneumothorax. hydrocele, rt shoulder sx, inguinal hernia repair as (not sure which side) Past Anesthesia/Blood Transfusion Reactions: No Reported Reaction Past Psychological History: Bipolar, Depression Smoking Status: Current every day smoker Past Alcohol Use History: Occasional Past Drug Use History: Marijuana - Past Family History Mother Family Medical History: No Reported History Father Family Medical History: Cancer, Prostate Disorder Additional Family Medical History / Comment(s): prostate cancer General Exam Limitations: no limitations General appearance: alert, in no apparent distress Head exam: Present: atraumatic, normocephalic, normal inspection Neck exam: Present: normal inspection. Absent: tenderness, meningismus, lymphadenopathy Respiratory exam: Present: normal lung sounds bilaterally, chest wall tenderness (Moderate right anterior to lateral). Absent: respiratory distress, wheezes, rales, rhonchi, stridor Cardiovascular Exam: Present: regular rate, normal rhythm, normal heart sounds. Absent: systolic murmur, diastolic murmur, rubs, gallop, clicks GI/Abdominal exam: Present: soft, normal bowel sounds. Absent: distended, tenderness, guarding, rebound, rigid Course Vital Signs 06/20/19 17:39 Temperature 97.5 F L Pulse Rate 85 Respiratory 18 Rate Blood Pressure 159/91 O2 Sat by Pulse 99 Oximetry Medical Decision Making - Medical Decision Making 28-year-old male presented for right-sided rib pain. X-rays were obtained which shows no acute abnormality there is no redness of pneumothorax, pleural effusion or rib fracture. Disposition Clinical Impression: Abdominal pain Disposition: HOME SELF-CARE Condition: Stable Instructions (If sedation given, give patient instructions): Chest Wall Pain (ED) Additional Instructions: Please return to the Emergency Department if symptoms worsen or any other concerns. Is patient prescribed a controlled substance at d/c from ED?: No Referrals: Sarah Guadarrama MD [Primary Care Provider] - 1-2 days Time of Disposition: 18:24
== END 2019-06-20 18:35 | disposition home or self-care (01) ==
LOC: EC 17:35
DX: R10.9 Unspecified abdominal pain (principal); R05 Cough; R07.1 Chest pain on breathing; R07.81 Pleurodynia; R56.9 Unspecified convulsions; F31.9 Bipolar disorder, unspecified; F17.200 Nicotine dependence, unspecified, uncomplicated; Z87.09 Personal history of other diseases of the respiratory system; Z87.81 Personal history of (healed) traumatic fracture; Z79.899 Other long term (current) drug therapy
CPT/HCPCS: 99283

== ENCOUNTER 2021-11-14 13:19 | Emergency (ER) | payer OTHER ==
--- NOTE | 2021-11-14 14:01 | XR ---
EXAMINATION TYPE: XR chest 2V DATE OF EXAM: 11/14/2021 COMPARISON: Chest x-ray June 20, 2019 HISTORY: Cough and congestion. Shortness of breath. TECHNIQUE: Frontal and lateral views of the chest are obtained. FINDINGS: There is no suspicious new focal air space opacity, pleural effusion, or pneumothorax seen . The cardiac silhouette size remains within normal limits. The osseous structures are intact. IMPRESSION: No acute pulmonary process. No significant change from prior.
[2021-11-14 14:22] VITALS: BP 128/88; PULSE 107; RESP 20; TEMP 98
--- NOTE | 2021-11-14 14:22 | ED ---
General Adult HPI - General Stated complaint: cough Time Seen by Provider: 11/14/21 14:00 Source: patient, RN notes reviewed Mode of arrival: ambulatory Limitations: no limitations - History of Present Illness Initial comments: 31-year-old male presents emergency Department with chief complaint of cough congestion. Patient states started over the last 2 days. Patient denies any fevers or chills. Patient states his symptoms and nonproductive cough mild nasal congestion. Patient denies any sick contacts. Denies any nausea and diarrhea constipation. Patient's tried multiple [id number] cough and cold like symptoms. Patient had minimal relief. - Related Data Home Medications Medication Instructions Recorded Confirmed Disulfiram [Antabuse] 250 mg PO DAILY 08/06/18 08/06/18 Gabapentin [Neurontin] 300 mg PO TID 08/06/18 08/06/18 Ibuprofen [Motrin] 600 mg PO QID PRN 08/06/18 08/06/18 Methocarbamol [Robaxin-750] 750 mg PO QID PRN 08/06/18 08/06/18 QUEtiapine [SEROquel] 200 mg PO BID 08/06/18 08/06/18 traZODone HCL [Desyrel] 100 mg PO HS 08/06/18 08/06/18 Previous Rx's Medication Instructions Recorded Benzonatate [Tessalon Perles] 100 mg PO TID PRN #15 capsule 11/14/21 Allergies Allergy/AdvReac Type Severity Reaction Status Date / Time No Known Allergies Allergy Verified 11/14/21 14:22 Review of Systems ROS Statement: Those systems with pertinent positive or pertinent negative responses have been documented in the HPI. ROS Other: All systems not noted in ROS Statement are negative. Past Medical History Past Medical History: No Reported History Additional Past Medical History / Comment(s): Patient reports one seizure 04/30/17 with no treatment or known cause, 04-23-2018 fx ribs 9-12 on let/pneumo -left chest Thoravent placed on 06/02/2018. History of Any Multi-Drug Resistant Organisms: None Reported Past Surgical History: Hernia Repair Additional Past Surgical History / Comment(s): Thoravent placed 06-02-18 for pneumothorax. hydrocele, rt shoulder sx, inguinal hernia repair as infant(not sure which side) Past Anesthesia/Blood Transfusion Reactions: No Reported Reaction Past Psychological History: Bipolar, Depression Past Alcohol Use History: Occasional Past Drug Use History: Marijuana - Past Family History Mother Family Medical History: No Reported History Father Family Medical History: Cancer, Prostate Disorder Additional Family Medical History / Comment(s): prostate cancer General Exam Limitations: no limitations General appearance: alert, in no apparent distress Head exam: Present: atraumatic, normocephalic, normal inspection Eye exam: Present: normal appearance, PERRL, EOMI. Absent: scleral icterus, conjunctival injection, periorbital swelling ENT exam: Present: normal exam, normal oropharynx, mucous membranes moist Neck exam: Present: normal inspection, full ROM. Absent: tenderness, meningismus, lymphadenopathy Respiratory exam: Present: normal lung sounds bilaterally. Absent: respiratory distress, wheezes, rales, rhonchi, stridor Cardiovascular Exam: Present: regular rate, normal rhythm, normal heart sounds. Absent: systolic murmur, diastolic murmur, rubs, gallop, clicks Neurological exam: Present: alert, oriented X3 Skin exam: Present: warm, dry, intact, normal color. Absent: rash Course Vital Signs 11/14/21 14:18 Temperature 98.0 F Pulse Rate 107 H Respiratory 20 Rate Blood Pressure 128/88 O2 Sat by Pulse 95 Oximetry Medical Decision Making - Medical Decision Making Chest x-rays unremarkable. Patient is COVID-19 positive. Patient discharged in stable condition return parameters were discussed. - Lab Data Lab Results 11/14/21 Range/Units 14:26 Coronavirus (PCR) Detected A (Not Detectd) Disposition Clinical Impression: COVID-19 Disposition: HOME SELF-CARE Condition: Stable Instructions (If sedation given, give patient instructions): Coronavirus Disease 2019 (COVID-19) Additional Instructions: Please return to the Emergency Department if symptoms worsen or any other concerns. Prescriptions: Benzonatate [Tessalon Perles] 100 mg PO TID PRN #15 capsule PRN Reason: Cough Is patient prescribed a controlled substance at d/c from ED?: No Referrals: None,Stated [REFERRING] - 1-2 days Time of Disposition: 14:53
== END 2021-11-14 15:07 | disposition home or self-care (01) ==
LOC: EC 13:19
DX: U07.1 COVID-19 (principal); F31.9 Bipolar disorder, unspecified; F12.90 Cannabis use, unspecified, uncomplicated; Z79.1 Long term (current) use of non-steroidal anti-inflammatories (NSAID); Z79.899 Other long term (current) drug therapy
CPT/HCPCS: 71046; 87635; 99283

== ENCOUNTER 2022-03-27 03:53 | Emergency (ER) | payer OTHER ==
[2022-03-27 04:00] VITALS: BP 136/92; PULSE 74; RESP 20; TEMP 97.5
[2022-03-27] MEDS ORDERED: ACET/COD 300 MG/30 MG STARTER PACK 6 TAB BTL PO STA (04:16)
[2022-03-27] MEDS ORDERED: AMOXIC-POT CLAV 875MG STARTER PACK 2 TAB BTL PO STA (04:16)
--- NOTE | 2022-03-27 04:18 | ED ---
ENT HPI - General Chief complaint: Dental/Oral Stated complaint: dental pain Time Seen by Provider: 03/27/22 04:02 Source: patient Mode of arrival: ambulatory Limitations: no limitations - Related Data Home Medications Medication Instructions Recorded Confirmed Disulfiram [Antabuse] 250 mg PO DAILY 08/06/18 08/06/18 Gabapentin [Neurontin] 300 mg PO TID 08/06/18 08/06/18 Ibuprofen [Motrin] 600 mg PO QID PRN 08/06/18 08/06/18 Methocarbamol [Robaxin-750] 750 mg PO QID PRN 08/06/18 08/06/18 QUEtiapine [SEROquel] 200 mg PO BID 08/06/18 08/06/18 traZODone HCL [Desyrel] 100 mg PO HS 08/06/18 08/06/18 Previous Rx's Medication Instructions Recorded Benzonatate [Tessalon Perles] 100 mg PO TID PRN #15 capsule 11/14/21 Amoxic-Pot Clav 875-125Mg 1 tab PO Q12HR #20 tablet 03/27/22 [Augmentin 875-125] Allergies Allergy/AdvReac Type Severity Reaction Status Date / Time No Known Allergies Allergy Verified 03/27/22 04:00 Review of Systems ROS Statement: Those systems with pertinent positive or pertinent negative responses have been documented in the HPI. ROS Other: All systems not noted in ROS Statement are negative. Past Medical History Past Medical History: Hypertension Additional Past Medical History / Comment(s): Patient reports one seizure 04/30/17 with no treatment or known cause, 04-23-2018 fx ribs 9-12 on let/pneumo -left chest Thoravent placed on 06/02/2018. History of Any Multi-Drug Resistant Organisms: None Reported Past Surgical History: Hernia Repair, Orthopedic Surgery Additional Past Surgical History / Comment(s): Thoravent placed 06-02-18 for pneumothorax. hydrocele, rt shoulder sx, inguinal hernia repair as infant(not sure which side) Past Anesthesia/Blood Transfusion Reactions: No Reported Reaction Past Psychological History: Bipolar, Depression Smoking Status: Current every day smoker Past Alcohol Use History: Occasional Past Drug Use History: Marijuana - Past Family History Mother Family Medical History: No Reported History Father Family Medical History: Cancer, Prostate Disorder Additional Family Medical History / Comment(s): prostate cancer General Exam Limitations: no limitations Course Vital Signs 03/27/22 03:56 Temperature 97.5 F L Pulse Rate 74 Respiratory 20 Rate Blood Pressure 136/92 O2 Sat by Pulse 100 Oximetry Disposition Clinical Impression: Dental abscess, Dental caries Disposition: HOME SELF-CARE Instructions (If sedation given, give patient instructions): Dental Abscess (ED), Toothache (ED) Prescriptions: Amoxic-Pot Clav 875-125Mg [Augmentin 875-125] 1 tab PO Q12HR #20 tablet Is patient prescribed a controlled substance at d/c from ED?: No Referrals: Nilton Rivera DDS [STAFF PHYSICIAN] - 1-2 days
== END 2022-03-27 05:00 | disposition home or self-care (01) ==
LOC: EC 03:53
DX: K02.9 Dental caries, unspecified (principal); K04.7 Periapical abscess without sinus; I10 Essential (primary) hypertension; G40.909 Epilepsy, unspecified, not intractable, without status epilepticus; F31.9 Bipolar disorder, unspecified; F17.200 Nicotine dependence, unspecified, uncomplicated; F12.90 Cannabis use, unspecified, uncomplicated; Z72.89 Other problems related to lifestyle; Z79.899 Other long term (current) drug therapy
CPT/HCPCS: 99282

== ENCOUNTER 2023-09-16 14:48 | Emergency (ER) | payer OTHER ==
--- NOTE | 2023-09-16 15:35 | ED ---
Extremity Problem HPI - General Chief complaint: Extremity Problem,Nontraumatic Stated complaint: Positive DVT right leg Time Seen by Provider: 09/16/23 15:28 Source: patient, family, RN notes reviewed Mode of arrival: ambulatory Limitations: no limitations - History of Present Illness Initial comments: Patient is a 33-year-old male presented ER with a chief complaint of a right leg DVT. Patient states about a week ago he started feeling pain on the bottom of his right foot. He states he tried conservative measures with slight relief. He states throughout the week his pain started to travel proximally into his calf and knee. Patient states he noticed his right calf is very tender and swollen compared to the left. Patient received outpatient venous Doppler ultrasound of his right lower extremity today which was positive for DVT. Ultrasound stated he should come to the ER for evaluation. Patient is not currently taking blood thinners. Patient denies any chest pain/palpitations, shortness of breath or abdominal pain. - Related Data Home Medications Medication Instructions Recorded Confirmed Disulfiram [Antabuse] 250 mg PO DAILY 08/06/18 08/06/18 Gabapentin [Neurontin] 300 mg PO TID 08/06/18 08/06/18 Ibuprofen [Motrin] 600 mg PO QID PRN 08/06/18 08/06/18 QUEtiapine [SEROquel] 200 mg PO BID 08/06/18 08/06/18 methocarbamoL [Robaxin-750] 750 mg PO QID PRN 08/06/18 08/06/18 traZODone HCL [Desyrel] 100 mg PO HS 08/06/18 08/06/18 Previous Rx's Medication Instructions Recorded Benzonatate [Tessalon Perles] 100 mg PO TID PRN #15 capsule 11/14/21 Amoxic-Pot Clav 875-125Mg 1 tab PO Q12HR #20 tablet 03/27/22 [Augmentin 875-125] Apixaban [Eliquis Starter Pack 0 mg PO DIRECTED 30 Days #1 09/16/23 (for VTE)] packet Allergies Allergy/AdvReac Type Severity Reaction Status Date / Time No Known Allergies Allergy Verified 09/16/23 15:24 Review of Systems ROS Statement: Those systems with pertinent positive or pertinent negative responses have been documented in the HPI. ROS Other: All systems not noted in ROS Statement are negative. Past Medical History Past Medical History: Hypertension Additional Past Medical History / Comment(s): Patient reports one seizure 04/30/17 with no treatment or known cause, 04-23-2018 fx ribs 9-12 on let/pneumo -left chest Thoravent placed on 06/02/2018. History of Any Multi-Drug Resistant Organisms: None Reported Past Surgical History: Hernia Repair, Orthopedic Surgery Additional Past Surgical History / Comment(s): Thoravent placed 06-02-18 for pneumothorax. hydrocele, rt shoulder sx, inguinal hernia repair as infant(not sure which side) Past Anesthesia/Blood Transfusion Reactions: No Reported Reaction Past Psychological History: Bipolar, Depression Smoking Status: Current every day smoker Past Alcohol Use History: Occasional Past Drug Use History: Marijuana - Past Family History Mother Family Medical History: No Reported History Father Family Medical History: Cancer, Prostate Disorder Additional Family Medical History / Comment(s): prostate cancer General Exam Limitations: no limitations General appearance: alert, in no apparent distress Respiratory exam: Present: normal lung sounds bilaterally. Absent: respiratory distress, wheezes, rales, rhonchi, stridor Cardiovascular Exam: Present: regular rate, normal rhythm, normal heart sounds. Absent: systolic murmur, diastolic murmur, rubs, gallop, clicks GI/Abdominal exam: Present: soft, normal bowel sounds. Absent: distended, tenderness, guarding, rebound, rigid Extremities exam: Present: other (Right calf is larger than left. 2+ bilateral dorsalis pedis pulse. Positive right Homans sign.) Psychiatric exam: Present: normal affect, normal mood Skin exam: Present: warm, dry, intact, normal color. Absent: rash Course Vital Signs 09/16/23 09/16/23 15:21 16:05 Temperature 98.9 F 98.1 F Pulse Rate 105 H 98 Respiratory 18 18 Rate Blood Pressure 142/92 136/84 O2 Sat by Pulse 99 98 Oximetry Medical Decision Making - Medical Decision Making Was pt. sent in by a medical professional or institution (, [place], [employer], urgent care, hospital, or group home...) When possible be specific @ -Outpatient ultrasound Did you speak to anyone other than the patient for history (EMS, parent, family, police, friend...)? What history was obtained from this source @ -Family Did you review nursing and triage notes (agree or disagree)? Why? @ -I reviewed and agree with nursing and triage notes Were old charts reviewed (outside hosp., previous admission, EMS record, old EKG, old radiological studies, urgent care reports/EKG's, group home records)? Report findings @ -Yes, I reviewed the ultrasound report fro 09/16/23 which was significant for right leg DVT. Differential Diagnosis (chest pain, altered mental status, abdominal pain women, abdominal pain men, vaginal bleeding, weakness, fever, dyspnea, syncope, headache, dizziness, GI bleed, back pain, seizure, CVA, palpatations, mental health, musculoskeletal)? @ -Differential Musculoskeletal: Muscular strain, contusion, ligament sprain, fracture, arthritis, septic arthritis, bursitis, cellulitis, muscle spasm, nerve compression, DVT, arterial occlusion, herpes zoster, electrolyte abnormality, tumor.... This is not meant to be in all inclusive list EKG interpreted by me (3pts min.). @ -None X-rays interpreted by me (1pt min.). @ -None done CT interpreted by me (1pt min.). @ -None done U/S interpreted by me (1pt. min.). @ -None done What testing was considered but not performed or refused? (CT, X-rays, U/S, lab s)? Why? @ -None What meds were considered but not given or refused? Why? @ -None Did you discuss the management of the patient with other professionals (professionals i.e. , [place], [employer], lab, RT, psych nurse, social professionals, feedmobile driver, teacher, strategic intelligence officer, outpatient case manager)? Give summary @ -No Was smoking cessation discussed for >3mins.? @ -Yes Was critical care preformed (if so, how long)? @ -No Were there social determinants of health that impacted care today? How? (Homelessness, low income, unemployed, alcoholism, drug addiction, transportation, low edu. Level, literacy, decrease access to med. care, penitentiary, rehab)? @ -No Was there de-escalation of care discussed even if they declined (Discuss DNR or withdrawal of care, Hospice)? DNR status @ -No What co-morbidities impacted this encounter? (DM, HTN, Smoking, COPD, CAD, Cancer, CVA, ARF, Chemo, Hep., AIDS, mental health diagnosis, sleep apnea, morbid obesity)? @ -HTN Was patient admitted / discharged? Hospital course, mention meds given and route, prescriptions, significant lab abnormalities, going to OR and other pertinent info. @ -Discharged. Upon examination patient's right calf was swollen and slightly tender. Patient was sent here from outpatient ultrasound due to findings of a right leg DVT. I reviewed the report from that ultrasound. Patient received by mouth 10 mg of Eliquis prior to discharge. Patient will be prescribed starter pack of Eliquis. I advised patient on return parameters. I stated he should follow up with his primary care in the next 1-2 days for outpatient management. I also discussed smoking cessation with the patient. Patient expressed understanding and agreement with care plan. Patient was discharged in stable condition with follow-up to PCP. Undiagnosed new problem with uncertain prognosis? @ -No Drug Therapy requiring intensive monitoring for toxicity (Heparin, Nitro, Insulin, Cardizem)? @ -No Were any procedures done? @ -No Diagnosis/symptom? @ -Right LE deep vein thrombosis Acute, or Chronic, or Acute on Chronic? @ -Acute Uncomplicated (without systemic symptoms) or Complicated (systemic symptoms)? @ -Uncomplicated Side effects of treatment? @ -No Exacerbation, Progression, or Severe Exacerbation? @ -No Poses a threat to life or bodily function? How? (Chest pain, [place], [place], pneumonia, PE, COPD, DKA, ARF, appy, cholecystitis, CVA, Diverticulitis, Homicidal, Suicidal, threat to staff... and all critical care pts) @ -Yes - Radiology Data Radiology results: report reviewed Disposition Clinical Impression: Deep vein thrombosis (DVT) of lower extremity Disposition: HOME SELF-CARE Condition: Stable Instructions (If sedation given, give patient instructions): Deep Vein Thrombosis (ED) Additional Instructions: Please return to the Emergency Department if symptoms worsen or any other concerns. Prescriptions: Apixaban [Eliquis Starter Pack (for VTE)] 0 mg PO DIRECTED 30 Days #1 packet Is patient prescribed a controlled substance at d/c from ED?: No Referrals: Nolberto Edward Jr, DO [Primary Care Provider] - 1-2 days Time of Disposition: 15:58
[2023-09-16 15:48] VITALS: RESP 18
[2023-09-16 16:15] VITALS: BP 136/84; PULSE 98; TEMP 98.1
[2023-09-16] MEDS ORDERED: APIXABAN 5 MG TAB PO SCH (21:00)
== END 2023-09-16 16:07 | disposition home or self-care (01) ==
LOC: EC 14:48
DX: I82.401 Acute embolism and thrombosis of unspecified deep veins of right lower extremity (principal); I10 Essential (primary) hypertension; F12.90 Cannabis use, unspecified, uncomplicated; F17.200 Nicotine dependence, unspecified, uncomplicated; Z86.59 Personal history of other mental and behavioral disorders
CPT/HCPCS: 99283

== ENCOUNTER → 2023-09-16 | Outpatient (CLI) | payer OTHER ==
--- NOTE | 2023-09-16 14:38 | US ---
EXAMINATION TYPE: US venous doppler duplex LE RT DATE OF EXAM: 09/16/2023 2:32 PM COMPARISON: US 2017 CLINICAL INDICATION: Male, 32 years old with history of M79.604 PAIN IN RIGHT LEG; Pain x 1.5 weeks. No hx of DVT. Patient does not take blood thinners. SIDE PERFORMED: Left TECHNIQUE: The lower extremity deep venous system is examined utilizing real time linear array sonog grover with graded compression, doppler sonography and color-flow sonography. VESSELS IMAGED: Common Femoral Vein Deep Femoral Vein Greater Saphenous Vein * Femoral Vein Popliteal Vein Small Saphenous Vein * Proximal Calf Veins (* superficial vessels) Right Leg: *Positive for DVT. Internal echoes seen within the proximal femoral vein, mid and distal femoral vein, down through the popliteal and prox calf veins. *Lack of color flow seen within these veins which do not compress. IMPRESSION: Examination is positive for DVT.
== END | disposition home or self-care (01) ==
LOC: RADUSWWP 14:03
PROVIDERS: ATTEND Family Medicine
DX: I82.401 Acute embolism and thrombosis of unspecified deep veins of right lower extremity (principal)

== ENCOUNTER → 2023-09-27 | Outpatient (CLI) | payer OTHER | END | disposition home or self-care (01) | LOC: LABWHC1 09:59 | PROVIDERS: ATTEND Family Medicine | DX: I82.411 Acute embolism and thrombosis of right femoral vein (principal) | CPT/HCPCS: 36415; 81241 ==

== ENCOUNTER → 2023-10-01 | Outpatient (CLI) | payer OTHER | END | disposition home or self-care (01) | LOC: LABWHC1 11:57 | PROVIDERS: ATTEND Family Medicine | DX: I82.411 Acute embolism and thrombosis of right femoral vein (principal) | CPT/HCPCS: 36415; 81241 ==

== ENCOUNTER 2024-02-07 16:15 | Emergency (ER) | payer OTHER ==
[2024-02-07 16:22] VITALS: BP 142/102; PULSE 101; RESP 16; TEMP 97.4
--- NOTE | 2024-02-07 16:42 | ED ---
General Adult HPI - General Chief complaint: Headache Stated complaint: R eye injury Time Seen by Provider: 02/07/24 16:25 Source: patient, RN notes reviewed Mode of arrival: ambulatory Limitations: no limitations - History of Present Illness Initial comments: Patient is a pleasant 33-year-old male present to the emergency department for right facial injury. Incident occurred 4 days ago. Patient did have some blurry vision however that has essentially resolved. Patient has discomfort below the right eye. No difficulty with movement of the eye. Patient did not pass out. No headache. No neck pain. Patient did have CT scan done prior to arrival. Patient was asking questions about results and was advised to come to the emergency department by staff there. - Related Data Home Medications Medication Instructions Recorded Confirmed Disulfiram [Antabuse] 250 mg PO DAILY 08/06/18 08/06/18 Gabapentin [Neurontin] 300 mg PO TID 08/06/18 08/06/18 Ibuprofen [Motrin] 600 mg PO QID PRN 08/06/18 08/06/18 QUEtiapine [SEROquel] 200 mg PO BID 08/06/18 08/06/18 methocarbamoL [Robaxin-750] 750 mg PO QID PRN 08/06/18 08/06/18 traZODone HCL [Desyrel] 100 mg PO HS 08/06/18 08/06/18 Previous Rx's Medication Instructions Recorded Benzonatate [Tessalon Perles] 100 mg PO TID PRN #15 capsule 11/14/21 Amoxic-Pot Clav 875-125Mg 1 tab PO Q12HR #20 tablet 03/27/22 [Augmentin 875-125] Apixaban [Eliquis Starter Pack 0 mg PO DIRECTED 30 Days #1 09/16/23 (for VTE)] packet Allergies Allergy/AdvReac Type Severity Reaction Status Date / Time No Known Allergies Allergy Verified 09/16/23 15:24 Review of Systems ROS Statement: Those systems with pertinent positive or pertinent negative responses have been documented in the HPI. ROS Other: All systems not noted in ROS Statement are negative. Constitutional: Denies: fever Eyes: Reports: as per HPI ENT: Denies: ear pain Respiratory: Denies: dyspnea Cardiovascular: Denies: chest pain Endocrine: Denies: fatigue Gastrointestinal: Denies: abdominal pain Musculoskeletal: Denies: back pain Neurological: Denies: headache, weakness, confusion Past Medical History Past Medical History: Hypertension Additional Past Medical History / Comment(s): Patient reports one seizure 04/30/17 with no treatment or known cause, 04-23-2018 fx ribs 9-12 on let/pneumo -left chest Thoravent placed on 06/02/2018. History of Any Multi-Drug Resistant Organisms: None Reported Past Surgical History: Hernia Repair, Orthopedic Surgery Additional Past Surgical History / Comment(s): Thoravent placed 06-02-18 for pneumothorax. hydrocele, rt shoulder sx, inguinal hernia repair as (not sure which side) Past Anesthesia/Blood Transfusion Reactions: No Reported Reaction Past Psychological History: Bipolar, Depression Smoking Status: Current every day smoker Past Alcohol Use History: Occasional Past Drug Use History: Marijuana - Past Family History Mother Family Medical History: No Reported History Father Family Medical History: Cancer, Prostate Disorder Additional Family Medical History / Comment(s): prostate cancer General Exam Limitations: no limitations General appearance: alert, in no apparent distress Head exam: Present: normocephalic Eye exam: Present: PERRL, EOMI, other (Minimal right eye subconjunctival hemorrhage) ENT exam: Present: other (Tenderness and mild swelling right maxillary sinus region. No sign of nasal septal hematoma) Neck exam: Present: normal inspection. Absent: tenderness Respiratory exam: Present: normal lung sounds bilaterally Cardiovascular Exam: Present: regular rate, normal rhythm GI/Abdominal exam: Present: soft. Absent: tenderness Extremities exam: Present: normal inspection Neurological exam: Present: alert, oriented X3, CN II-XII intact. Absent: motor sensory deficit Expanded Neurological exam: Present: protecting the airway Speech: Present: fluid speech Cranial nerves: EOM's Intact: Normal, Facial Sensation: Normal Motor strength exam: RUE: 5, LUE: 5, RLE: 5, LLE: 5 Eye Response: (4) open spontaneously Motor Response: (6) obeys commands Verbal Response: (5) oriented Psychiatric exam: Present: normal affect, normal mood Skin exam: Present: other (Mild ecchymosis below the right eye) Course Vital Signs 02/07/24 16:16 Temperature 97.4 F L Pulse Rate 101 H Respiratory 16 Rate Blood Pressure 142/102 O2 Sat by Pulse 99 Oximetry Medical Decision Making - Medical Decision Making Was pt. sent in by a medical professional or institution (JAD Moody, REGULATORY COMPLIANCE MANAGER, urgent care, hospital, or residential...) When possible be specific @ -Patient was sent in by CT scan department Did you speak to anyone other than the patient for history (EMS, parent, family, police, friend...)? What history was obtained from this source @ -No Did you review nursing and triage notes (agree or disagree)? Why? @ -I reviewed and agree with nursing and triage notes Were old charts reviewed (outside hosp., previous admission, EMS record, old EKG, old radiological studies, urgent care reports/EKG's, residential records)? Report findings @ -Images and report reviewed from CT scan prior to arrival showing sinus and orbital rim fracture Differential Diagnosis (chest pain, altered mental status, abdominal pain women, abdominal pain men, vaginal bleeding, weakness, fever, dyspnea, syncope, headache, dizziness, GI bleed, back pain, seizure, CVA, palpatations, mental health, musculoskeletal)? @ -Differential Headache: Migraine, tension, cluster, carbon monoxide, central venous thrombosis, pension karma temporal arteritis, acute closure glaucoma, intercranial hemorrhage, mastoiditis, sinusitis, head injury, this is not meant to be an all-inclusive list. EKG interpreted by me (3pts min.). @ -As above X-rays interpreted by me (1pt min.). @ -None done CT interpreted by me (1pt min.). @ -CT scan done today shows fracture of the inferior orbital rim as well as right maxillary sinus. CT brain without evidence of hemorrhage U/S interpreted by me (1pt. min.). @ -None done What testing was considered but not performed or refused? (CT, X-rays, U/S, labs)? Why? @ -Considered scanning however this was done prior to arrival What meds were considered but not given or refused? Why? @ -Consider antibiotics however patient is already on amoxicillin for dental infection Did you discuss the management of the patient with other professionals (professionals i.e. JAD Moody, REGULATORY COMPLIANCE MANAGER, lab, RT, psych nurse, social sciences research scientist, plumbing engineering draftsperson, teacher, attendance officer, manager of case management)? Give summary @ -Case was discussed with Dr. Thomason who does confirm patient can be discharged and follow-up. He states they did not send patient to the emergency department. Was smoking cessation discussed for >3mins.? @ -No Was critical care preformed (if so, how long)? @ -No Were there social determinants of health that impacted care today? How? (Homelessness, low income, unemployed, alcoholism, drug addiction, transportation, low edu. Level, literacy, decrease access to med. care, fpc, rehab)? @ -No Was there de-escalation of care discussed even if they declined (Discuss DNR or withdrawal of care, Hospice)? DNR status @ -No What co-morbidities impacted this encounter? (DM, HTN, Smoking, COPD, CAD, Cancer, CVA, ARF, Chemo, Hep., AIDS, mental health diagnosis, sleep apnea, morbid obesity)? @ -None Was patient admitted / discharged? Hospital course, mention meds given and route, prescriptions, significant lab abnormalities, going to OR and other pertinent info. @ -Patient is updated on results and plan. Patient is already on amoxicillin and for a dental problem and will continue this. Patient has at least several days left. Undiagnosed new problem with uncertain prognosis? @ -No Drug Therapy requiring intensive monitoring for toxicity (Heparin, Nitro, Insulin, Cardizem)? @ -No Were any procedures done? @ -No Diagnosis/symptom? @ -Maxillary sinus fracture. Orbital fracture. Acute, or Chronic, or Acute on Chronic? @ -Acute, acute Uncomplicated (without systemic symptoms) or Complicated (systemic symptoms)? @ -Default Side effects of treatment? @ -No Exacerbation, Progression, or Severe Exacerbation? @ -No Poses a threat to life or bodily function? How? (Chest pain, USA, [place], pneumonia, PE, COPD, DKA, ARF, appy, cholecystitis, CVA, Diverticulitis, Homicidal, Suicidal, threat to staff... and all critical care pts) @ -No Disposition Clinical Impression: Orbital fracture, Maxillary sinus fracture Disposition: HOME SELF-CARE Condition: Stable Instructions (If sedation given, give patient instructions): Facial Fracture (ED) Additional Instructions: Please follow-up with ophthalmology and ENT in the next day or 2 for recheck. Please also do follow-up with your primary care physician in the next day or 2 for recheck. Return for visual problems, fevers, increased pain, worsening sy mptoms or other concerns. Continue antibiotics. Is patient prescribed a controlled substance at d/c from ED?: No Referrals: Nolberto Edward Jr, DO [Primary Care Provider] - 1-2 days Trey Tripathi MD [STAFF PHYSICIAN] - 1-2 days Jerson Machuca MD [STAFF PHYSICIAN] - 1-2 days Time of Disposition: 16:58
[2024-02-07] MEDS: ACET/COD 300 MG/30 MG STARTER PACK 6 TAB BTL PO STA (17:08)
== END 2024-02-07 17:12 | disposition home or self-care (01) ==
LOC: EC 16:15
DX: S02.85XA Fracture of orbit, unspecified, initial encounter for closed fracture (principal); S02.40CA Maxillary fracture, right side, initial encounter for closed fracture; F17.200 Nicotine dependence, unspecified, uncomplicated; F12.90 Cannabis use, unspecified, uncomplicated; X58.XXXA Exposure to other specified factors, initial encounter
CPT/HCPCS: 99284

== ENCOUNTER → 2024-02-07 | Outpatient (CLI) | payer OTHER ==
--- NOTE | 2024-02-07 14:52 | CT ---
EXAMINATION TYPE: CT brain wo con DATE OF EXAM: 02/07/2024 COMPARISON: 04/30/2017 HISTORY: right eye bruising after being hit in the face with a softball CT DLP: 2401.4 mGycm. Automated Exposure Control for Dose Reduction was Utilized. TECHNIQUE: CT scan of the head is performed without contrast. Findings: The ventricles, basal cisterns and sulci over the convexities are within normal limits and there is n o mass effect or shift of midline structures. No abnormal density is seen throughout the brain parenchyma and there is no acute intra or extra-axia l hemorrhage. The posterior fossa including the brainstem, fourth ventricle and cerebellar pontine angles appear no rmal. The calvarium is intact. IMPRESSION: No acute bleed or mass effect.
--- NOTE | 2024-02-07 14:56 | CT ---
EXAMINATION TYPE: CT facial bones wo con DATE OF EXAM: 02/07/2024 COMPARISON: None HISTORY: right eye bruising after being hit in the face with a softball CT DLP: 2401.4 mGycm Automated exposure control for dose reduction was used. TECHNIQUE: CT scan of the sinuses is performed without contrast, axial images are obtained, coronal r eformatted images are also reviewed. FINDINGS: There is a nondisplaced fracture of the right inferior orbital rim. The intraorbital contents are nor mal and symmetric. There is no entrapment of the extraocular muscles. There are mildly displaced fractures involving the anterior and lateral enriquez of the right maxillary sinus and there is fluid within the right maxillary sinus likely indicating hemorrhage. The right lat eral orbital rim and lamina papyracea are intact. The ethmoid air cells and sphenoid sinuses are well aerated. There is mild mucosal thickening in the frontal sinuses. The mandible and zygomatic arches are intact. The mastoid air cells are well aerated and there is no nasal bone fracture. IMPRESSION: 1. Nondisplaced fracture of the right inferior orbital rim with no abnormality of the right orbit or extraocular muscles. 2. Minimally displaced fractures of the anterior and lateral enriquez of the right maxillary sinus with hemorrhage within the right maxillary sinus
== END | disposition home or self-care (01) ==
LOC: RADCTMAIN 14:27
PROVIDERS: ATTEND Family Medicine
DX: S05.8X1A Other injuries of right eye and orbit, initial encounter (principal); S02.40CA Maxillary fracture, right side, initial encounter for closed fracture; W21.07XA Struck by softball, initial encounter; Z79.01 Long term (current) use of anticoagulants
CPT/HCPCS: 70450; 70486

== ENCOUNTER 2024-02-17 12:40 | Emergency (ER) | payer OTHER ==
[2024-02-17] MEDS: HYDROmorphone 1 MG/ML 1 ML SYRINGE IM STA (13:54)
--- NOTE | 2024-02-17 14:03 | ED ---
General Adult HPI - General Chief complaint: Recheck/Abnormal Lab/Rx Stated complaint: congestion Time Seen by Provider: 02/17/24 12:59 Source: patient, RN notes reviewed, old records reviewed Mode of arrival: ambulatory Limitations: no limitations - History of Present Illness Initial comments: 33-year-old male presents emergency department chief complaint of right-sided facial pain. He was seen here 10 days ago with a fracture to his right orbit maxillary sinus patient was struck in the face by a softball. Patient states that he had some blood drained out after he stopped antibiotics and states he had increasing congestion which is making it uncomfortable. Patient denies any fevers or chills denies any headache no neck pain no other complaints. Patient states he has been waiting for his referral to ENT from his PCP - Related Data Home Medications Medication Instructions Recorded Confirmed Disulfiram [Antabuse] 250 mg PO DAILY 08/06/18 08/06/18 Gabapentin [Neurontin] 300 mg PO TID 08/06/18 08/06/18 Ibuprofen [Motrin] 600 mg PO QID PRN 08/06/18 08/06/18 QUEtiapine [SEROquel] 200 mg PO BID 08/06/18 08/06/18 methocarbamoL [Robaxin-750] 750 mg PO QID PRN 08/06/18 08/06/18 traZODone HCL [Desyrel] 100 mg PO HS 08/06/18 08/06/18 Previous Rx's Medication Instructions Recorded Benzonatate [Tessalon Perles] 100 mg PO TID PRN #15 capsule 11/14/21 Amoxic-Pot Clav 875-125Mg 1 tab PO Q12HR #20 tablet 03/27/22 [Augmentin 875-125] Apixaban [Eliquis Starter Pack 0 mg PO DIRECTED 30 Days #1 09/16/23 (for VTE)] packet Acetaminophen-Codeine 300-30mg 1 tab PO Q4H PRN #12 tablet 02/17/24 [Tylenol #3] Allergies Allergy/AdvReac Type Severity Reaction Status Date / Time No Known Allergies Allergy Verified 02/17/24 12:49 Review of Systems ROS Statement: Those systems with pertinent positive or pertinent negative responses have been documented in the HPI. ROS Other: All systems not noted in ROS Statement are negative. Past Medical History Past Medical History: Hypertension Additional Past Medical History / Comment(s): Patient reports one seizure 04/30/17 with no treatment or known cause, 04-23-2018 fx ribs 9-12 on let/pneumo -left chest Thoravent placed on 06/02/2018. History of Any Multi-Drug Resistant Organisms: None Reported Past Surgical History: Hernia Repair, Joint Replacement, Orthopedic Surgery Additional Past Surgical History / Comment(s): Thoravent placed 06-02-18 for pneumothorax. hydrocele, rt shoulder sx, inguinal hernia repair as (not sure which side) Past Anesthesia/Blood Transfusion Reactions: No Reported Reaction Past Psychological History: Bipolar, Depression Smoking Status: Current every day smoker Past Alcohol Use History: Occasional Past Drug Use History: Marijuana - Past Family History Mother Family Medical History: No Reported History Father Family Medical History: Cancer, Prostate Disorder Additional Family Medical History / Comment(s): prostate cancer General Exam Limitations: no limitations General appearance: alert, in no apparent distress Head exam: Present: atraumatic, normocephalic, normal inspection Eye exam: Present: normal appearance, PERRL, EOMI, periorbital tenderness. Absent: scleral icterus, conjunctival injection, periorbital swelling ENT exam: Present: normal oropharynx, mucous membranes moist, TM's normal bilaterally, normal external ear exam. Absent: normal exam (Mild to moderate right maxillary and inferior orbital tenderness) Neck exam: Present: normal inspection, full ROM. Absent: tenderness, meningismus, lymphadenopathy Respiratory exam: Present: normal lung sounds bilaterally. Absent: respiratory distress, wheezes, rales, rhonchi, stridor Cardiovascular Exam: Present: regular rate, normal rhythm, normal heart sounds. Absent: systolic murmur, diastolic murmur, rubs, gallop, clicks Neurological exam: Present: alert, oriented X3, reflexes normal. Absent: motor sensory deficit Course Vital Signs 02/17/24 12:47 Temperature 98.2 F Pulse Rate 102 H Respiratory 20 Rate Blood Pressure 153/107 O2 Sat by Pulse 100 Oximetry Medical Decision Making - Medical Decision Making Was pt. sent in by a medical professional or institution (, PA, [employer] BPC ARCHITECT, urgent care, hospital, or jail...) When possible be specific @ -No Did you speak to anyone other than the patient for history (EMS, parent, family, police, friend...)? What history was obtained from this source @ -No Did you review nursing and triage notes (agree or disagree)? Why? @ -I reviewed and agree with nursing and triage notes Were old charts reviewed (outside hosp., previous admission, EMS record, old EKG, old radiological studies, urgent care reports/EKG's, jail records)? Report findings @ -Reviewed CT, ER notes from prior visit Differential Diagnosis (chest pain, altered mental status, abdominal pain women, abdominal pain men, vaginal bleeding, weakness, fever, dyspnea, syncope, headache, dizziness, GI bleed, back pain, seizure, CVA, palpatations, mental health, musculoskeletal)? @ -Fracture, maxillary sinus fracture, sinus infection, facial pain EKG interpreted by me (3pts min.). @ -None X-rays interpreted by me (1pt min.). @ -None done CT interpreted by me (1pt min.). @ -None done U/S interpreted by me (1pt. min.). @ -None done What testing was considered but not performed or refused? (CT, X-rays, U/S, labs)? Why? @ -None What meds were considered but not given or refused? Why? @ -None Did you discuss the management of the patient with other professionals (professionals i.e. , PA, [employer] BPC ARCHITECT, lab, RT, psych nurse, neonatal social worker, investment manager, teacher, associate loan officer, medical case worker)? Give summary @ -No Was smoking cessation discussed for >3mins.? @ -No Was critical care preformed (if so, how long)? @ -No Were there social determinants of health that impacted care today? How? (Homelessness, low income, unemployed, alcoholism, drug addiction, transportation, low edu. Level, literacy, decrease access to med. care, residential, rehab)? @ -No Was there de-escalation of care discussed even if they declined (Discuss DNR or withdrawal of care, Hospice)? DNR status @ -No What co-morbidities impacted this encounter? (DM, HTN, Smoking, COPD, CAD, Cancer, CVA, ARF, Chemo, Hep., AIDS, mental health diagnosis, sleep apnea, morbid obesity)? @ -None Was patient admitted / discharged? Hospital course, mention meds given and route, prescriptions, significant lab abnormalities, going to OR and other pertinent info. @ -Discharge patient CT was reviewed patient has no signs of entrapment patient is requesting analgesics. Patient will be placed on antibiotics secondary to increasing congestion with known fracture. Patient advised to urged PCP for ENT follow-up. Undiagnosed new problem with uncertain prognosis? @ -No Drug Therapy requiring intensive monitoring for toxicity (Heparin, Nitro, Insulin, Cardizem)? @ -No Were any procedures done? @ -No Diagnosis/symptom? @ -Facial fractures Acute, or Chronic, or Acute on Chronic? @ -Acute Uncomplicated (without systemic symptoms) or Complicated (systemic symptoms)? @ -uncomplicated Side effects of treatment? @ -No Exacerbation, Progression, or Severe Exacerbation? @ -No Poses a threat to life or bodily function? How? (Chest pain, [place], [place], pneumonia, PE, COPD, DKA, ARF, appy, cholecystitis, CVA, Diverticulitis, Homicidal, Suicidal, threat to staff... and all critical care pts) @ -No Disposition Clinical Impression: Maxillary sinus fracture, Orbital fracture Disposition: HOME SELF-CARE Instructions (If sedation given, give patient instructions): Facial Fracture (ED) Additional Instructions: Please return to the Emergency Department if symptoms worsen or any other concerns. Prescriptions: Acetaminophen-Codeine 300-30mg [Tylenol #3] 1 tab PO Q4H PRN #12 tablet PRN Reason: pain Is patient prescribed a controlled substance at d/c from ED?: No Referrals: Nolberto Edward Jr, DO [Primary Care Provider] - 1-2 days Time of Disposition: 14:03
[2024-02-17 14:27] VITALS: BP 134/79; PULSE 96; RESP 18; TEMP 98.4
== END 2024-02-17 14:08 | disposition home or self-care (01) ==
LOC: EC 12:40
DX: S02.40CA Maxillary fracture, right side, initial encounter for closed fracture (principal); S02.85XA Fracture of orbit, unspecified, initial encounter for closed fracture; F17.200 Nicotine dependence, unspecified, uncomplicated; F12.90 Cannabis use, unspecified, uncomplicated; W21.07XA Struck by softball, initial encounter
CPT/HCPCS: 99283; 96372; J1170

== ENCOUNTER → 2024-04-15 | Outpatient (CLI) | payer OTHER ==
--- NOTE | 2024-04-15 14:42 | XR ---
EXAMINATION TYPE: XR wrist complete RT DATE OF EXAM: 04/15/2024 CLINICAL HISTORY: pain TECHNIQUE: Frontal, lateral and oblique images of the right wrist are obtained. Navicular views also obtained. COMPARISON: None. FINDINGS: There is no acute fracture/dislocation evident. The joint spaces appear within normal limits. The o verlying soft tissue appears unremarkable. IMPRESSION: There is no acute fracture or dislocation seen. ICD 10 NO FRACTURE, INITIAL EVALUATION
== END | disposition home or self-care (01) ==
LOC: RADXRMAIN 14:03
PROVIDERS: ATTEND Family Medicine
DX: M25.531 Pain in right wrist (principal); M67.431 Ganglion, right wrist